=== PATIENT | male | born 1950 | race Caucasian/White ===

== ENCOUNTER → 2016-12-01 | Outpatient (CLI) | payer MEDICARE, OTHER ==
[2016-12-01 11:06] LABS: ALT 46 U/L (21-72); AST 41 U/L (17-59); Alkaline Phosphatase 46 U/L (38-126); Anion Gap 11 mmol/L; Blood Urea Nitrogen 19 mg/dL (9-20); Calcium 9.6 mg/dL (8.4-10.2); Carbon Dioxide 25 mmol/L (22-30); Chloride 112 mmol/L (98-107); Cholesterol 119 mg/dL (<200); Glucose 100 mg/dL (74-99); HDL Cholesterol 30 mg/dL (40-60); Non-African American GFR(MDRD) >60 (>60 ml/min/1.73 sqM); Sodium 148 mmol/L (137-145); Total Bilirubin 0.4 mg/dL (0.2-1.3); Total Protein 6.1 g/dL (6.3-8.2); Triglycerides 127 mg/dL (<150)
[2016-12-01 11:35] LABS: Prostate Specific Antigen 1.55 ng/mL (0.00-4.00)
== END | disposition home or self-care (01) ==
LOC: LABWHC1 10:24
PROVIDERS: ATTEND Family Medicine
DX: R35.1 Nocturia (principal); E88.81 Metabolic syndrome and other insulin resistance
CPT/HCPCS: 36415; 80053; 80061; 84153

== ENCOUNTER → 2017-05-08 | Outpatient (CLI) | payer MEDICARE, OTHER ==
[2017-05-08 11:18] LABS: CHCM 33.7; HCT 42.8 % (39.0-53.0); HDW 2.87; HGB 14.5 gm/dL (13.0-17.5); MCH 30.3 pg (25.0-35.0); MCV 89.3 fL (80.0-100.0); Mean Platelet Volume 9.3; WBC 6.5 k/uL (3.8-10.6)
[2017-05-08 11:54] LABS: ALT 54 U/L (21-72); AST 31 U/L (17-59); Alkaline Phosphatase 51 U/L (38-126); Anion Gap 9 mmol/L; Blood Urea Nitrogen 16 mg/dL (9-20); Calcium 9.3 mg/dL (8.4-10.2); Carbon Dioxide 25 mmol/L (22-30); Chloride 109 mmol/L (98-107); Cholesterol 119 mg/dL (<200); Glucose 118 mg/dL (74-99); HDL Cholesterol 32 mg/dL (40-60); Non-African American GFR(MDRD) >60 (>60 ml/min/1.73 sqM); Potassium 3.6 mmol/L (3.5-5.1); Sodium 143 mmol/L (137-145); Total Bilirubin 0.3 mg/dL (0.2-1.3); Total Protein 5.8 g/dL (6.3-8.2)
[2017-05-08 12:23] LABS: Prostate Specific Antigen 1.34 ng/mL (0.00-4.00)
== END | disposition home or self-care (01) ==
LOC: LABWHC1 10:43
PROVIDERS: ATTEND Family Medicine
DX: Z00.01 Encounter for general adult medical examination with abnormal findings (principal); N40.1 Benign prostatic hyperplasia with lower urinary tract symptoms; R53.83 Other fatigue; E66.3 Overweight
CPT/HCPCS: 36415; 80053; 80061; 84153; 85027

== ENCOUNTER → 2017-08-02 | Outpatient (CLI) | payer MEDICARE, OTHER ==
--- NOTE | 2017-08-02 14:30 | CT ---
EXAMINATION TYPE: CT sinus wo con DATE OF EXAM: 08/02/2017 COMPARISON: NONE HISTORY: Chronic sinusitis CT DLP: 618.10 mGycm. Automated Exposure Control for Dose Reduction was Utilized. TECHNIQUE: CT scan of the sinuses is performed without contrast, axial images are obtained, coronal r eformatted images are also reviewed. FINDINGS: Sphenoid sinus has a normal appearance. Frontal sinus demonstrates mild mucosal thickening. No air-fluid levels. There is retention cyst or polyps within both maxillary sinuses greater on the right with mild mucosa l thickening compatible with chronic sinusitis. Ethmoid air cells demonstrate minimal mucosal thickening.. The ostiomeatal complex is patent bilaterally on the coronal images. Visualized portion of mastoid air cells show no abnormal opacification. The globes are intact bilate rally. Slight nasal septal deviation noted. IMPRESSION: 1. Findings compatible with chronic mild sinusitis with no diagnostic evidence of sinusitis. Sinonasa l polyp or mucous retention cyst within the inferior margin bilaterally maxillary antrum.
== END | disposition home or self-care (01) ==
LOC: RADCTMAIN 13:21
PROVIDERS: ATTEND Otolaryngology
DX: J32.9 Chronic sinusitis, unspecified (principal)
CPT/HCPCS: 70486

== ENCOUNTER 2017-10-11 15:14 | Inpatient (IN) | payer MEDICARE, OTHER ==
[2017-10-11] MEDS ORDERED: SODIUM CHLORIDE 0.9% 1,000 ML IV STA ×2 (15:44)
--- NOTE | 2017-10-11 15:47 | ED ---
Weakness HPI - General Chief complaint: Weakness Stated complaint: hypotension Time Seen by Provider: 10/11/17 15:38 Source: patient, family, RN notes reviewed Mode of arrival: wheelchair Limitations: no limitations - History of Present Illness Initial comments: This is a 67-year-old male who was sent over here from his doctor's office after he presented with complaints of diarrhea nausea no vomiting low blood pressure. He apparently was diagnosed with a left sided pneumonia. He an x- ray done Sunday which was 3 days ago he had results today. He's had decreased oral intake he has had a cough for several weeks he states he's had chills and sweats. He is noted upon arousal have a 91/53 with pressure. No chest pain no focal weakness. MD Complaint: generalized weakness - Related Data Home Medications Medication Instructions Recorded Confirmed Aspirin 81 mg PO QAM 07/19/15 10/11/17 Celecoxib [CeleBREX] 200 mg PO BID 07/19/15 10/11/17 Folic Acid 0.4 mg PO QAM 07/19/15 10/11/17 Gabapentin [Neurontin] 600 mg PO BID 07/19/15 10/11/17 Losartan/Hydrochlorothiazide 1 tab PO QAM 07/19/15 10/11/17 [Losartan-Hctz 100-25 mg Tab] Multivitamin [Men's Multi-Vitamin] 1 tab PO QAM 07/19/15 10/11/17 Omeprazole [PriLOSEC] 20 mg PO AC-BRKFST 07/19/15 10/11/17 Pramipexole Di-HCl [Mirapex] 0.5 mg PO HS 07/19/15 10/11/17 Vitamin B Complex 1 cap PO QAM 07/19/15 10/11/17 amLODIPine [Norvasc] 5 mg PO QAM 07/19/15 10/11/17 Fenofibrate Nanocrystallized 160 mg PO QAM 05/17/16 10/11/17 [Triglide] Levothyroxine Sodium [Synthroid] 75 mcg PO QAM 10/11/17 10/11/17 Tamsulosin HCl [Flomax] 0.4 mg PO QAM 10/11/17 10/11/17 Allergies Allergy/AdvReac Type Severity Reaction Status Date / Time No Known Allergies Allergy Verified 10/11/17 16:07 Review of Systems ROS Statement: Those systems with pertinent positive or pertinent negative responses have been documented in the HPI. ROS Other: All systems not noted in ROS Statement are negative. Past Medical History Past Medical History: Diabetes Mellitus, GERD/Reflux, Hypertension, Osteoarthritis (OA) Additional Past Medical History / Comment(s): 07/19/15 Pt presented to [facility] ER via EMS with chest pain at rest, L sided and sharp as well as constant. Pain improved with NGT. He is being admitted with clinical impression of chest pain. Other HX: generalized arthritis, DJD, neuropathy bilateral legs, diverticulosis, pt states he is diabetic- he states he believes he is on a oral diabetic med but one is not listed with his home medication. History of Any Multi-Drug Resistant Organisms: None Reported Past Surgical History: Adenoidectomy, Breast Surgery, Cholecystectomy, Joint Replacement, Orthopedic Surgery, Tonsillectomy Additional Past Surgical History / Comment(s): L breast benign lumpectomy, bilateral legs cysts removed, R shoulder surgery -supraspinatus, bilateral unicompartmental replacements, colonoscopy, vasectomy with reversal. Past Anesthesia/Blood Transfusion Reactions: No Reported Reaction Past Psychological History: No Psychological Hx Reported Smoking Status: Never smoker Past Alcohol Use History: None Reported Past Drug Use History: None Reported - Past Family History Father Family Medical History: Unable to Obtain Additional Family Medical History / Comment(s): Pt adopted and does not know family history. General Exam - General Exam Comments Initial Comments: This is a well-developed well-nourished awake alert oriented times 3 male Limitations: no limitations General appearance: alert, lethargic Head exam: Present: atraumatic, normocephalic, normal inspection Eye exam: Present: normal appearance, PERRL, EOMI. Absent: scleral icterus, conjunctival injection, periorbital swelling ENT exam: Present: mucous membranes dry Neck exam: Present: normal inspection. Absent: tenderness, meningismus, lymphadenopathy Respiratory exam: Present: decreased breath sounds. Absent: respiratory distress, wheezes, rales, rhonchi, stridor Cardiovascular Exam: Present: regular rate, normal rhythm, normal heart sounds. Absent: systolic murmur, diastolic murmur, rubs, gallop, clicks GI/Abdominal exam: Present: soft, normal bowel sounds. Absent: distended, tenderness, guarding, rebound, rigid Extremities exam: Present: normal inspection, full ROM, normal capillary refill. Absent: tenderness, pedal edema, joint swelling, calf tenderness Back exam: Present: normal inspection Neurological exam: Present: alert, oriented X3, CN II-XII intact Psychiatric exam: Present: normal affect, normal mood Skin exam: Present: warm, dry, intact, normal color. Absent: rash Course Vital Signs 10/11/17 10/11/17 15:19 15:52 Temperature 97.8 F Pulse Rate 79 72 Respiratory 20 16 Rate Blood Pressure 76/38 93/51 O2 Sat by Pulse 97 98 Oximetry Medical Decision Making - Medical Decision Making I did discuss the findings with the patient and his . Patient will be admitted he does demonstrate evidence of acute renal failure dehydration as well as episodic hypotension. It will be admitted he also does demonstrate some evidence of acidosis. - Lab Data Result diagrams: 10/11/17 15:35 10/11/17 15:35 Lab Results 10/11/17 10/11/17 10/11/17 Range/Units 15:35 15:35 15:35 WBC 9.1 (3.8-10.6) k/uL RBC 5.14 (4.30-5.90) m/uL Hgb 14.8 (13.0-17.5) gm/dL Hct 45.5 (39.0-53.0) % MCV 88.5 (80.0-100.0) fL MCH 28.8 (25.0-35.0) pg MCHC 32.6 (31.0-37.0) g/dL RDW 14.6 (11.5-15.5) % Plt Count 190 (150-450) k/uL Neutrophils % 76 % Lymphocytes % 12 % Monocytes % 8 % Eosinophils % 1 % Basophils % 0 % Neutrophils # 7.0 (1.3-7.7) k/uL Lymphocytes # 1.1 (1.0-4.8) k/uL Monocytes # 0.7 (0-1.0) k/uL Eosinophils # 0.1 (0-0.7) k/uL Basophils # 0.0 (0-0.2) k/uL Sodium 139 (137-145) mmol/L Potassium 4.3 (3.5-5.1) mmol/L Chloride 110 H (98-107) mmol/L Carbon Dioxide 11 L (22-30) mmol/L Anion Gap 18 mmol/L BUN 45 H (9-20) mg/dL Creatinine 3.22 H (0.66-1.25) mg/dL Est GFR (CKD-EPI)AfAm 22 (>60 ml/min/1.73 sqM) Est GFR (CKD-EPI)NonAf 19 (>60 ml/min/1.73 sqM) Glucose 147 H (74-99) mg/dL Calcium 9.5 (8.4-10.2) mg/dL Magnesium 2.2 (1.6-2.3) mg/dL Total Bilirubin 0.5 (0.2-1.3) mg/dL AST 38 (17-59) U/L ALT 28 (21-72) U/L Alkaline Phosphatase 43 (38-126) U/L Total Creatine Kinase 93 (55-170) U/L CK-MB (CK-2) 1.2 (0.0-2.4) ng/mL CK-MB (CK-2) Rel Index 1.3 Troponin I <0.012 (0.000-0.034) ng/mL Total Protein 6.3 (6.3-8.2) g/dL Albumin 3.7 (3.5-5.0) g/dL - EKG Data -: EKG Interpreted by Md EKG shows normal: sinus rhythm (Sinus rhythm rate 74. Interval 196 QRS duration 114 QT since QTC 412/457 red bundle-branch block with anterior fascicular block evidence of old inferior changes.) - Radiology Data Radiology results: report reviewed (Imaging was reviewed no acute findings noted evidence of infiltrate at this time.), image reviewed Critical Care Time Critical Care Time: Yes (This did include initial presentation with history physical labs x-rays sev) Total Critical Care Time: 31 Disposition Clinical Impression: Acute renal failure (ARF), Dehydration, Metabolic acidosis, Hypotensive episode Disposition: ADMITTED IP TO THIS [facility] Condition: Stable Referrals: Nicolás Mir MD [Primary Care Provider] - 1-2 days
[2017-10-11 15:55] LABS: Basophils % (A) 0 %; Eosinophils # (A) 0.1 k/uL (0-0.7); Eosinophils % (A) 1 %; HCT 45.5 % (39.0-53.0); HGB 14.8 gm/dL (13.0-17.5); Lymphocytes # (A) 1.1 k/uL (1.0-4.8); Lymphocytes % (A) 12 %; MCH 28.8 pg (25.0-35.0); MCHC 32.6 g/dL (31.0-37.0); MCV 88.5 fL (80.0-100.0); Mean Platelet Volume 10.4; Monocytes # (A) 0.7 k/uL (0-1.0); Monocytes % (A) 8 %; Neutrophils % (A) 76 %; Platelet Count 190 k/uL (150-450); RBC 5.14 m/uL (4.30-5.90); RDW 14.6 % (11.5-15.5); WBC 9.1 k/uL (3.8-10.6)
--- NOTE | 2017-10-11 16:07 | XR ---
EXAMINATION TYPE: XR chest 2V DATE OF EXAM: 10/11/2017 COMPARISON: 05/18/2016 HISTORY: Recent pneumonia. Hypotension. Prior lung nodule seen on outside chest radiograph. TECHNIQUE: Frontal and lateral views of the chest are obtained. FINDINGS: There is eventration of the right hemidiaphragm. There is no focal air space opacity, pleur al effusion, or pneumothorax seen. The cardiac silhouette size is within normal limits. The osseou s structures are intact. IMPRESSION: No acute cardiopulmonary process. No focal nodule seen on today's examination although i s seen on the prior examination recommendation would remain for CT.
[2017-10-11 16:08] LABS: Albumin 3.7 g/dL (3.5-5.0); Calcium 9.5 mg/dL (8.4-10.2); Magnesium 2.2 mg/dL (1.6-2.3); Potassium 4.3 mmol/L (3.5-5.1); Total Bilirubin 0.5 mg/dL (0.2-1.3); Total Protein 6.3 g/dL (6.3-8.2)
[2017-10-11 16:15] LABS: Creatine Kinase 93 U/L (55-170)
[2017-10-11 16:28] LABS: Creatine Kinase MB 1.2 ng/mL (0.0-2.4); Troponin I <0.012 ng/mL (0.000-0.034)
[2017-10-11] MEDS ORDERED: SODIUM CHLORIDE 0.9% 1,000 ML IV SCH (17:15)
[2017-10-11] MEDS ORDERED: SODIUM BICARB 8.4% 50 ML VIAL (1 MEQ/ML) IV ONE (17:17)
[2017-10-11] MEDS ORDERED: DEXTROSE 5% IN WATER 1,000 ML with SODIUM BICARB (1 MEQ/ML) 50 ML IV ONE (17:30)
[2017-10-11] MEDS ORDERED: CALCIUM CARBONATE 500 MG CHEWABLE PO PRN (19:13)
[2017-10-11] MEDS ORDERED: ONDANSETRON 4 MG/2 ML VIAL IVP PRN (19:13)
[2017-10-11] MEDS ORDERED: NALOXONE 0.4 MG/ML 1 ML VIAL IV PRN (19:13)
[2017-10-11] MEDS ORDERED: MELATONIN 3 MG TABLET PO PRN (19:13)
[2017-10-11] MEDS ORDERED: LORazepam 0.5 MG TAB PO PRN (19:13)
[2017-10-11] MEDS: LACTATED RINGERS 1,000 ML IV SCH (19:43)
[2017-10-11] MEDS: GABAPENTIN 100 MG CAP PO SCH (21:41)
[2017-10-11] MEDS: PRAMIPEXOLE 0.5 MG TAB PO SCH (21:41)
--- NOTE | 2017-10-11 22:13 | HP ---
HISTORY AND PHYSICAL DATE OF ADMISSION: 10/11/2017 DATE OF SERVICE: 10/11/2017 PRESENTING COMPLAINT: Weak, tired, rundown. HISTORY OF PRESENTING COMPLAINT: This patient presented here from Dr. Mir's office. Patient's chronic stable medical conditions include GERD, hypertension, hyperlipidemia, osteoarthritis, peripheral neuropathy. The patient for 4 days has been having increasing diarrhea, anywhere from 4 to 5 times a day; watery; no blood; some abdominal discomfort. No fever. He has been becoming tired and confused; in fact, during the history-giving he keeps repeating he is getting confused. Appetite has been poor. Decreased urine output in the last 2 days. Feeling tired, dry, rundown. He was found to be hypotensive in the ER. He also stated that for about 12 or 13 weeks he has been having recurring upper respiratory tract symptoms, including runny nose, cough, slight phlegm. REVIEW OF SYSTEMS: CONSTITUTIONAL: Weak, tired. HEENT: None. RESPIRATORY: As above. CARDIOVASCULAR: None. GASTROINTESTINAL: As above. GENITOURINARY: Decreased urine output. DERMATOLOGICAL: None. HEMATOLOGICAL: None. LYMPHATICS: None. PSYCHIATRY: He was a bit confused. NEUROLOGICAL: Peripheral neuropathy. PAST MEDICAL HISTORY: 1. GERD. 2. Hyperlipidemia. 3. Hypertension. 4. Osteoarthritis. 5. Arthritis. 6. Chronic low back pain. 7. Peripheral neuropathy. 8. Diverticulosis. PAST SURGICAL HISTORY: 1. Adenoidectomy. 2. Breast surgery. 3. Cholecystectomy. 4. Cardiac catheterization. 5. Left breast benign lumpectomy. 6. Bilateral leg cysts removed. 7. Bilateral knee unicompartment replacements. 8. Colonoscopy. 9. Vasectomy with reversal. 10.Left thumb partial amputation. SOCIAL HISTORY: Lives with his . 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 No smoking. Used to drink socially but stopped in 1997. Denies recreational drugs. FAMILY HISTORY: Patient is adopted. HOME MEDICATIONS: 1. Flomax 0.4 mg p.o. daily. 2. Mirapex 0.5 mg p.o. at bedtime. 3. Prilosec 20 mg with breakfast. 4. Losartan/hydrochlorothiazide 100/25 one tablet p.o. daily. 5. Synthroid 75 mcg p.o. daily. 6. Neurontin 600 mg p.o. b.i.d. 7. Triglide 160 mg p.o. daily. 8. Norvasc 5 mg p.o. daily. 9. Vitamin B complex 1 capsule p.o. daily. 10.Men's Multivitamin 1 tablet p.o. daily. 11.Folic acid 0.4 mg p.o. daily. 12.Celebrex 200 mg p.o. b.i.d. 13.Aspirin 81 mg p.o. daily. ALLERGIES: NONE. PHYSICAL EXAMINATION: VITAL SIGNS ON PRESENTATION: Temperature 97.8, pulse 79, respiration 20, blood pressure 76/38, pulse ox 97% on room air. GENERAL APPEARANCE: Well built, BMI 36.9. Lying in bed, tired-appearing. Somewhat lethargic but able answer questions. EYES: Pupils equal. Conjunctivae normal. HEENT: External appearance of nose and ears normal. Oral cavity dry mucous membrane. NECK: JVD not raised. Mass not palpable. RESPIRATORY: Effort normal. LUNGS: Fair air entry. CARDIOVASCULAR: First and second sounds normal. No edema. ABDOMEN: Soft, non nontender. Liver and spleen not palpable. LYMPHATIC: No lymph node palpable in neck or axillae. PSYCHIATRY: The patient is awake. Answering questions but somewhat slow, lethargic. NEUROLOGICAL: Pupils equal. Cranial nerves grossly intact. Power and sensation grossly intact. INVESTIGATIONS: White count 9.1, hemoglobin 14.8, potassium 4.3, bicarb 11, BUN 45, creatinine 3.22. Patient's labs from April of 2017 show BUN and creatinine to be normal. ASSESSMENT: 1. Acute severe gastroenteritis of 4 days' duration with watery stools, no blood. Need to check for ova and parasites and rule out community-acquired C difficile, though patient denies any obvious recent history of antibiotics. 2. Acute severe renal failure, likely prerenal; cannot rule out possibly an acute tubular necrosis component. Patient is volume-depleted from severe diarrhea and also has been taking losartan/hydrochlorothiazide and also has been on Celebrex. 3. Gastroesophageal reflux disease. 4. Hyperlipidemia. 5. Hypotension from volume loss. 6. Primary osteoarthritis in multiple joints. 7. Peripheral neuropathy. 8. Acute delirium from electrolyte abnormalities. PLAN: Patient will be started on lactated Ringers. Will hold off patient's losartan/hydrochlorothiazide and Celebrex; and given the renal failure, will also cut back the dose of Neurontin. Patient will be put on a full liquid diet. Stool will be sent for ova and parasites and C difficile. Given the absence of fever and leukocytosis, we will hold off any empirical antibiotics at this time. Expect patient to respond with fluid resuscitation. Will give Lovenox for DVT prophylaxis. MMODL / IJN: [id number] /
[2017-10-12] MEDS: ACETAMINOPHEN TAB 325 MG TAB PO PRN ×3 (03:40→17:39)
[2017-10-12] MEDS: LEVOTHYROXINE 75 MCG TAB PO SCH (05:45)
[2017-10-12] MEDS: LACTATED RINGERS 1,000 ML IV SCH ×3 (05:51→20:16)
[2017-10-12] MEDS: ASPIRIN 81 MG PO SCH (08:30)
[2017-10-12] MEDS: PANTOPRAZOLE 40 MG TABLET PO SCH (08:30)
[2017-10-12] MEDS: amLODIPine 5 MG TAB PO SCH (08:30)
[2017-10-12] MEDS: GABAPENTIN 100 MG CAP PO SCH ×3 (08:31→20:15)
[2017-10-12] MEDS: TAMSULOSIN 0.4 MG CAP.ER.24H PO SCH (08:31)
[2017-10-12] MEDS: FENOFIBRATE 160 MG TAB PO SCH (08:31)
[2017-10-12] MEDS: FOLIC ACID 1 MG TAB PO SCH (08:31)
[2017-10-12 09:45] LABS: Potassium 3.5 mmol/L (3.5-5.1)
[2017-10-12 11:02] VITALS: BMI 36.8
[2017-10-12] MEDS ORDERED: MELATONIN 5 MG TABLET PO PRN (13:23)
[2017-10-12 13:25] LABS: Appearance,Urine Clear (Clear); Bilirubin,Urine Negative (Negative); Blood,Urine Negative (Negative); Color,Urine Yellow; Glucose,Urine (UA) Negative (Negative); Ketones,Urine Negative (Negative); Leukocyte Esterase,Urine Negative (Negative); Nitrite,Urine Negative (Negative); Protein,Urine Negative (Negative); Specific Gravity,Urine 1.016 (1.001-1.035); Urobilinogen,Urine <2.0 mg/dL (<2.0)
[2017-10-12] MEDS: DICLOFENAC SODIUM GEL 100 GM TUBE TOPICAL SCH ×3 (14:07→20:15)
--- NOTE | 2017-10-12 15:11 | PN ---
PROGRESS NOTE DATE OF SERVICE: 10/12/2017 PRESENTING COMPLAINT: Weak and tired. INTERVAL HISTORY: Patient presented with acute gastroenteritis, acute liver failure and some delirium from electrolyte abnormalities. Patient's diarrhea is greatly improved. Urine output is picking up, looking more comfortable. Diet has been advanced. REVIEW OF SYSTEMS: Done for constitutional, cardiovascular, GI, pulmonary; relevant findings as above. CURRENT MEDICATIONS: Resumed, includes IV fluids. PHYSICAL EXAMINATION: Temperature 97, pulse 89, respiration 18, blood pressure 140/67, pulse ox 97% on room air. GENERAL APPEARANCE: Lying in bed, far more awake. EYES: Pupils equal, conjunctivae normal. HEENT: External appearance of nose and ears normal, oral cavity normal. NECK: JVD not raised. Mass not palpable. Respiratory effort normal. Lungs are clear. CARDIOVASCULAR: First and second sounds are normal. No edema. ABDOMEN: Soft, nontender. Liver and spleen not palpable. PSYCHIATRY: Alert and oriented x3. Mood and affect normal. INVESTIGATIONS: Potassium 3.5, chloride 115, bicarb 11, BUN 44, creatinine 1.81. ASSESSMENT: 1. Acute severe gastroenteritis , self-limiting. 2. Acute severe renal failure likely prerenal from volume depletion and patient being on losartan hydrochlorothiazide and also on Celebrex. 3. Gastroesophageal reflux disease. 4. Hyperlipidemia. 5. Hypotension from volume loss, improving. 6. Primary osteoarthritis in multiple joints. 7. Peripheral neuropathy. 8. Acute delirium from electrolyte abnormality is improving. PLAN: Continue with IV fluids. Diet has been advanced. Repeat electrolytes in the morning. For his arthritis, will use a diclofenac gel, topical. Care was discussed with the patient. MMODL / IJN: [id number] /
[2017-10-12] MEDS ORDERED: VANCOMYCIN 1,000 MG in SODIUM CHLORIDE 0.9% 250 ML IVPB STA (18:30)
[2017-10-12] MEDS ORDERED: VANCOMYCIN IV PER PHARMACY 1 EACH MISC MISCELLANE PRN (18:30)
[2017-10-12] MEDS ORDERED: VANCOMYCIN 2,000 MG in SODIUM CHLORIDE 0.9% 500 ML IVPB ONE (19:00)
[2017-10-12] MEDS: DIPHENOX-ATROP 2.5-0.025 MG 1 EACH TAB PO SCH (20:15)
[2017-10-12] MEDS: PRAMIPEXOLE 0.5 MG TAB PO SCH (20:15)
[2017-10-13] MEDS: LACTATED RINGERS 1,000 ML IV SCH ×2 (03:18→11:21)
[2017-10-13] MEDS: LEVOTHYROXINE 75 MCG TAB PO SCH (05:44)
[2017-10-13 06:36] VITALS: BP 124/74; PULSE 81; RESP 20; TEMP 98.8
[2017-10-13 09:11] LABS: Calcium 9.2 mg/dL (8.4-10.2); Potassium 3.4 mmol/L (3.5-5.1)
[2017-10-13] MEDS: FENOFIBRATE 160 MG TAB PO SCH (09:33)
[2017-10-13] MEDS: DIPHENOX-ATROP 2.5-0.025 MG 1 EACH TAB PO SCH (09:33)
[2017-10-13] MEDS: DICLOFENAC SODIUM GEL 100 GM TUBE TOPICAL SCH (09:33)
[2017-10-13] MEDS: ASPIRIN 81 MG PO SCH (09:33)
[2017-10-13] MEDS: amLODIPine 5 MG TAB PO SCH (09:33)
[2017-10-13] MEDS: TAMSULOSIN 0.4 MG CAP.ER.24H PO SCH (09:33)
[2017-10-13] MEDS: PANTOPRAZOLE 40 MG TABLET PO SCH (09:33)
[2017-10-13] MEDS: GABAPENTIN 100 MG CAP PO SCH (09:33)
[2017-10-13] MEDS: FOLIC ACID 1 MG TAB PO SCH (09:39)
[2017-10-13] MEDS ORDERED: VANCOMYCIN 1,750 MG in SODIUM CHLORIDE 0.9% 250 ML IVPB SCH ×2 (10:00→19:00)
[2017-10-13] MEDS ORDERED: Potassium Replacement Protocol 1 EACH MISC MISCELLANE PRN ×2 (10:48→11:04)
--- NOTE | 2017-10-13 11:50 | P.DS ---
Providers Date of admission: 10/11/17 17:15 Expected date of discharge: 09/26/17 Attending physician: Yg Bailey Primary care physician: [facility] Course: Final diagnoses 1. Acute severe gastroenteritis. C. difficile ruled out 2. Acute severe renal failure, suspect prerenal secondary to volume depletion as well as patient was on losartan/HCTZ and Celebrex, improving. 3. Gastroesophageal reflux disease 4. Hyperlipidemia 5.Hypotension from volume loss, resolved 6. Primary osteoarthritis, multiple joints 7. Acute delirium, acute metabolic encephalopathy, from electrolyte imbalance, resolved Hospital course: This is a 67-year-old gentleman admitted with acute gastroenteritis, acute renal failure, and multiple other medical issues. Tested negative for C. difficile colitis. Maintained on IV fluid hydration, Lomotil, electrolyte supplementation. Tolerating soft bland diet. Significant clinical improvement. Patient is being discharged home in a stable condition with guarded prognosis. Microbiology 10/11/17 15:35 Blood Blood Culture Gram Stain - Preliminary 10/11/17 15:35 Blood Blood Culture - Preliminary Coagulase Negative Staph 10/11/17 15:35 Blood Blood Culture - Final Physical Exam:VSS,ALert & oriented X3, No acute distress. CV: Regular S1 and S2 , no edema. LUNGS: Clear to auscultation. ABD: Soft, nontender, nondistended, no organomegaly. Positive bowel sounds.NEURO: No focal deficits. The impression and plan of care has been dictated as directed. : I performed a history and examination of this patient, discussed the same with the dictator. I agree with the dictator's note ,documented as a scribe. Any additional findings or plans will be noted. Time taken: 35 minutes Patient Condition at Discharge: Stable Plan - Discharge Summary Discharge Rx Participant: No New Discharge Prescriptions: New Diclofenac Sodium Gel [Voltaren Gel] 2 gm TOPICAL QID tube Diphenox-Atrop 2.5-0.025 mg [Lomotil] 1 each PO TID PRN #10 tab PRN Reason: Diarrhea Gabapentin [Neurontin] 100 mg PO TID #90 cap Continue Omeprazole [PriLOSEC] 20 mg PO AC-BRKFST Aspirin 81 mg PO QAM amLODIPine [Norvasc] 5 mg PO QAM Folic Acid 0.4 mg PO QAM Multivitamin [Men's Multi-Vitamin] 1 tab PO QAM Pramipexole Di-HCl [Mirapex] 0.5 mg PO HS Vitamin B Complex 1 cap PO QAM Fenofibrate Nanocrystallized [Triglide] 160 mg PO QAM Levothyroxine Sodium [Synthroid] 75 mcg PO QAM Tamsulosin HCl [Flomax] 0.4 mg PO QAM Discontinued Gabapentin [Neurontin] 600 mg PO BID Celecoxib [CeleBREX] 200 mg PO BID Losartan/Hydrochlorothiazide [Losartan-Hctz 100-25 mg Tab] 1 tab PO QAM Discharge Medication List Aspirin 81 mg PO QAM 07/19/15 [History] Folic Acid 0.4 mg PO QAM 07/19/15 [History] Multivitamin [Men's Multi-Vitamin] 1 tab PO QAM 07/19/15 [History] Omeprazole [PriLOSEC] 20 mg PO AC-BRKFST 07/19/15 [History] Pramipexole Di-HCl [Mirapex] 0.5 mg PO HS 07/19/15 [History] Vitamin B Complex 1 cap PO QAM 07/19/15 [History] amLODIPine [Norvasc] 5 mg PO QAM 07/19/15 [History] Fenofibrate Nanocrystallized [Triglide] 160 mg PO QAM 05/17/16 [History] Levothyroxine Sodium [Synthroid] 75 mcg PO QAM 10/11/17 [History] Tamsulosin HCl [Flomax] 0.4 mg PO QAM 10/11/17 [History] Diclofenac Sodium Gel [Voltaren Gel] 2 gm TOPICAL QID tube 10/13/17 [Rx] Diphenox-Atrop 2.5-0.025 mg [Lomotil] 1 each PO TID PRN #10 tab 10/13/17 [Rx] Gabapentin [Neurontin] 100 mg PO TID #90 cap 10/13/17 [Rx] Follow up Appointment(s)/Referral(s): Nicolás Mir MD [Primary Care Provider] - 3 Days Ambulatory/Diagnostic Orders: Complete Blood Count w/diff [LAB.AMB] Time Frame: 3 Days, Location: Determined By Patient Activity/Diet/Wound Care/Special Instructions: Soft bland diet
[2017-10-13] MEDS ORDERED: POTASSIUM CHLORIDE ER 20 MEQ TAB.ER PO SCH (12:00)
== END 2017-10-13 13:58 | disposition home or self-care (01) | DRG 682 ==
LOC: EC 15:14 → 4MS4W 17:15
PROVIDERS: ADMIT Hospitalist; ATTEND Hospitalist
DX: N17.9 Acute kidney failure, unspecified (principal); G93.41 Metabolic encephalopathy; E87.2 Acidosis; K52.9 Noninfective gastroenteritis and colitis, unspecified; E86.0 Dehydration; K21.9 Gastro-esophageal reflux disease without esophagitis; I10 Essential (primary) hypertension; E78.5 Hyperlipidemia, unspecified; M54.5 Low back pain; G89.29 Other chronic pain; I95.9 Hypotension, unspecified; E11.42 Type 2 diabetes mellitus with diabetic polyneuropathy; E86.9 Volume depletion, unspecified; M15.0 Primary generalized (osteo)arthritis; T46.5X5A Adverse effect of other antihypertensive drugs, initial encounter; T39.395A Adverse effect of other nonsteroidal anti-inflammatory drugs [NSAID], initial encounter; Z96.653 Presence of artificial knee joint, bilateral; Z90.49 Acquired absence of other specified parts of digestive tract; Z98.890 Other specified postprocedural states; Z79.82 Long term (current) use of aspirin; Z79.899 Other long term (current) drug therapy; Z79.890 Hormone replacement therapy; Z89.012 Acquired absence of left thumb
CPT/HCPCS: 36415; 71046; 80048; 80053; 81003; 82550; 82553; 83735; 84484; 85025; 87040; 87077; 87186; 87324; 87328; 87329; 93005; 96360; 96361; 99291

== ENCOUNTER 2017-10-15 10:53 | Emergency (ER) | payer MEDICARE, OTHER ==
[2017-10-15] MEDS ORDERED: SODIUM CHLORIDE 0.9% 1,000 ML IV STA (11:48)
[2017-10-15] MEDS ORDERED: diphenhydrAMINE 50 MG/ML 1 ML VIAL IVP STA (11:48)
[2017-10-15] MEDS ORDERED: ONDANSETRON 4 MG/2 ML VIAL IVP STA (11:48)
--- NOTE | 2017-10-15 11:50 | ED ---
General Adult HPI - General Chief complaint: Dizziness Stated complaint: DIZZINESS Time Seen by Provider: 10/15/17 11:33 Source: patient, RN notes reviewed, old records reviewed Mode of arrival: wheelchair Limitations: no limitations - History of Present Illness Initial comments: This is a 67-year-old male to the ER for evaluation patient presents today for evaluation regards to dizziness. Room spinning around ataxia. Patient has significant medical history recent diagnosis of flu, pneumonia hospital admission. Patient states he felt better that he went home but is isn't physically worsened. No current active nausea vomiting but he states he cannot walk is very ataxic and is unable to move his head without severe spinning room spinning lightheadedness and nausea. Patient denies headache - Related Data Home Medications Medication Instructions Recorded Confirmed Aspirin 81 mg PO QAM 07/19/15 10/15/17 Folic Acid 0.4 mg PO QAM 07/19/15 10/15/17 Multivitamin [Men's Multi-Vitamin] 1 tab PO QAM 07/19/15 10/15/17 Omeprazole [PriLOSEC] 20 mg PO AC-BRKFST 07/19/15 10/15/17 Pramipexole Di-HCl [Mirapex] 0.5 mg PO HS 07/19/15 10/15/17 Vitamin B Complex 1 cap PO QAM 07/19/15 10/15/17 amLODIPine [Norvasc] 5 mg PO QAM 07/19/15 10/15/17 Fenofibrate Nanocrystallized 160 mg PO QAM 05/17/16 10/15/17 [Triglide] Levothyroxine Sodium [Synthroid] 75 mcg PO QAM 10/11/17 10/15/17 Tamsulosin HCl [Flomax] 0.4 mg PO QAM 10/11/17 10/15/17 Diphenox-Atrop 2.5-0.025 mg 1 tab PO TID PRN 10/15/17 10/15/17 [Lomotil] Previous Rx's Medication Instructions Recorded Diclofenac Sodium Gel [Voltaren 2 gm TOPICAL QID tube 10/13/17 Gel] Gabapentin [Neurontin] 100 mg PO TID #90 cap 10/13/17 Meclizine [Antivert] 25 mg PO TID #30 tab 10/15/17 Ondansetron Odt [Zofran ODT] 4 mg PO Q8HR PRN #30 tab 10/15/17 Allergies Allergy/AdvReac Type Severity Reaction Status Date / Time No Known Allergies Allergy Verified 10/15/17 11:35 Review of Systems ROS Statement: Those systems with pertinent positive or pertinent negative responses have been documented in the HPI. ROS Other: All systems not noted in ROS Statement are negative. Past Medical History Past Medical History: Chest Pain / Angina, GERD/Reflux, Hyperlipidemia, Hypertension, Osteoarthritis (OA), Pneumonia Additional Past Medical History / Comment(s): . generalized arthritis,chronic lower backpain, DJD, neuropathy bilateral legs, diverticulosis, History of Any Multi-Drug Resistant Organisms: None Reported Past Surgical History: Adenoidectomy, Breast Surgery, Cholecystectomy, Heart Catheterization, Joint Replacement, Orthopedic Surgery, Tonsillectomy Additional Past Surgical History / Comment(s): L breast benign lumpectomy, bilateral legs cysts removed, R shoulder surgery -supraspinatus, bilateral knees unicompartmental replacements, colonoscopy, vasectomy with reversal.lt thumb partial amputaion Past Anesthesia/Blood Transfusion Reactions: No Reported Reaction Past Psychological History: No Psychological Hx Reported Smoking Status: Never smoker Past Alcohol Use History: None Reported Past Drug Use History: None Reported - Past Family History Father Family Medical History: Unable to Obtain Additional Family Medical History / Comment(s): Pt adopted and does not know family history. General Exam Limitations: no limitations General appearance: alert, in no apparent distress Head exam: Present: atraumatic, normocephalic, normal inspection Eye exam: Present: normal appearance, PERRL, EOMI, nystagmus. Absent: scleral icterus, conjunctival injection, periorbital swelling ENT exam: Present: normal exam, mucous membranes moist Neck exam: Present: normal inspection. Absent: tenderness, meningismus, lymphadenopathy Respiratory exam: Present: normal lung sounds bilaterally. Absent: respiratory distress, wheezes, rales, rhonchi, stridor Cardiovascular Exam: Present: regular rate, normal rhythm, normal heart sounds. Absent: systolic murmur, diastolic murmur, rubs, gallop, clicks GI/Abdominal exam: Present: soft, normal bowel sounds. Absent: distended, tenderness, guarding, rebound, rigid Extremities exam: Present: normal inspection, full ROM, normal capillary refill. Absent: tenderness, pedal edema, joint swelling, calf tenderness Back exam: Present: normal inspection Neurological exam: Present: alert, oriented X3, CN II-XII intact Psychiatric exam: Present: normal affect, normal mood Skin exam: Present: warm, dry, intact, normal color. Absent: rash Course Vital Signs 10/15/17 10/15/17 10/15/17 11:15 12:15 13:25 Temperature 97.8 F 98.0 F 97.5 F L Pulse Rate 80 76 73 Respiratory 18 18 18 Rate Blood Pressure 128/61 123/70 134/69 O2 Sat by Pulse 96 95 96 Oximetry 10/15/17 14:15 Temperature 97.4 F L Pulse Rate 77 Respiratory 20 Rate Blood Pressure 128/62 O2 Sat by Pulse 95 Oximetry - Reevaluation(s) Reevaluation #1: 10/15/17 15:14 patient feeling better able to ambulate EKG Findings - EKG Comments: EKG Findings:: EKG shows normal sinus rhythm rate of 75, [place] 180, QRS 114, QTc 462 Medical Decision Making - Medical Decision Making 67 male to the ED w vertigo, diziness, room spinning vertigo is now resolved, ok for discharge to return with worseing symptoms - Lab Data Result diagrams: 10/15/17 12:48 10/15/17 12:48 Lab Results 10/15/17 10/15/17 10/15/17 Range/Units 12:48 12:48 12:48 WBC 8.0 (3.8-10.6) k/uL RBC 5.05 (4.30-5.90) m/uL Hgb 14.6 (13.0-17.5) gm/dL Hct 43.5 (39.0-53.0) % MCV 86.1 (80.0-100.0) fL MCH 28.9 (25.0-35.0) pg MCHC 33.6 (31.0-37.0) g/dL RDW 14.4 (11.5-15.5) % Plt Count 210 (150-450) k/uL Neutrophils % 68 % Lymphocytes % 17 % Monocytes % 9 % Eosinophils % 3 % Basophils % 0 % Neutrophils # 5.5 (1.3-7.7) k/uL Lymphocytes # 1.4 (1.0-4.8) k/uL Monocytes # 0.7 (0-1.0) k/uL Eosinophils # 0.3 (0-0.7) k/uL Basophils # 0.0 (0-0.2) k/uL Sodium 145 (137-145) mmol/L Potassium 3.6 (3.5-5.1) mmol/L Chloride 110 H (98-107) mmol/L Carbon Dioxide 21 L (22-30) mmol/L Anion Gap 14 mmol/L BUN 24 H (9-20) mg/dL Creatinine 0.90 (0.66-1.25) mg/dL Est GFR (CKD-EPI)AfAm >90 (>60 ml/min/1.73 sqM) Est GFR (CKD-EPI)NonAf 88 (>60 ml/min/1.73 sqM) Glucose 115 H (74-99) mg/dL Calcium 9.7 (8.4-10.2) mg/dL Phosphorus 2.9 (2.5-4.5) mg/dL Magnesium 2.0 (1.6-2.3) mg/dL Total Bilirubin 0.3 (0.2-1.3) mg/dL AST 38 (17-59) U/L ALT 49 (21-72) U/L Alkaline Phosphatase 58 (38-126) U/L Total Creatine Kinase 72 (55-170) U/L CK-MB (CK-2) 1.4 (0.0-2.4) ng/mL CK-MB (CK-2) Rel Index 1.9 Troponin I <0.012 (0.000-0.034) ng/mL Total Protein 5.7 L (6.3-8.2) g/dL Albumin 3.4 L (3.5-5.0) g/dL - Radiology Data Radiology results: report reviewed (CT brain CT a head and neck negative for acute disease), image reviewed Disposition Clinical Impression: Dizziness, Vertigo Disposition: HOME SELF-CARE Condition: Good Instructions: Vertigo (ED), Dizziness (ED) Is patient prescribed a controlled substance at d/c from ED?: No Referrals: Nicolás Mir MD [Primary Care Provider] - 1-2 days
[2017-10-15 13:02] LABS: Basophils % (A) 0 %; Eosinophils # (A) 0.3 k/uL (0-0.7); Eosinophils % (A) 3 %; HCT 43.5 % (39.0-53.0); HGB 14.6 gm/dL (13.0-17.5); Lymphocytes # (A) 1.4 k/uL (1.0-4.8); Lymphocytes % (A) 17 %; MCH 28.9 pg (25.0-35.0); MCHC 33.6 g/dL (31.0-37.0); MCV 86.1 fL (80.0-100.0); Mean Platelet Volume 9.8; Monocytes # (A) 0.7 k/uL (0-1.0); Monocytes % (A) 9 %; Neutrophils # (A) 5.5 k/uL (1.3-7.7); Neutrophils % (A) 68 %; Platelet Count 210 k/uL (150-450); RBC 5.05 m/uL (4.30-5.90); RDW 14.4 % (11.5-15.5)
[2017-10-15 13:13] LABS: ALT 49 U/L (21-72); AST 38 U/L (17-59); Albumin 3.4 g/dL (3.5-5.0); Alkaline Phosphatase 58 U/L (38-126); Anion Gap 14 mmol/L; Blood Urea Nitrogen 24 mg/dL (9-20); Calcium 9.7 mg/dL (8.4-10.2); Carbon Dioxide 21 mmol/L (22-30); Chloride 110 mmol/L (98-107); Glucose 115 mg/dL (74-99); Phosphorus 2.9 mg/dL (2.5-4.5); Potassium 3.6 mmol/L (3.5-5.1); Sodium 145 mmol/L (137-145); Total Bilirubin 0.3 mg/dL (0.2-1.3); Total Protein 5.7 g/dL (6.3-8.2)
[2017-10-15 13:28] LABS: Creatine Kinase 72 U/L (55-170)
--- NOTE | 2017-10-15 13:28 | XR ---
EXAMINATION TYPE: XR chest 2V DATE OF EXAM: 10/15/2017 COMPARISON: 10/11/2017 HISTORY: Weakness and dizziness TECHNIQUE: Frontal and lateral views of the chest are obtained. FINDINGS: There is no focal air space opacity, pleural effusion, or pneumothorax seen. There is pul monary per inflation and flattening of the diaphragms on the lateral image suggestive of underlying C OPD. The cardiac silhouette size is within normal limits. The osseous structures are intact. IMPRESSION: No acute cardiopulmonary process. Findings suggestive of underlying COPD.
--- NOTE | 2017-10-15 13:32 | CT ---
EXAMINATION TYPE: CT brain wo con DATE OF EXAM: 10/15/2017 COMPARISON: NONE HISTORY: Dizziness and weakness. CT DLP: 1121 mGycm Automated exposure control for dose reduction was used. FINDINGS: There is moderate generalized degenerative change with a greater frontal lobe component. No midline s hift or mass effect. Nodular prominence in distribution of the left MCA measuring 4 mm. Changes of chronic sinusitis noted. Calvarium intact. IMPRESSION: NO ACUTE HEMORRHAGE OR MASS EFFECT. DEGENERATIVE CHANGES ARE SEEN WITH A GREATER FRONTAL LOBE COMPONE NT. IF THERE IS CONCERN FOR ACUTE ISCHEMIA CORRELATE WITH MRI CLINICALLY WARRANTED. THERE IS A 4 MM NODULAR PROMINENCE OF THE LEFT MCA SUSPICIOUS FOR ANEURYSM. RECOMMEND FOLLOW-UP MRA C IRCLE OF RAY. NO ACUTE INTRACRANIAL HEMORRHAGE.
[2017-10-15 13:41] LABS: Creatine Kinase MB 1.4 ng/mL (0.0-2.4); Troponin I <0.012 ng/mL (0.000-0.034)
[2017-10-15] MEDS ORDERED: RX INFO: IV CONTRAST WAS GIVEN 1 EACH MISC MISCELLANE PRN (13:46)
[2017-10-15 14:22] VITALS: TEMP 97.4
--- NOTE | 2017-10-15 14:37 | CT ---
EXAMINATION TYPE: CT angio head neck DATE OF EXAM: 10/15/2017 HISTORY: Dizziness and weakness. COMPARISON: Carotid ultrasound June 15, 2014 CT DLP: 370 mGycm. Automated Exposure Control for Dose Reduction was Utilized. TECHNIQUE: CTA scan of the neck is performed with IV Contrast, patient injected with 65 mL of Isovue 370, axial images are obtained, coronal and sagittal reformatted images are reviewed. Three-D recons tructed images are created on an independent workstation and reviewed. FINDINGS: Carotid/Vascular Structures: There is normal three-vessel origin from the aortic arch. No significant plaque or stenosis is seen. Bilateral subclavian arteries show no significant stenosis. Right common carotid artery shows normal origin from right brachiocephalic artery. There is slightly tortuous cou rse without significant plaque or stenosis. There is patent external carotid artery without significa nt plaque or stenosis. No significant plaque at carotid bulb level is identified. Right internal sahu tid artery shows no significant plaque or stenosis. There is no significant plaque or stenosis in the left common or internal carotid arteries including at level of carotid bulb. Slightly tortuous course is present. There is patent left external carotid artery without significant plaque or stenosis. There is dominant right vertebral artery. Vertebral arteries are patent to basilar junction. There is patent right posterior communicating artery. There is hypoplastic left posterior communicating arter y. There is no significant stenosis or aneurysm in the posterior circulation. Images of the anterior circulation show patent anterior communicating artery. There is no significant stenosis or aneurysmal change seen. Other: Mild to moderate spurring and disc space narrowing C5-C6 level is present. IMPRESSION: 1. No significant focal stenosis in common or internal carotid arteries bilaterally. 2. No significant stenosis or aneurysmal change at level of [place].
[2017-10-15 15:15] VITALS: BP 128/70; PULSE 73; RESP 18
== END 2017-10-15 15:40 | disposition home or self-care (01) ==
LOC: EC 10:53
DX: R42 Dizziness and giddiness (principal); R27.0 Ataxia, unspecified; K21.9 Gastro-esophageal reflux disease without esophagitis; E78.5 Hyperlipidemia, unspecified; I10 Essential (primary) hypertension; Z98.890 Other specified postprocedural states; Z79.82 Long term (current) use of aspirin; Z79.899 Other long term (current) drug therapy
CPT/HCPCS: 96361 ×2; 96374 ×2; 96375 ×2; 99285 ×2; 36415; 93005; 80053; 82550; 82553; 83735; 84100; 84484; 85025; 71046; 70496; 70450; 70498; J1200; J2405; Q9967

== ENCOUNTER → 2017-11-06 | Outpatient (CLI) | payer MEDICARE, OTHER ==
--- NOTE | 2017-11-06 09:38 | MR ---
EXAMINATION TYPE: MR angio head wo con DATE OF EXAM: 11/06/2017 COMPARISON: CT brain and CT [employer]otech head and neck dated 10/15/2017 HISTORY: Vertigo TECHNIQUE: Time of flight images focusing on the [place] were performed without contrast. 2-D and 3-D postprocessing imaging is performed. FINDINGS: There is no evidence of hemodynamically significant stenosis or dissection. The left verteb ral artery is dominant. There is an elongated common trunk of the superior cerebellar artery and the left with the P1 segment of the posterior cerebral artery. There is additionally ectasia and a sharp acute angle of the basilar artery as it courses leftward to create an elongated common trunk. The sup erior cerebellar artery on the right originates strictly from the acute turn of the basilar artery as does the right posterior cerebral artery. Incidental note is made of mild mucosal thickening of the bilateral maxillary sinuses. IMPRESSION: 1. No evidence of focal vascular occlusion, hemodynamically significant stenosis, intracranial aneury sm or dissection. 2. Normal variant anatomy of the posterior circulation as described above. 3. Mild mucosal thickening in the maxillary sinuses.
== END | disposition home or self-care (01) ==
LOC: RADMRIMAIN 08:10
PROVIDERS: ATTEND Family Medicine
DX: R42 Dizziness and giddiness (principal)
CPT/HCPCS: 70544

== ENCOUNTER 2018-07-28 16:27 | Observation (INO) | payer MEDICARE, OTHER ==
[2018-07-28 17:21] LABS: Basophils # (A) 0.1 k/uL (0-0.2); Basophils % (A) 1 %; Eosinophils # (A) 0.2 k/uL (0-0.7); Eosinophils % (A) 3 %; HCT 43.5 % (39.0-53.0); HGB 14.3 gm/dL (13.0-17.5); Lymphocytes # (A) 1.2 k/uL (1.0-4.8); Lymphocytes % (A) 13 %; MCH 29.7 pg (25.0-35.0); MCV 90.2 fL (80.0-100.0); Mean Platelet Volume 9.6; Monocytes # (A) 0.6 k/uL (0-1.0); Monocytes % (A) 7 %; Neutrophils # (A) 6.6 k/uL (1.3-7.7); Neutrophils % (A) 74 %; Platelet Count 160 k/uL (150-450); RBC 4.82 m/uL (4.30-5.90); RDW 14.6 % (11.5-15.5); WBC 8.9 k/uL (3.8-10.6)
[2018-07-28 17:38] LABS: ALT 31 U/L (21-72); AST 23 U/L (17-59); Albumin 3.6 g/dL (3.5-5.0); Alkaline Phosphatase 34 U/L (38-126); Anion Gap 7 mmol/L; Blood Urea Nitrogen 16 mg/dL (9-20); Calcium 10.4 mg/dL (8.4-10.2); Carbon Dioxide 26 mmol/L (22-30); Chloride 111 mmol/L (98-107); Creatine Kinase 54 U/L (55-170); Glucose 140 mg/dL (74-99); Sodium 144 mmol/L (137-145); Total Bilirubin 0.4 mg/dL (0.2-1.3)
[2018-07-28 17:50] LABS: Creatine Kinase MB 0.8 ng/mL (0.0-2.4); Troponin I <0.012 ng/mL (0.000-0.034)
[2018-07-28 17:55] LABS: Partial Thromboplastin Time 22.3 sec (22.0-30.0); Prothrombin Time 10.3 sec (9.0-12.0)
--- NOTE | 2018-07-28 18:13 | ED ---
General Adult HPI - General Chief complaint: Shortness of Breath Stated complaint: CHEST PAIN/EMMA Time Seen by Provider: 07/28/18 16:45 Source: patient, RN notes reviewed Mode of arrival: wheelchair Limitations: no limitations - History of Present Illness Initial comments: Patient is a pleasant 68-year-old female presenting to the emergency Department with complaints of shortness of breath. Onset of symptoms was this morning. Symptoms persist however now have resolved since oxygen has been using emergency department. Patient has had several episodes of chest pressure throughout the day, each lasting under a minute. Patient has not had this in a couple of hours and no chest discomfort at this time. Discomfort was moderate. No associated nausea or vomiting or diaphoresis. No history of similar symptoms previously. Patient is a nonsmoker. - Related Data Home Medications Medication Instructions Recorded Confirmed Aspirin 81 mg PO QAM 07/19/15 07/28/18 Folic Acid 0.4 mg PO QAM 07/19/15 07/28/18 Multivitamin [Men's Multi-Vitamin] 1 tab PO QAM 07/19/15 07/28/18 Pramipexole Di-HCl [Mirapex] 0.5 mg PO HS 07/19/15 07/28/18 Vitamin B Complex 1 cap PO QAM 07/19/15 07/28/18 amLODIPine [Norvasc] 5 mg PO QAM 07/19/15 07/28/18 Fenofibrate Nanocrystallized 160 mg PO QAM 05/17/16 07/28/18 [Triglide] Levothyroxine Sodium [Synthroid] 75 mcg PO QAM 10/11/17 07/28/18 Tamsulosin HCl [Flomax] 0.4 mg PO QAM 10/11/17 07/28/18 Celecoxib [CeleBREX] 200 mg PO BID 07/28/18 07/28/18 Furosemide [Lasix] 20 mg PO DAILY PRN 07/28/18 07/28/18 Gabapentin 600 mg PO BID 07/28/18 07/28/18 Losartan/Hydrochlorothiazide 1 tab PO DAILY 07/28/18 07/28/18 [Hyzaar 100-25 Tablet] Allergies Allergy/AdvReac Type Severity Reaction Status Date / Time No Known Allergies Allergy Verified 07/28/18 18:37 Review of Systems ROS Statement: Those systems with pertinent positive or pertinent negative responses have been documented in the HPI. ROS Other: All systems not noted in ROS Statement are negative. Constitutional: Denies: fever Eyes: Denies: eye pain ENT: Denies: ear pain Respiratory: Reports: dyspnea. Denies: cough Cardiovascular: Reports: chest pain. Denies: palpitations Endocrine: Denies: fatigue Gastrointestinal: Denies: abdominal pain Genitourinary: Denies: dysuria Musculoskeletal: Denies: back pain Skin: Denies: rash Neurological: Denies: weakness Past Medical History Past Medical History: Chest Pain / Angina, GERD/Reflux, Hyperlipidemia, Hypertension, Osteoarthritis (OA), Pneumonia Additional Past Medical History / Comment(s): . generalized arthritis,chronic lower backpain, DJD, neuropathy bilateral legs, diverticulosis, History of Any Multi-Drug Resistant Organisms: None Reported Past Surgical History: Adenoidectomy, Breast Surgery, Cholecystectomy, Heart Catheterization, Joint Replacement, Orthopedic Surgery, Tonsillectomy Additional Past Surgical History / Comment(s): L breast benign lumpectomy, bilateral legs cysts removed, R shoulder surgery -supraspinatus, bilateral knees unicompartmental replacements, colonoscopy, vasectomy with reversal.lt thumb partial amputaion Past Anesthesia/Blood Transfusion Reactions: No Reported Reaction Past Psychological History: No Psychological Hx Reported Smoking Status: Never smoker Past Alcohol Use History: None Reported Past Drug Use History: None Reported - Past Family History Father Family Medical History: Unable to Obtain Additional Family Medical History / Comment(s): Pt adopted and does not know family history. General Exam Limitations: no limitations General appearance: alert, in no apparent distress Head exam: Present: atraumatic Eye exam: Present: normal appearance, PERRL ENT exam: Present: normal oropharynx Neck exam: Present: normal inspection Respiratory exam: Present: normal lung sounds bilaterally. Absent: chest wall tenderness Cardiovascular Exam: Present: regular rate, normal rhythm Expanded Peripheral pulses: 2+: Radial (R), Radial (L), Posterior Tibialis (R), Posterior Tibialis (L) GI/Abdominal exam: Present: soft. Absent: distended, tenderness Extremities exam: Present: pedal edema (Trace bilateral which patient states is chronic). Absent: calf tenderness Back exam: Present: normal inspection Neurological exam: Present: alert Psychiatric exam: Present: normal affect, normal mood Skin exam: Present: normal color. Absent: rash Course Vital Signs 07/28/18 07/28/18 07/28/18 16:29 16:56 18:37 Temperature 98.5 F Pulse Rate 102 H 79 82 Respiratory 22 18 18 Rate Blood Pressure 166/90 150/95 156/99 O2 Sat by Pulse 94 L 97 97 Oximetry 07/28/18 20:13 Temperature 99.1 F Pulse Rate 79 Respiratory 16 Rate Blood Pressure 145/90 O2 Sat by Pulse 97 Oximetry EKG Findings - EKG Comments: EKG Findings:: Sinus rhythm at 81. First-degree AV block with a AK of 220. QRS 140. QTc 412. QTC 478. Left axis. Right bundle branch block. Inferior Q waves. No acute ST change. Medical Decision Making - Medical Decision Making Patient reevaluated. Patient and family updated on results and plan. Case was crusted detail with Dr. Arana, who will admit covering for Dr. Mir. - Lab Data Result diagrams: 07/28/18 16:56 07/28/18 16:56 Lab Results 07/28/18 07/28/18 07/28/18 Range/Units 16:56 16:56 16:56 WBC 8.9 (3.8-10.6) k/uL RBC 4.82 (4.30-5.90) m/uL Hgb 14.3 (13.0-17.5) gm/dL Hct 43.5 (39.0-53.0) % MCV 90.2 (80.0-100.0) fL MCH 29.7 (25.0-35.0) pg MCHC 33.0 (31.0-37.0) g/dL RDW 14.6 (11.5-15.5) % Plt Count 160 (150-450) k/uL Neutrophils % 74 % Lymphocytes % 13 % Monocytes % 7 % Eosinophils % 3 % Basophils % 1 % Neutrophils # 6.6 (1.3-7.7) k/uL Lymphocytes # 1.2 (1.0-4.8) k/uL Monocytes # 0.6 (0-1.0) k/uL Eosinophils # 0.2 (0-0.7) k/uL Basophils # 0.1 (0-0.2) k/uL PT (9.0-12.0) sec INR (<1.2) APTT (22.0-30.0) sec D-Dimer (<0.60) mg/L FEU Sodium 144 (137-145) mmol/L Potassium 4.0 (3.5-5.1) mmol/L Chloride 111 H (98-107) mmol/L Carbon Dioxide 26 (22-30) mmol/L Anion Gap 7 mmol/L BUN 16 (9-20) mg/dL Creatinine 0.78 (0.66-1.25) mg/dL Est GFR (CKD-EPI)AfAm >90 (>60 ml/min/1.73 sqM) Est GFR (CKD-EPI)NonAf >90 (>60 ml/min/1.73 sqM) Glucose 140 H (74-99) mg/dL Calcium 10.4 H (8.4-10.2) mg/dL Total Bilirubin 0.4 (0.2-1.3) mg/dL AST 23 (17-59) U/L ALT 31 (21-72) U/L Alkaline Phosphatase 34 L (38-126) U/L Total Creatine Kinase 54 L (55-170) U/L CK-MB (CK-2) 0.8 (0.0-2.4) ng/mL CK-MB (CK-2) Rel Index 1.5 Troponin I <0.012 (0.000-0.034) ng/mL NT-Pro-B Natriuret Pep pg/mL Total Protein 6.0 L (6.3-8.2) g/dL Albumin 3.6 (3.5-5.0) g/dL 07/28/18 07/28/18 07/28/18 Range/Units 16:56 16:56 16:56 WBC (3.8-10.6) k/uL RBC (4.30-5.90) m/uL Hgb (13.0-17.5) gm/dL Hct (39.0-53.0) % MCV (80.0-100.0) fL MCH (25.0-35.0) pg MCHC (31.0-37.0) g/dL RDW (11.5-15.5) % Plt Count (150-450) k/uL Neutrophils % % Lymphocytes % % Monocytes % % Eosinophils % % Basophils % % Neutrophils # (1.3-7.7) k/uL Lymphocytes # (1.0-4.8) k/uL Monocytes # (0-1.0) k/uL Eosinophils # (0-0.7) k/uL Basophils # (0-0.2) k/uL PT 10.3 (9.0-12.0) sec INR 1.0 (<1.2) APTT 22.3 (22.0-30.0) sec D-Dimer 1.56 H (<0.60) mg/L FEU Sodium (137-145) mmol/L Potassium (3.5-5.1) mmol/L Chloride (98-107) mmol/L Carbon Dioxide (22-30) mmol/L Anion Gap mmol/L BUN (9-20) mg/dL Creatinine (0.66-1.25) mg/dL Est GFR (CKD-EPI)AfAm (>60 ml/min/1.73 sqM) Est GFR (CKD-EPI)NonAf (>60 ml/min/1.73 sqM) Glucose (74-99) mg/dL Calcium (8.4-10.2) mg/dL Total Bilirubin (0.2-1.3) mg/dL AST (17-59) U/L ALT (21-72) U/L Alkaline Phosphatase (38-126) U/L Total Creatine Kinase (55-170) U/L CK-MB (CK-2) (0.0-2.4) ng/mL CK-MB (CK-2) Rel Index Troponin I (0.000-0.034) ng/mL NT-Pro-B Natriuret Pep 60 pg/mL Total Protein (6.3-8.2) g/dL Albumin (3.5-5.0) g/dL - Radiology Data Radiology results: report reviewed (Computed tomography scan of the chest is positive for pulmonary embolism bilateral upper and lower.), image reviewed ( Chest x-ray shows no acute process) Critical Care Time Critical Care Time: Yes Total Critical Care Time: 33 Disposition Clinical Impression: Pulmonary embolism Disposition: ADMITTED IP TO THIS [facility] Is patient prescribed a controlled substance at d/c from ED?: No Referrals: Nicolás Mir MD [Primary Care Provider] - 1-2 days Decision Time: 20:32
--- NOTE | 2018-07-28 19:50 | XR ---
EXAMINATION TYPE: XR chest 2V DATE OF EXAM: 07/28/2018 COMPARISON: 10/15/2017 INDICATION: Weakness TECHNIQUE: Frontal and lateral views of the chest are obtained. FINDINGS: The heart size is normal. The pulmonary vasculature is normal. The lungs are clear. IMPRESSION: 1. No acute pulmonary process.
--- NOTE | 2018-07-28 20:07 | CT ---
CT CHEST FOR PULMONARY EMBOLISM. EXAMINATION TYPE: CT angio chest DATE OF EXAM: 07/28/2018 INDICATION: SOB CT DLP: 678 mGycm, Automated exposure control for dose reduction was used. CONTRAST: Patient injected with 100 mL of Isovue 300. COMPARISON: None TECHNIQUE: CT of the chest is performed on a spiral scan at 2 mm thick sections. Study is performed with intravenous contrast timed for evaluation for pulmonary embolism. This will limit additional po rtions of the evaluation. 3-D MIP images reconstructed by the technologist are reviewed on the compu ter in the coronal and sagittal planes. FINDINGS: Upper and lower lobe pulmonary arteries contain thrombus compatible with acute pulmonary emboli. No mediastinal or hilar adenopathy enlarged by CT criteria is evident. The ascending aorta diameter at the level of the main pulmonary artery is 3.8 cm. The main pulmonary artery diameter at the bifur cation is 3.8 cm. No septal wall deviation is evident. No reflux into the inferior vena cava is evide nt. No significant right heart strain. Pulmonary report was called to the emergency room physician Dr. Hercules by Dr. Christian 2002 hours 2018 Lung windows are clear. Limited CT section through the upper abdomen are unremarkable. IMPRESSIONS: 1. Bilateral acute pulmonary emboli extending into upper and lower lobes.
[2018-07-28] MEDS ORDERED: HEPARIN SODIUM,PORCINE 5,000 UNIT/ML 1 ML VIAL IV PRN (20:23)
[2018-07-28] MEDS ORDERED: HEPARIN SODIUM,PORCINE 10,000 UNIT/ML 1 ML VIAL IV ONE (20:23)
[2018-07-28] MEDS ORDERED: NALOXONE 0.4 MG/ML 1 ML VIAL IV PRN (20:32)
[2018-07-28] MEDS: SODIUM CHLORIDE 0.9% 1,000 ML IV SCH (21:06)
[2018-07-28] MEDS: HEPARIN SOD,PORK IN 0.45% NACL 25,000 UNIT in 0.45% NACL 1 250ML.BAG IV SCH (21:07)
[2018-07-28 22:12] VITALS: BMI 37.9
[2018-07-28] MEDS ORDERED: FUROSEMIDE 20 MG TAB PO PRN (22:16)
[2018-07-28] MEDS ORDERED: ACETAMINOPHEN TAB 500 MG TAB PO PRN (22:18)
[2018-07-28] MEDS ORDERED: MELATONIN 3 MG TABLET PO PRN (22:29)
[2018-07-28] MEDS: GABAPENTIN 300 MG CAP PO SCH (22:35)
--- NOTE | 2018-07-28 23:03 | HP ---
HISTORY AND PHYSICAL DATE OF ADMISSION: 07/28/2018. DATE OF SERVICE: 07/28/2018. PRESENTING COMPLAINT: Difficulty breathing. HISTORY OF PRESENTING COMPLAINT: A very pleasant 62-year-old patient of Dr. Mir. Chronic stable medical conditions include GERD, hypertension, hyperlipidemia, osteoarthritis, peripheral neuropathy, diverticulosis, and chronic low back pain from L3 to L5 vertebral fracture. Because of his vertebral fracture, patient often times is sitting down and less active. He has chronic lower extremity swelling today in the afternoon. Today in the morning at around 4 o'clock he was finding it difficult to take a deep breath and this prompted him coming down. There was no obvious chest discomfort. No fever. No chills. No cough. The patient had a CT scan that showed bilateral pulmonary embolism. Patient is started on IV heparin. No no prior DVT. The patient's is at the bedside. REVIEW OF SYSTEMS: CONSTITUTIONAL: None. HEENT: None. RESPIRATORY: None. CARDIOVASCULAR: None. GENITOURINARY: None. MUSCULOSKELETAL: Chronic low back pain. DERMATOLOGICAL: None. HEMATOLOGIC: None. LYMPHATIC: None. PSYCHIATRY: None. NEUROLOGICAL: Numbness and tingling in the feet. PAST MEDICAL HISTORY: GERD, hyperlipidemia, hypertension, osteoarthritis, chronic low back pain with injured vertebra, peripheral neuropathy, diverticulosis. PAST SURGICAL HISTORY: Adenoidectomy, breast surgery, cholecystectomy, bilateral leg cyst removed, right shoulder surgery, bilateral knee unicompartment replacement, colonoscopy, vasectomy with reversal, left thumb partial amputation. SOCIAL HISTORY: . Uses a cane. 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 Used to drink socially but stopped in 1997. No smoking. . FAMILY HISTORY: Patient is adopted. HOME MEDICATIONS: 1. Norvasc 5 mg a day. 2. Vitamin B complex 1 capsule p.o. daily. 3. Flomax 0.4 mg p.o. daily. 4. Mirapex 0.5 mg at bedtime. 5. Men's multivitamin 1 tab p.o. daily. 6. Hyzaar 100/25 one tablet p.o. daily. 7. Synthroid 25 mcg a day. 8. Gabapentin 600 mg b.i.d. 9. Lasix 20 mg daily p.r.n. 10.Folic acid 0.4 mg p.o. daily. 11.Fenofibrate 160 mg p.o. daily. 12.Celebrex 200 mg b.i.d. 13.Aspirin 81 mg a day. ALLERGIES: None. PHYSICAL EXAMINATION: Temperature 99.1, pulse 79, respirations 16, blood pressure 145/90, pulse ox 97 percent 2. GENERAL APPEARANCE: Well built, BMI 37.3. Lying in bed. A bit tired-appearing. EYES: Pupils equal. Conjunctivae normal. HEENT: External appearance of nose is normal. Oral cavity normal. NECK: JVD not raised. Mass not palpable. Respiratory effort increased. LUNGS: Slightly decreased breath sounds. CARDIOVASCULAR: 1st and 2nd sounds. Some edema present. ABDOMEN: Distended, soft. Liver and spleen not palpable. LYMPHATIC: No lymph node palpable in the neck or axillae. PSYCHIATRY: Alert, oriented x3. Mood and affect normal. NEUROLOGICAL: Pupils grossly intact. Decreased sensation distally. INVESTIGATIONS: White count 8.9, hemoglobin 14.3, potassium 4.0, BUN 16, creatinine 0.78. D-dimer 1.56. EKG tracing personally reviewed by me, shows right bundle branch block. Chest CT shows upper and lower lobe pulmonary arteries containing thrombus bilaterally. Chest x-ray film personally reviewed by me shows slight cardiomegaly, prominent pulmonary artery. ASSESSMENT: 1. Acute bilateral pulmonary embolism in a patient with decreased activity. 2. Obesity; BMI 37.3. 3. Gastroesophageal reflux disease. 4. Hyperlipidemia. 5. Essential hypertension. 6. Primary osteoarthritis with crushed vertebrae in the lumbar spine. 7. Peripheral neuropathy idiopathic. 8. Colonic diverticulosis. 9. IV heparin monitoring. 10.Hypothyroidism. 11.Restless leg syndrome. 12.Hypertriglyceridemia. PLAN: Patient is started on IV heparin. Home medications will be resumed. Will hold off patient's Celebrex. Get a 2-D echocardiogram in the morning. The patient is resting more comfortably. We will do a Doppler ultrasound of lower extremities. Care was discussed with the patient. Questions were answered. For chronic back pain, Celebrex has been discontinued. We will use Tylenol Extra Strength and also use K-pad. Care was discussed with the patient and at the bedside. Questions were answered. MMODL / IJN: [id number] /
[2018-07-28] MEDS: PRAMIPEXOLE 0.5 MG TAB PO SCH (23:23)
[2018-07-29 02:46] LABS: Basophils % (A) 1 %; Eosinophils # (A) 0.2 k/uL (0-0.7); Eosinophils % (A) 3 %; HCT 41.4 % (39.0-53.0); HGB 13.7 gm/dL (13.0-17.5); Lymphocytes # (A) 1.6 k/uL (1.0-4.8); Lymphocytes % (A) 22 %; MCH 30.2 pg (25.0-35.0); MCHC 33.2 g/dL (31.0-37.0); MCV 90.9 fL (80.0-100.0); Mean Platelet Volume 9.4; Monocytes # (A) 0.5 k/uL (0-1.0); Monocytes % (A) 6 %; Neutrophils # (A) 4.8 k/uL (1.3-7.7); Neutrophils % (A) 65 %; Platelet Count 149 k/uL (150-450); RBC 4.56 m/uL (4.30-5.90); RDW 14.6 % (11.5-15.5); WBC 7.3 k/uL (3.8-10.6)
[2018-07-29 02:56] LABS: Partial Thromboplastin Time 55.7 sec (22.0-30.0)
[2018-07-29 03:37] LABS: Anion Gap 6 mmol/L; Blood Urea Nitrogen 15 mg/dL (9-20); Calcium 9.5 mg/dL (8.4-10.2); Carbon Dioxide 25 mmol/L (22-30); Chloride 113 mmol/L (98-107); Glucose 128 mg/dL (74-99); Potassium 3.3 mmol/L (3.5-5.1); Sodium 144 mmol/L (137-145)
[2018-07-29] MEDS: LEVOTHYROXINE 75 MCG TAB PO SCH (05:58)
--- NOTE | 2018-07-29 08:16 | US ---
EXAMINATION TYPE: US venous doppler duplex LE DATE OF EXAM: 07/29/2018 7:49 AM COMPARISON: CT angio CLINICAL HISTORY: r/o dvt. Pulmonary embolism SIDE PERFORMED: Bilateral TECHNIQUE: The lower extremity deep venous system is examined utilizing real time linear array sonog sanjiv with graded compression, doppler sonography and color-flow sonography. VESSELS IMAGED: Common Femoral Vein Deep Femoral Vein Greater Saphenous Vein * Femoral Vein Popliteal Vein Small Saphenous Vein * Proximal Calf Veins (* superficial vessels) Right Leg: intimal wall thickening is noted Right upper Femoral Vein and in Popliteal Vein, but colo r flow patency is observed within all assessed Deep Veins. There appears to be compressibility of the structures. Left Leg: Intimal wall thickening is noted in Left lower CFV, upper and lower Popliteal Vein, and mo re echogenic wall changes in one of two upper Calf Veins. Color flow patency is present within all as sessed Deep Veins. Proximal calf veins are not completely compressible. IMPRESSION: 1. Findings suggestive for chronic thrombosis within the bilateral lower extremities discussed above. There is incomplete obstruction at these levels.
[2018-07-29] MEDS: FOLIC ACID 1 MG TAB PO SCH (08:56)
[2018-07-29] MEDS: TAMSULOSIN 0.4 MG CAP.ER.24H PO SCH (08:56)
[2018-07-29] MEDS: GABAPENTIN 300 MG CAP PO SCH ×2 (08:56→20:45)
[2018-07-29] MEDS: LOSARTAN-HCTZ 50-12.5 MG 1 EACH TAB PO SCH (08:57)
[2018-07-29] MEDS: HEPARIN SOD,PORK IN 0.45% NACL 25,000 UNIT in 0.45% NACL 1 250ML.BAG IV SCH ×2 (08:57→19:53)
[2018-07-29] MEDS: amLODIPine 5 MG TAB PO SCH (08:57)
[2018-07-29] MEDS: FENOFIBRATE 160 MG TAB PO SCH (08:57)
--- NOTE | 2018-07-29 10:28 | ECHOF ---
Referral Reason:acute PE MEASUREMENTS -------- HEIGHT: 182.9 cm WEIGHT: 119.7 kg BP: RVIDd: 3.4 cm (< 3.3) IVSd: 1.5 cm (0.6 - 1.1) LVIDd: 4.5 cm (3.9 - 5.3) LVPWd: 1.6 cm (0.6 - 1.1) IVSs: 1.8 cm LVIDs: 2.6 cm LVPWs: 2.2 cm LAESV Index (A-L): 20.26 ml/m Ao Diam: 3.0 cm (2.0 - 3.7) LA Diam: 4.5 cm (2.7 - 3.8) MV EXCURSION: 16.898 mm (> 18.000) MV EF SLOPE: 61 mm/s (70 - 150) EPSS: 0.7 cm MV E Jacky: 0.88 m/s MV DecT: 193 ms MV A Jacky: 1.04 m/s MV E/A Ratio: 0.84 RAP: 5.00 mmHg RVSP: 23.73 mmHg FINDINGS -------- Sinus rhythm. This was a technically good study. The left ventricular size is normal. There is moderate concentric left ventricular hypertrophy. O verall left ventricular systolic function is normal with, an EF between 55 - 60 %. The right ventricle is mildly enlarged. Normal LA size by volume 22+/-6 ml/m2. The right atrium is normal in size. The aortic valve was not well visualized. Mild mitral annular calcification present. There is trace mitral regurgitation. Mild tricuspid regurgitation present. The right ventricular systolic pressure, as measured by Doppl er, is 23.73mmHg. The pulmonic valve was not well visualized. The aortic root size is normal. Normal inferior vena cava with normal inspiratory collapse consistent with estimated right atrial pre ssure of 5 mmHg. The pericardium is normal. CONCLUSIONS -------- 1. Sinus rhythm. 2. This was a technically good study. 3. The left ventricular size is normal. 4. There is moderate concentric left ventricular hypertrophy. 5. Overall left ventricular systolic function is normal with, an EF between 55 - 60 %. 6. The right ventricle is mildly enlarged. 7. Normal LA size by volume 22+/-6 ml/m2. 8. The right atrium is normal in size. 9. The aortic valve was not well visualized. 10. Mild mitral annular calcification present. 11. There is trace mitral regurgitation. 12. Mild tricuspid regurgitation present. 13. The right ventricular systolic pressure, as measured by Doppler, is 23.73mmHg. 14. The pulmonic valve was not well visualized. 15. The aortic root size is normal. 16. Normal inferior vena cava with normal inspiratory collapse consistent with estimated right atrial pressure of 5 mmHg. 17. The pericardium is normal. G[employer] SERVICER: Jessica Kaufman RDCS
--- NOTE | 2018-07-29 16:45 | PN ---
PROGRESS NOTE DATE OF SERVICE: July 29, 2018. PRESENTING COMPLAINT: Short of breath. INTERVAL HISTORY: This patient admitted with bilateral pulmonary embolism, who is pretty much who has decreased activity from his chronic low back pain. On IV heparin. Short of breath a shade better. Sitting up. Did tolerate some diet. Is on IV heparin. REVIEW OF SYSTEMS: Done for constitutional, cardiovascular, GI, pulmonary and relevant findings as above. CURRENT MEDICATIONS: Reviewed that include IV heparin. PHYSICAL EXAMINATION: VITAL SIGNS: Temperature 98.7, pulse 79, respiratory 20, blood pressure 115/78, pulse ox 96% on 3 L. GENERAL APPEARANCE: Sitting up, tired. EYES: Pupils equal. Conjunctivae normal. NECK: JVD not raised. Mass not palpable. RESPIRATORY: Effort increased. LUNGS: Slightly decreased breath sounds. CARDIOVASCULAR: 1st and 2nd sounds normal. Some edema. ABDOMEN: Soft, nontender. Liver and spleen not palpable. PSYCHIATRY: Alert and oriented x3. Mood and affect normal. INVESTIGATIONS: White count 7.3, hemoglobin 13.7, potassium 3.3. BUN and creatinine is normal. Venous Doppler both lower extremities showing chronic DVT in both legs. 2D echocardiogram shows some enlargement of the right ventricle. ASSESSMENT: 1. Acute bilateral pulmonary embolism with some right ventricle strain, slow to respond. Patient is still short of breath. 2. Obesity; BMI 37.3. 3. IV heparin monitoring. 4. Gastroesophageal reflux disease. 5. Hyperlipidemia. 6. Essential hypertension. 7. Primary osteoarthritis with the lumbar spine. 8. Peripheral neuropathy idiopathic. 9. Colonic diverticulosis. 10.Hypothyroidism. 11.Restless legs syndrome. 12.Hypertriglyceridemia. 13.IV heparin monitoring. PLAN: Continue patient on IV heparin for another 24 hours. Patient should be able to be switched over to Eliquis tomorrow if respiration is better. For his chronic low back pain, using a heating pad and Tylenol. Care was discussed with the patient and at the bedside. Questions were answered. Also follow with Pulmonary. MMODL / IJN: [id number] /
--- NOTE | 2018-07-29 17:32 | P.CNPUL ---
History of Present Illness Consult date: 07/29/18 Requesting physician: Yg Arana Reason for consult: dyspnea, chest pain Chief complaint: Bilateral pulmonary embolisms History of present illness: This is a 68-year-old white male patient of Dr. Mir, with past medical history of hypertension, hyperlipidemia, osteoarthritis, GERD/reflux, chronic lower back pain, neuropathy in bilateral legs, diverticulosis, who presented to the emergency department on 07/28/2018 with complaints of acute onset of shortness of breath and left-sided chest pain. He states his symptoms started at 4:00 in the morning on 07/28/2018, patient described the chest discomfort as pressure, intermittent, lasting 15-20 seconds, with no radiation, no pleurisy. Patient had the sensation that she couldn't breathe out, felt short of breath. No lightheadedness no dizziness, no loss of consciousness, no fever no chills. No hemoptysis. Chest x-ray showed no acute pulmonary process. D-dimer was elevated at 1.56, CT angios chest bilateral acute pulmonary emboli extending into the upper and lower lobes. There was no septal wall deviation evident, no reflux into the inferior vena cava, notes significant right heart strain. Doppler ultrasounds of the lower extremities showed chronic thrombosis within the bilateral lower extremities. Echocardiogram showed reserved left ventricular systolic function with an EF of 55-60%, there was trace mitral regurg, trace tricuspid regurg, no pulmonary hypertension, with right ventricular systolic pressure of 23 mmHg. Normal inferior vena cava with normal inspiratory collapse consistent with estimated right atrial pressure of 5 mmHg. patient denies any history of DVTs or PEs in the past, he is not on any blood thinners, he does have a quite sedentary lifestyle related to history of chronic back pain. Lab work was negative for any leukocytosis, hemoglobin was 14.3, electrolytes were unremarkable on admission, on today's labs potassium is 3.3, no profile within normal limits, troponin was negative 1, proBNP was normal limits at 60. He was started on heparin infusion. Currently on 3 L per nasal cannula his pulse ox is 96%, afebrile, lung sounds are clear, EKG shows sinus rhythm with first-degree AV block and right bundle branch block. Review of Systems All systems: negative Constitutional: Denies chills, Denies fever Eyes: denies blurred vision, denies pain Ears, nose, mouth and throat: Denies headache, Denies sore throat Cardiovascular: Denies chest pain, Denies shortness of breath Respiratory: Reports dyspnea, Denies cough Gastrointestinal: Denies abdominal pain, Denies diarrhea, Denies nausea, Denies vomiting Musculoskeletal: Denies myalgias Integumentary: Denies pruritus, Denies rash Neurological: Denies numbness, Denies weakness Psychiatric: Denies anxiety, Denies depression Endocrine: Denies fatigue, Denies weight change Past Medical History Past Medical History: Chest Pain / Angina, GERD/Reflux, Hyperlipidemia, Hypertension, Osteoarthritis (OA), Pneumonia, Pulmonary Embolus (PE), Thyroid Disorder Additional Past Medical History / Comment(s): . generalized arthritis,chronic lower backpain, DJD, neuropathy bilateral legs, diverticulosis,. PE (diagnosed 07/28/2018), restless leg syndrome History of Any Multi-Drug Resistant Organisms: None Reported Past Surgical History: Adenoidectomy, Breast Surgery, Cholecystectomy, Heart Catheterization, Joint Replacement, Orthopedic Surgery, Tonsillectomy Additional Past Surgical History / Comment(s): L breast benign lumpectomy, bilateral legs cysts removed, R shoulder surgery -supraspinatus, bilateral knees unicompartmental replacements, colonoscopy, vasectomy with reversal.lt thumb partial amputaion. orchiectomy (04/2016) Past Anesthesia/Blood Transfusion Reactions: No Reported Reaction Past Psychological History: No Psychological Hx Reported Additional Psychological History / Comment(s): Pt resides with his spouse. He uses straight cane. 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 Smoking Status: Never smoker Past Alcohol Use History: None Reported Additional Past Alcohol Use History / Comment(s): Pt used to drink socially but has not drank alcohol since April 1998. Past Drug Use History: None Reported - Past Family History Father Family Medical History: Unable to Obtain Additional Family Medical History / Comment(s): Pt adopted and does not know family history. Medications and Allergies Home Medications Medication Instructions Recorded Confirmed Type Aspirin 81 mg PO QAM 07/19/15 07/28/18 History Folic Acid 0.4 mg PO QAM 07/19/15 07/28/18 History Multivitamin [Men's Multi-Vitamin] 1 tab PO QAM 07/19/15 07/28/18 History Pramipexole Di-HCl [Mirapex] 0.5 mg PO HS 07/19/15 07/28/18 History Vitamin B Complex 1 cap PO QAM 07/19/15 07/28/18 History amLODIPine [Norvasc] 5 mg PO QAM 07/19/15 07/28/18 History Fenofibrate Nanocrystallized 160 mg PO QAM 05/17/16 07/28/18 History [Triglide] Levothyroxine Sodium [Synthroid] 75 mcg PO QAM 10/11/17 07/28/18 History Tamsulosin HCl [Flomax] 0.4 mg PO QAM 10/11/17 07/28/18 History Celecoxib [CeleBREX] 200 mg PO BID 07/28/18 07/28/18 History Furosemide [Lasix] 20 mg PO DAILY PRN 07/28/18 07/28/18 History Gabapentin 600 mg PO BID 07/28/18 07/28/18 History Losartan/Hydrochlorothiazide 1 tab PO DAILY 07/28/18 07/28/18 History [Hyzaar 100-25 Tablet] Allergies Allergy/AdvReac Type Severity Reaction Status Date / Time No Known Allergies Allergy Verified 07/28/18 18:37 Physical Exam Vitals: Vital Signs Temp Pulse Pulse Resp BP BP Pulse Ox 07/29/18 13:11 98.7 F 79 20 151/78 96 07/29/18 11:07 16 07/29/18 08:00 81 16 153/89 96 07/29/18 03:46 75 18 07/29/18 03:44 97.8 F 75 18 151/80 94 L 07/28/18 23:55 81 18 07/28/18 23:53 98.2 F 81 18 147/75 93 L 07/28/18 22:06 98.2 F 80 17 154/83 98 07/28/18 21:00 80 18 151/89 96 07/28/18 20:13 99.1 F 79 16 145/90 97 07/28/18 18:37 82 18 156/99 97 Intake and Output 07/29/18 07/29/18 07/29/18 06:59 14:59 22:59 Intake Total 604.491 725.509 Output Total 400 Balance 204.491 725.509 Intake: Intake, IV Titration 204.491 125.509 Amount Heparin Sod,Pork in 0.45% 124.491 125.509 NaCl 25,000 unit In 0.45 % NaCl 1 250ml.bag @ 18 UNITS/KG/HR 21.22 mls/hr IV .[id number] [facility]IGUE Rx#: [id number] Sodium Chloride 0.9% 1, 80 000 ml @ 10 mls/hr IV . Q24H [facility]IGUE Rx#:[id number] Oral 400 600 Output: Urine 400 Other: Voiding Method Urinal Urinal Urinal # Voids 1 1 # Bowel Movements 1 Weight 120.1 kg GENERAL EXAM: Alert, pleasant, 68-year-old white male comfortable in no apparent distress. HEAD: Normocephalic/atraumatic. EYES: Normal reaction of pupils, equal size. Conjunctiva pink, sclera white. NOSE: Clear with pink turbinates. THROAT: No erythema or exudates. NECK: No masses, no JVD, no thyroid enlargement, no adenopathy. CHEST: No chest wall deformity. Symmetrical expansion. LUNGS: Equal air entry with no crackles, wheeze, rhonchi or dullness. CVS: Regular rate and rhythm, normal S1 and S2, no gallops, no murmurs, no rubs ABDOMEN: Soft, nontender. No hepatosplenomegaly, normal bowel sounds, no guarding or rigidity. EXTREMITIES: No clubbing, no edema, no cyanosis, 2+ pulses and upper and lower extremities. MUSCULOSKELETAL: Muscle strength and tone normal. SPINE: No scoliosis or deformity SKIN: No rashes CENTRAL NERVOUS SYSTEM: Alert and oriented -3. No focal deficits, tone is normal in all 4 extremities. PSYCHIATRIC: Alert and oriented -3. Appropriate affect. Intact judgment and insight. Results - Laboratory Findings CBC and BMP: 07/29/18 02:18 07/29/18 02:18 PT/INR, D-dimer PT 11.0 sec (9.0-12.0) 07/29/18 02:18 INR 1.0 (<1.2) 07/29/18 02:18 D-Dimer 1.56 mg/L FEU (<0.60) H 07/28/18 16:56 Abnormal lab findings: Abnormal Labs 07/28/18 07/28/18 07/28/18 16:56 16:56 16:56 Plt Count APTT D-Dimer 1.56 H Potassium Chloride 111 H Glucose 140 H Calcium 10.4 H Alkaline Phosphatase 34 L Total Creatine Kinase 54 L Total Protein 6.0 L 07/29/18 07/29/18 07/29/18 02:18 02:18 02:18 Plt Count 149 L APTT 55.7 H D-Dimer Potassium 3.3 L Chloride 113 H Glucose 128 H Calcium Alkaline Phosphatase Total Creatine Kinase Total Protein - Diagnostic Findings Chest x-ray: report reviewed, image reviewed CT scan - chest: report reviewed, image reviewed Additional studies: EKG reviewed Assessment and Plan Plan: Assessment: #1. Acute bilateral pulmonary embolisms extending into upper and lower lobes, without evidence of right heart strain #2. Chest pain, shortness of breath related to the above #3. Chronic lower extremity DVTs, as noted on the Doppler ultrasounds of the lower extremities #4. 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 Sedentary lifestyle #6. Hypertension, hyperlipidemia, GERD, osteoarthritis, diverticulosis #7. Lifelong nonsmoker Plan: Continue IV heparin infusion. CT angios of the chest, chest x-ray was reviewed. Patient is maintaining good oxygenation, no evidence of right-sided heart strain although this CT angios showed an extensive pulmonary embolisms, more so on the right side. Patient will need lifelong anticoagulation you of his chronic sedentary lifestyle, and chronic lower extremity DVTs. He is being evaluated for coverage for the Xarelto or Eliquis, if patient is not covered then she will have to go on Coumadin. We'll continue to follow I performed a history & physical examination of the patient and discussed their management with my nurse practitioner, Stacie Brewer. I reviewed the nurse practitioner's note and agree with the documented findings and plan of care. Lung sounds are positive for clear breath sounds. The findings and the impression was discussed with the patient. I attest to the documentation by the nurse practitioner. Time with Patient: Greater than 30
[2018-07-29] MEDS: SODIUM CHLORIDE 0.9% 1,000 ML IV SCH (20:13)
[2018-07-29] MEDS ORDERED: MELATONIN 5 MG TABLET PO PRN (20:13)
[2018-07-29] MEDS: PRAMIPEXOLE 0.5 MG TAB PO SCH (20:46)
[2018-07-30 04:03] VITALS: TEMP 98.3
[2018-07-30] MEDS: LEVOTHYROXINE 75 MCG TAB PO SCH (05:52)
[2018-07-30 06:01] LABS: Basophils % (A) 1 %; Eosinophils # (A) 0.2 k/uL (0-0.7); Eosinophils % (A) 3 %; HCT 42.6 % (39.0-53.0); Lymphocytes # (A) 1.7 k/uL (1.0-4.8); Lymphocytes % (A) 21 %; MCH 30.1 pg (25.0-35.0); MCHC 32.9 g/dL (31.0-37.0); MCV 91.5 fL (80.0-100.0); Mean Platelet Volume 8.6; Monocytes # (A) 0.4 k/uL (0-1.0); Monocytes % (A) 5 %; Neutrophils # (A) 5.3 k/uL (1.3-7.7); Neutrophils % (A) 67 %; Platelet Count 166 k/uL (150-450); RBC 4.66 m/uL (4.30-5.90); RDW 14.6 % (11.5-15.5); WBC 7.8 k/uL (3.8-10.6)
[2018-07-30 06:44] LABS: Anion Gap 7 mmol/L; Blood Urea Nitrogen 15 mg/dL (9-20); Calcium 9.6 mg/dL (8.4-10.2); Carbon Dioxide 26 mmol/L (22-30); Chloride 111 mmol/L (98-107); Glucose 119 mg/dL (74-99); Potassium 3.2 mmol/L (3.5-5.1); Sodium 144 mmol/L (137-145)
[2018-07-30 07:36] LABS: Prothrombin Time 10.6 sec (9.0-12.0)
[2018-07-30] MEDS: GABAPENTIN 300 MG CAP PO SCH (08:37)
[2018-07-30] MEDS: LOSARTAN-HCTZ 50-12.5 MG 1 EACH TAB PO SCH (08:37)
[2018-07-30] MEDS: FOLIC ACID 1 MG TAB PO SCH (08:37)
[2018-07-30] MEDS: FENOFIBRATE 160 MG TAB PO SCH (08:38)
[2018-07-30] MEDS: amLODIPine 5 MG TAB PO SCH (08:38)
[2018-07-30] MEDS: TAMSULOSIN 0.4 MG CAP.ER.24H PO SCH (08:38)
[2018-07-30 08:42] VITALS: BP 153/73; PULSE 95; RESP 16
[2018-07-30] MEDS ORDERED: RIVAROXABAN 15 MG TAB PO SCH (10:45)
[2018-07-30] MEDS ORDERED: POTASSIUM CHLORIDE ER 20 MEQ TAB.ER PO STA (12:01)
--- NOTE | 2018-07-30 12:08 | P.DS ---
Providers Date of admission: 07/28/18 20:33 Attending physician: Yg Arana Consults: 07/28/18 20:33 Consult Physician Urgent Consulting Provider: Troy Virgen Consult Reason/Comments: Pulmonary embolus Do you want consulting provider notified?: Yes Primary care physician: [facility] Course: 68-year-old admitted the for bilateral pulmonary embolism patient appears to have extensive PE. If patient is saturating well upon ablation patient will be discharged on Xeralto 10 mg twice a day for 21 days followed by 20 mg with supper. Patient is otherwise clinically doing well and the patient is on Lasix as well as hydrocodone thiazide hydrochlorothiazide will be discontinued amlodipine dose will be increased because of his blood pressure is low and the potassium supplementation pills were prescribed as well as his potassium is low. Dr. Arana evaluated the patient yesterday and pulmonary valid the patient patient apparently doesn't have any right ventricular strain echocardiogram is within normal limits pulmonary is recommending lifelong anticoagulations because of his chronic lower extremity DVTs in the past and chronic sedentary lifestyle. PHYSICAL EXAMINATION: GENERAL: The patient is alert and oriented x3, not in any acute distress. Well developed, well nourished. HEENT: Pupils are round and equally reacting to light. EOMI. No scleral icterus. No conjunctival pallor. Normocephalic, atraumatic. No pharyngeal erythema. No thyromegaly. CARDIOVASCULAR: S1 and S2 present. No murmurs, rubs, or gallops. PULMONARY: Chest is clear to auscultation, no wheezing or crackles. ABDOMEN: Soft, nontender, nondistended, normoactive bowel sounds. No palpable organomegaly. MUSCULOSKELETAL: No joint swelling or deformity. EXTREMITIES: No cyanosis, clubbing, or pedal edema. NEUROLOGICAL: Gross neurological examination did not reveal any focal deficits. SKIN: No rashes. Her other chronic medical problems as physician course please refer to progress note from from yesterday Plan - Discharge Summary New Discharge Prescriptions: No Action Aspirin 81 mg PO QAM amLODIPine [Norvasc] 5 mg PO QAM Folic Acid 0.4 mg PO QAM Multivitamin [Men's Multi-Vitamin] 1 tab PO QAM Pramipexole Di-HCl [Mirapex] 0.5 mg PO HS Vitamin B Complex 1 cap PO QAM Fenofibrate Nanocrystallized [Triglide] 160 mg PO QAM Levothyroxine Sodium [Synthroid] 75 mcg PO QAM Tamsulosin HCl [Flomax] 0.4 mg PO QAM Celecoxib [CeleBREX] 200 mg PO BID Gabapentin 600 mg PO BID Furosemide [Lasix] 20 mg PO DAILY PRN PRN Reason: Edema Losartan/Hydrochlorothiazide [Hyzaar 100-25 Tablet] 1 tab PO DAILY Discharge Medication List Aspirin 81 mg PO QAM 07/19/15 [History] Folic Acid 0.4 mg PO QAM 07/19/15 [History] Multivitamin [Men's Multi-Vitamin] 1 tab PO QAM 07/19/15 [History] Pramipexole Di-HCl [Mirapex] 0.5 mg PO HS 07/19/15 [History] Vitamin B Complex 1 cap PO QAM 07/19/15 [History] amLODIPine [Norvasc] 5 mg PO QAM 07/19/15 [History] Fenofibrate Nanocrystallized [Triglide] 160 mg PO QAM 05/17/16 [History] Levothyroxine Sodium [Synthroid] 75 mcg PO QAM 10/11/17 [History] Tamsulosin HCl [Flomax] 0.4 mg PO QAM 10/11/17 [History] Celecoxib [CeleBREX] 200 mg PO BID 07/28/18 [History] Furosemide [Lasix] 20 mg PO DAILY PRN 07/28/18 [History] Gabapentin 600 mg PO BID 07/28/18 [History] Losartan/Hydrochlorothiazide [Hyzaar 100-25 Tablet] 1 tab PO DAILY 07/28/18 [ History] Follow up Appointment(s)/Referral(s): Nicolás Mir MD [Primary Care Provider] - 08/08/18 11:40 am () Activity/Diet/Wound Care/Special Instructions: Pts 30 day copay for Eliquis or Xarelto is $28
--- NOTE | 2018-07-30 15:40 | P.PN ---
Subjective Progress Note Date: 07/30/18 Principal diagnosis: Acute bilateral pulmonary embolism 6 extending into the upper and lower lobes without evidence of right heart strain This is a 68-year-old white male patient of Dr. Mir, with past medical history of hypertension, hyperlipidemia, osteoarthritis, GERD/reflux, chronic lower back pain, neuropathy in bilateral legs, diverticulosis, who presented to the emergency department on 07/28/2018 with complaints of acute onset of shortness of breath and left-sided chest pain. He states his symptoms started at 4:00 in the morning on 07/28/2018, patient described the chest discomfort as pressure, intermittent, lasting 15-20 seconds, with no radiation, no pleurisy. Patient had the sensation that she couldn't breathe out, felt short of breath. No lightheadedness no dizziness, no loss of consciousness, no fever no chills. No hemoptysis. Chest x-ray showed no acute pulmonary process. D-dimer was elevated at 1.56, CT angios chest bilateral acute pulmonary emboli extending into the upper and lower lobes. There was no septal wall deviation evident, no reflux into the inferior vena cava, notes significant right heart strain. Doppler ultrasounds of the lower extremities showed chronic thrombosis within the bilateral lower extremities. Echocardiogram showed reserved left ventricular systolic function with an EF of 55-60%, there was trace mitral regurg, trace tricuspid regurg, no pulmonary hypertension, with right ventricular systolic pressure of 23 mmHg. Normal inferior vena cava with normal inspiratory collapse consistent with estimated right atrial pressure of 5 mmHg. patient denies any history of DVTs or PEs in the past, he is not on any blood thinners, he does have a quite sedentary lifestyle related to history of chronic back pain. Lab work was negative for any leukocytosis, hemoglobin was 14.3, electrolytes were unremarkable on admission, on today's labs potassium is 3.3, no profile within normal limits, troponin was negative 1, proBNP was normal limits at 60. He was started on heparin infusion. Currently on 3 L per nasal cannula his pulse ox is 96%, afebrile, lung sounds are clear, EKG shows sinus rhythm with first-degree AV block and right bundle branch block. On 07/30/2018 patient seen in follow-up on selective care unit, he sitting up in the chair, in no acute distress, denies any chest pain, vital signs are stable, he is on room air his pulse ox is 97%, afebrile, patient has been up ambulating, tolerating activity well. We checked the patient's coverage and she is approved for Xarelto or Eliquis, initial month 3, and $28 per month thereafter. Patient was started on oral Xarelto, will discontinue heparin drip today. No acute events overnight. Objective - Vital Signs Vital signs: Vital Signs Temp 98.3 F 07/30/18 03:57 Pulse 95 07/30/18 08:00 Resp 16 07/30/18 08:00 BP 153/73 07/30/18 08:00 Pulse Ox 97 07/30/18 08:00 Intake & Output 07/29/18 07/30/18 07/30/18 18:59 06:59 18:59 Intake Total 1205.509 732.005 480 Output Total 200 400 Balance 1005.509 732.005 80 Weight 120.6 kg Intake: IV 500 Heparin Sod,Pork in 0.45% 340 NaCl 25,000 unit In 0.45 % NaCl 1 250ml.bag @ 18 UNITS/KG/HR 21.22 mls/hr IV .[id number] [facility]IGUE Rx#: [id number] Sodium Chloride 0.9% 1, 160 000 ml @ 10 mls/hr IV . Q24H MIGUE Rx#:[id number] Intake, IV Titration 125.509 232.005 Amount Heparin Sod,Pork in 0.45% 125.509 232.005 NaCl 25,000 unit In 0.45 % NaCl 1 250ml.bag @ 18 UNITS/KG/HR 21.22 mls/hr IV .[id number] MIGUE Rx#: [id number] Oral 1080 480 Output: Urine 200 400 Other: Voiding Method Urinal Urinal Urinal # Voids 1 1 # Bowel Movements 1 - Exam GENERAL EXAM: Alert, pleasant, 68-year-old white male comfortable in no apparent distress. HEAD: Normocephalic/atraumatic. EYES: Normal reaction of pupils, equal size. Conjunctiva pink, sclera white. NOSE: Clear with pink turbinates. THROAT: No erythema or exudates. NECK: No masses, no JVD, no thyroid enlargement, no adenopathy. CHEST: No chest wall deformity. Symmetrical expansion. LUNGS: Equal air entry with no crackles, wheeze, rhonchi or dullness. CVS: Regular rate and rhythm, normal S1 and S2, no gallops, no murmurs, no rubs ABDOMEN: Soft, nontender. No hepatosplenomegaly, normal bowel sounds, no guarding or rigidity. EXTREMITIES: No clubbing, no edema, no cyanosis, 2+ pulses and upper and lower extremities. MUSCULOSKELETAL: Muscle strength and tone normal. SPINE: No scoliosis or deformity SKIN: No rashes CENTRAL NERVOUS SYSTEM: Alert and oriented -3. No focal deficits, tone is normal in all 4 extremities. PSYCHIATRIC: Alert and oriented -3. Appropriate affect. Intact judgment and insight. - Labs CBC & Chem 7: 07/30/18 05:11 07/30/18 05:11 Labs: Abnormal Lab Results - Last 24 Hours (Table) 07/30/18 07/30/18 Range/Units 05:11 07:17 APTT 53.3 H (22.0-30.0) sec Potassium 3.2 L (3.5-5.1) mmol/L Chloride 111 H (98-107) mmol/L Glucose 119 H (74-99) mg/dL Assessment and Plan Plan: Assessment: #1. Acute bilateral pulmonary embolisms extending into upper and lower lobes, without evidence of right heart strain #2. Chest pain, shortness of breath related to the above #3. Chronic lower extremity DVTs, as noted on the Doppler ultrasounds of the lower extremities #4. 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 Sedentary lifestyle #6. Hypertension, hyperlipidemia, GERD, osteoarthritis, diverticulosis #7. Lifelong nonsmoker Plan: Patient has been approved for Xarelto, start first dose today, discontinue heparin an hour later. Vital signs are stable, patient is maintaining stable oxygenation on room air, no complaints of chest pain, no lightheadedness no dizziness, no hemoptysis. Patient has been tolerating ambulation. From perspective stable for discharge home today. Patient has a upcoming trip via airtravel, he is okay to travel, as long as he is on anticoagulation, but he is counseled against any strenuous activity. Follow up with Dr. Leo gorman office in one week I performed a history & physical examination of the patient and discussed their management with my nurse practitioner, Stacie Brewer. I reviewed the nurse practitioner's note and agree with the documented findings and plan of care. Lung sounds are positive for clear breath sounds. The findings and the impression was discussed with the patient. I attest to the documentation by the nurse practitioner. Time with Patient: Less than 30
== END 2018-07-30 16:48 | disposition home or self-care (01) ==
LOC: EC 16:27 → 3SCARD 20:33
PROVIDERS: ADMIT Hospitalist; ATTEND Hospitalist
DX: I26.99 Other pulmonary embolism without acute cor pulmonale (principal); I82.503 Chronic embolism and thrombosis of unspecified deep veins of lower extremity, bilateral; G89.29 Other chronic pain; M54.5 Low back pain; K21.9 Gastro-esophageal reflux disease without esophagitis; E78.5 Hyperlipidemia, unspecified; I10 Essential (primary) hypertension; G62.9 Polyneuropathy, unspecified; M47.9 Spondylosis, unspecified; E03.9 Hypothyroidism, unspecified; G25.81 Restless legs syndrome; E78.1 Pure hyperglyceridemia; K57.30 Diverticulosis of large intestine without perforation or abscess without bleeding; G57.90 Unspecified mononeuropathy of unspecified lower limb; R03.1 Nonspecific low blood-pressure reading; E87.6 Hypokalemia; Z79.82 Long term (current) use of aspirin; Z79.890 Hormone replacement therapy; Z79.899 Other long term (current) drug therapy; Z87.01 Personal history of pneumonia (recurrent); Z86.711 Personal history of pulmonary embolism; Z90.49 Acquired absence of other specified parts of digestive tract; Z89.012 Acquired absence of left thumb; Z68.37 Body mass index [BMI] 37.0-37.9, adult; E66.9 Obesity, unspecified
CPT/HCPCS: 96376 ×2; 96366 ×2; 96365; 99291; 36415; 93005; 93306; 85379; 83880; 80053; 80048 ×2; 82550; 82553; 84484; 85025 ×3; 85610 ×3; 85730 ×3; 71046; 93970; 71275; G0378 ×3; J1644 ×3; Q9967

== ENCOUNTER → 2018-12-23 | Day surgery (SDC) | payer MEDICARE, OTHER ==
[2018-12-17 14:10] VITALS: BMI 38.4
[~2018-12-23] MED LIST: LACTATED RINGERS 1,000 ML IV ONE; LACTATED RINGERS 1,000 ML IV SCH; LIDOCAINE 1% 20 ML VIAL (10MG/ML) FOR IV START INTRADERMA ONE; LIDOCAINE 1% 20 ML VIAL (10MG/ML) FOR IV START INTRADERMA PRN; PROPOFOL 10 MG/ML 20 ML VIAL IV ONE
[2018-12-23 13:00] VITALS: TEMP 97.8
[2018-12-23 13:59] VITALS: RESP 16
--- NOTE | 2018-12-23 14:04 | P.GSHP ---
History of Present Illness H&P Date: 12/23/18 CHIEF COMPLAINT: Colon screen HISTORY OF PRESENT ILLNESS: The patient is a 68-year-old male who presents for colon screen. Lower endoscopy was offered for further evaluation and management. PAST MEDICAL HISTORY: Please see list. PAST SURGICAL HISTORY: Please see list. MEDICATIONS: Please see list. ALLERGIES: Please see list. SOCIAL HISTORY: No illicit drug use FAMILY HISTORY: No reports of Crohn disease or ulcerative colitis. REVIEW OF ORGAN SYSTEMS: CONSTITUTIONAL: No reports of fevers or chills. PHYSICAL EXAM: VITAL SIGNS: Stable GENERAL: Well-developed pleasant in no acute distress. HEENT: No scleral icterus. Extraocular movements grossly intact. Moist buccal mucosa. NECK: Supple without lymphadenopathy. CHEST: Unlabored respirations. Equal bilateral excursions. CARDIOVASCULAR: Regular rate and rhythm. Distal 2+ pulses. ABDOMEN: Soft, nontender, nondistended. MUSCULOSKELETAL: No clubbing, cyanosis, or edema. ASSESSMENT: 1. Colon screen. PLAN: 1. Recommend proceeding with a lower endoscopy Past Medical History Past Medical History: Chest Pain / Angina, GERD/Reflux, Hyperlipidemia, Hypertension, Osteoarthritis (OA), Pneumonia, Pulmonary Embolus (PE), Sleep Apnea/CPAP/BIPAP, Thyroid Disorder Additional Past Medical History / Comment(s): chronic lower backpain, DJD, neuropathy bilateral legs, diverticulosis,. PE (diagnosed 07/28/2018), restless leg syndrome, no cpap used, History of Any Multi-Drug Resistant Organisms: None Reported Past Surgical History: Adenoidectomy, Breast Surgery, Cholecystectomy, Heart Catheterization, Joint Replacement, Orthopedic Surgery, Tonsillectomy Additional Past Surgical History / Comment(s): L breast benign lumpectomy, 2 lumpectomy left leg, R shoulder surgery -supraspinatus, bilateral knees unicompartmental replacements, colonoscopy, vasectomy with reversal.left thumb partial amputaion, orchiectomy (04/2016) Past Anesthesia/Blood Transfusion Reactions: No Reported Reaction, Unable to Obtain Additional Past Anesthesia/Blood Transfusion Reaction / Comment(s): adopted-no family hx Smoking Status: Never smoker - Past Family History Father Family Medical History: Unable to Obtain Additional Family Medical History / Comment(s): Pt adopted and does not know family history. Medications and Allergies Home Medications Medication Instructions Recorded Confirmed Type Folic Acid 0.4 mg PO QAM 07/19/15 12/17/18 History Multivitamin [Men's Multi-Vitamin] 1 tab PO QAM 07/19/15 12/17/18 History Pramipexole Di-HCl [Mirapex] 0.5 mg PO HS 07/19/15 12/17/18 History Fenofibrate Nanocrystallized 160 mg PO QAM 05/17/16 12/17/18 History [Triglide] Levothyroxine Sodium [Synthroid] 75 mcg PO QAM 10/11/17 12/17/18 History Tamsulosin HCl [Flomax] 0.4 mg PO QAM 10/11/17 12/17/18 History Celecoxib [CeleBREX] 200 mg PO BID 07/28/18 12/17/18 History Furosemide [Lasix] 20 mg PO DAILY 07/28/18 12/17/18 History Gabapentin 600 mg PO BID 07/28/18 12/17/18 History Losartan [Cozaar] 100 mg PO DAILY #30 tab 07/30/18 12/17/18 Rx Potassium Chloride ER [K-Dur 20] 20 meq PO DAILY #30 tab 07/30/18 12/17/18 Rx amLODIPine [Norvasc] 10 mg PO QAM #30 07/30/18 12/17/18 Rx Omeprazole 20 mg PO DAILY 12/17/18 12/17/18 History Rivaroxaban [Xarelto] 20 mg PO DAILY 12/17/18 12/17/18 History Allergies Allergy/AdvReac Type Severity Reaction Status Date / Time No Known Allergies Allergy Verified 12/17/18 13:54 Surgical - Exam Vital Signs Temp Pulse Resp BP Pulse Ox 97.8 F 63 18 188/92 95 12/23/18 12:59 12/23/18 12:59 12/23/18 12:59 12/23/18 12:59 12/23/18 12:59
--- NOTE | 2018-12-23 14:09 | P.OP ---
Date of Procedure: 12/23/18 Description of Procedure: PREOPERATIVE DIAGNOSIS: Personal history of high-risk colon polyps POSTOPERATIVE DIAGNOSIS: Personal history of high-risk colon polyps Ascending colon tubular adenomas Pandiverticulosis OPERATION: Colonoscopy to the ileocecal valve and appendiceal orifice. Colonoscopy with multiple hot snare polypectomies SURGEON: Eva Morrison MD. ANESTHESIA: MAC. INDICATIONS: The patient is a 68-year-old male who presents for with history of high-risk colon polyps. Last colonoscopy in 3 years. Benefits and risks were described and informed consent was obtained. DESCRIPTION OF PROCEDURE: The patient had undergone GoLytely prep. He had been brought into the operating room and laid in the left lateral decubitus position. After adequate intravenous sedation, the rectum was examined with 2% lidocaine jelly. No external hemorrhoids were encountered. The rectal tone was within normal limits. No lesions were palpated in the rectal vault. An Olympus colonoscope was advanced until the ileocecal valve and appendiceal orifice were clearly viewed. The prep was fair with visualization of the mucosal folds. Scattered diverticulosis was encountered. Ascending colonic polyps were found and snare polypectomy. No evidence of focal colitis was found. Retroflexion of the scope demonstrated grade 1 internal hemorrhoids without active bleeding or inflammation. The colon was desufflated. The patient had tolerated the procedure well. Withdrawal time was over 6 minutes. FINDINGS: Aronchick preparation quality scale 2 (1-5) No internal hemorrhoids No external hemorrhoids No arteriovenous malformations. Pandiverticulosis Removal of 2 polyps: - Snare polypectomy proximal ascending colon, 15 mm tubulovillous adenoma polyp. - Snare polypectomy distal ascending colon, 8 mm flat villous adenoma polyp. No focal colitis. RECOMMENDATIONS: Given severity of tubular adenomas, recommend repeat colonoscopy 1 year. Plan - Discharge Summary Discharge Rx Participant: No New Discharge Prescriptions: No Action Folic Acid 0.4 mg PO QAM Multivitamin [Men's Multi-Vitamin] 1 tab PO QAM Pramipexole Di-HCl [Mirapex] 0.5 mg PO HS Fenofibrate Nanocrystallized [Triglide] 160 mg PO QAM Levothyroxine Sodium [Synthroid] 75 mcg PO QAM Tamsulosin HCl [Flomax] 0.4 mg PO QAM Celecoxib [CeleBREX] 200 mg PO BID Gabapentin 600 mg PO BID Furosemide [Lasix] 20 mg PO DAILY Losartan [Cozaar] 100 mg PO DAILY #30 tab Potassium Chloride ER [K-Dur 20] 20 meq PO DAILY #30 tab amLODIPine [Norvasc] 10 mg PO QAM #30 Rivaroxaban [Xarelto] 20 mg PO DAILY Omeprazole 20 mg PO DAILY Discharge Medication List Folic Acid 0.4 mg PO QAM 07/19/15 [History] Multivitamin [Men's Multi-Vitamin] 1 tab PO QAM 07/19/15 [History] Pramipexole Di-HCl [Mirapex] 0.5 mg PO HS 07/19/15 [History] Fenofibrate Nanocrystallized [Triglide] 160 mg PO QAM 05/17/16 [History] Levothyroxine Sodium [Synthroid] 75 mcg PO QAM 10/11/17 [History] Tamsulosin HCl [Flomax] 0.4 mg PO QAM 10/11/17 [History] Celecoxib [CeleBREX] 200 mg PO BID 07/28/18 [History] Furosemide [Lasix] 20 mg PO DAILY 07/28/18 [History] Gabapentin 600 mg PO BID 07/28/18 [History] Losartan [Cozaar] 100 mg PO DAILY #30 tab 07/30/18 [Rx] Potassium Chloride ER [K-Dur 20] 20 meq PO DAILY #30 tab 07/30/18 [Rx] amLODIPine [Norvasc] 10 mg PO QAM #30 07/30/18 [Rx] Omeprazole 20 mg PO DAILY 12/17/18 [History] Rivaroxaban [Xarelto] 20 mg PO DAILY 12/17/18 [History] Follow up Appointment(s)/Referral(s): Eva Morrison MD [STAFF PHYSICIAN] - As Needed Patient Instructions/Handouts: *Surgery [facility] - (Anesthesia) Endoscopy Discharge Instructions, Diverticulosis (DC), Colorectal Polyps (DC), Colonoscopy (DC) Activity/Diet/Wound Care/Special Instructions: Repeat colonoscopy in 2 years, 2020 Discharge Disposition: HOME SELF-CARE
[2018-12-23 14:14] VITALS: BP 185/85; PULSE 60
== END | disposition home or self-care (01) ==
LOC: ORWHC2ENDO 12:43
PROVIDERS: ATTEND Internal Medicine
DX: Z12.11 Encounter for screening for malignant neoplasm of colon (principal); K57.30 Diverticulosis of large intestine without perforation or abscess without bleeding; D12.2 Benign neoplasm of ascending colon; E07.9 Disorder of thyroid, unspecified; E78.5 Hyperlipidemia, unspecified; G25.81 Restless legs syndrome; K21.9 Gastro-esophageal reflux disease without esophagitis; I10 Essential (primary) hypertension; G47.33 Obstructive sleep apnea (adult) (pediatric); M19.90 Unspecified osteoarthritis, unspecified site; Z79.01 Long term (current) use of anticoagulants; Z79.899 Other long term (current) drug therapy; Z86.711 Personal history of pulmonary embolism; Z99.89 Dependence on other enabling machines and devices; Z87.01 Personal history of pneumonia (recurrent); Z79.890 Hormone replacement therapy; Z86.010 Personal history of colon polyps; Z79.1 Long term (current) use of non-steroidal anti-inflammatories (NSAID)
CPT/HCPCS: 88305; 45385; J2704

== ENCOUNTER 2019-08-28 12:43 | Emergency (ER) | payer MEDICARE, OTHER ==
[2019-08-28 13:06] VITALS: RESP 18; TEMP 98
--- NOTE | 2019-08-28 14:06 | ED ---
Upper Extremity HPI - General Chief Complaint: Extremity Injury, Upper Stated Complaint: Rib pain Time Seen by Provider: 08/28/19 13:38 Source: patient, RN notes reviewed Mode of arrival: ambulatory Limitations: no limitations - History of Present Illness Initial Comments: This a 69-year-old male presents emergency Department chief complaint of left-sided rib pain. Patient states that he went to get up and felt a pop in his left lower ribs. Patient states with any movement it worse especially standing up. He does not feel short of breath is no anterior chest pain. Denies any fevers or chills no abdominal pain. Patient states that he has been favoring his left side because he had recent shoulder surgery. Patient was on pain medications states that he is out at this point. Patient denies any complaints. - Related Data Home Medications Medication Instructions Recorded Confirmed Folic Acid 0.4 mg PO QAM 07/19/15 12/17/18 Multivitamin [Men's Multi-Vitamin] 1 tab PO QAM 07/19/15 12/17/18 Pramipexole Di-HCl [Mirapex] 0.5 mg PO HS 07/19/15 12/17/18 Fenofibrate Nanocrystallized 160 mg PO QAM 05/17/16 12/17/18 [Triglide] Levothyroxine Sodium [Synthroid] 75 mcg PO QAM 10/11/17 12/17/18 Tamsulosin HCl [Flomax] 0.4 mg PO QAM 10/11/17 12/17/18 Celecoxib [CeleBREX] 200 mg PO BID 07/28/18 12/17/18 Furosemide [Lasix] 20 mg PO DAILY 07/28/18 12/17/18 Gabapentin 600 mg PO BID 07/28/18 12/17/18 Omeprazole 20 mg PO DAILY 12/17/18 12/17/18 Rivaroxaban [Xarelto] 20 mg PO DAILY 12/17/18 12/17/18 Previous Rx's Medication Instructions Recorded Losartan [Cozaar] 100 mg PO DAILY #30 tab 07/30/18 Potassium Chloride ER [K-Dur 20] 20 meq PO DAILY #30 tab 07/30/18 amLODIPine [Norvasc] 10 mg PO QAM #30 07/30/18 HYDROcodone/APAP 7.5-325MG [[place] 1 tab PO Q6HR PRN 3 Days #12 tab 08/28/19 7.5325] Allergies Allergy/AdvReac Type Severity Reaction Status Date / Time No Known Allergies Allergy Verified 08/28/19 13:09 Review of Systems ROS Statement: Those systems with pertinent positive or pertinent negative responses have been documented in the HPI. ROS Other: All systems not noted in ROS Statement are negative. Past Medical History Past Medical History: Chest Pain / Angina, GERD/Reflux, Hyperlipidemia, Hypertension, Osteoarthritis (OA), Pneumonia, Pulmonary Embolus (PE), Sleep Apnea/CPAP/BIPAP, Thyroid Disorder Additional Past Medical History / Comment(s): chronic lower backpain, DJD, neuropathy bilateral legs, diverticulosis,. PE (diagnosed 07/28/2018), restless leg syndrome, no cpap used, History of Any Multi-Drug Resistant Organisms: None Reported Past Surgical History: Adenoidectomy, Breast Surgery, Cholecystectomy, Heart Catheterization, Joint Replacement, Orthopedic Surgery, Tonsillectomy Additional Past Surgical History / Comment(s): L breast benign lumpectomy, 2 lumpectomy left leg, R shoulder surgery -supraspinatus, bilateral knees unicompartmental replacements, colonoscopy, vasectomy with reversal.left thumb partial amputaion, orchiectomy (04/2016) Past Anesthesia/Blood Transfusion Reactions: No Reported Reaction, Unable to Obtain Additional Past Anesthesia/Blood Transfusion Reaction / Comment(s): adopted-no family hx Past Psychological History: No Psychological Hx Reported Smoking Status: Never smoker - Past Family History Father Family Medical History: Unable to Obtain Additional Family Medical History / Comment(s): Pt adopted and does not know family history. General Exam Limitations: no limitations General appearance: alert, in no apparent distress Head exam: Present: atraumatic, normocephalic, normal inspection Eye exam: Present: normal appearance, PERRL, EOMI. Absent: scleral icterus, conjunctival injection, periorbital swelling Neck exam: Present: normal inspection. Absent: tenderness, meningismus, lymphadenopathy Respiratory exam: Present: normal lung sounds bilaterally, chest wall tenderness (Left lower). Absent: respiratory distress, wheezes, rales, rhonchi, stridor Cardiovascular Exam: Present: regular rate, normal rhythm, normal heart sounds. Absent: systolic murmur, diastolic murmur, rubs, gallop, clicks GI/Abdominal exam: Present: soft, normal bowel sounds. Absent: distended, tenderness, guarding, rebound, rigid Neurological exam: Present: alert, oriented X3, CN II-XII intact, reflexes normal. Absent: motor sensory deficit Skin exam: Present: warm, dry, intact, normal color. Absent: rash Course Vital Signs 08/28/19 13:03 Temperature 98.0 F Pulse Rate 70 Respiratory 18 Rate Blood Pressure 149/84 O2 Sat by Pulse 97 Oximetry Medical Decision Making - Medical Decision Making Rib series x-rays were reviewed shows evidence of old rib fracture no pneumotho rax. There may be an underlying nondisplaced fracture not identified. Patient provided pain medication discuss incentive spirometry and return parameters discussed. Disposition Clinical Impression: Rib pain on left side Disposition: HOME SELF-CARE Condition: Stable Instructions (If sedation given, give patient instructions): Rib Contusion (ED), Rib Fracture (ED) Additional Instructions: Please return to the Emergency Department if symptoms worsen or any other concerns. Prescriptions: HYDROcodone/APAP 7.5-325MG [[place] 7.5-325] 1 tab PO Q6HR PRN 3 Days #12 tab PRN Reason: pain Is patient prescribed a controlled substance at d/c from ED?: Yes When asked, does pt state using other controlled substances?: No If prescribed controlled substance>3 days was MAPS reviewed?: Prescribed <3 Days If opioid is for acute pain is fill amount 7 days or less?: Yes If Rx opioid, was Start Talking consent form obtained?: Yes Referrals: Nicolás Mir MD [Primary Care Provider] - 1-2 days Time of Disposition: 14:39
--- NOTE | 2019-08-28 14:15 | XR ---
EXAMINATION TYPE: XR ribs LT w pa chest xray DATE OF EXAM: 08/28/2019 CLINICAL HISTORY: Left rib pain and chest pain TECHNIQUE: Single frontal view of the chest is obtained. 2 views of the left ribs were also obtained. COMPARISON: None FINDINGS: There is no focal air space opacity, pleural effusion, or pneumothorax seen. The cardiac silhouette size is within normal limits. No acute displaced left rib fracture is seen. There is an ol d healed fracture deformity of the posterior margin of rib 8 on the left. There is diffuse osseous de mineralization. IMPRESSION: No acute cardiopulmonary process. No acute displaced left rib fracture. Old healed fract ure deformity of the posterior left eighth rib.
[2019-08-28 14:43] VITALS: BP 135/74; PULSE 80
== END 2019-08-28 14:41 | disposition home or self-care (01) ==
LOC: EC 12:43
DX: R07.81 Pleurodynia (principal); K21.9 Gastro-esophageal reflux disease without esophagitis; E78.5 Hyperlipidemia, unspecified; I10 Essential (primary) hypertension; M19.90 Unspecified osteoarthritis, unspecified site; Z86.711 Personal history of pulmonary embolism; E07.9 Disorder of thyroid, unspecified; G62.9 Polyneuropathy, unspecified; G25.81 Restless legs syndrome; Z87.81 Personal history of (healed) traumatic fracture; Z79.01 Long term (current) use of anticoagulants; Z79.1 Long term (current) use of non-steroidal anti-inflammatories (NSAID); Z79.890 Hormone replacement therapy; Z79.899 Other long term (current) drug therapy; Z96.653 Presence of artificial knee joint, bilateral; Z98.890 Other specified postprocedural states; X50.9XXA Other and unspecified overexertion or strenuous movements or postures, initial encounter; Y93.89 Activity, other specified
CPT/HCPCS: 99283

== ENCOUNTER 2020-10-08 13:11 | Day surgery (SDC) | payer MEDICARE, OTHER ==
[~2020-10-08 13:11] MED LIST changes: -LACTATED RINGERS 1,000 ML IV ONE; -LIDOCAINE 1% 20 ML VIAL (10MG/ML) FOR IV START INTRADERMA ONE; -LIDOCAINE 1% 20 ML VIAL (10MG/ML) FOR IV START INTRADERMA PRN; -PROPOFOL 10 MG/ML 20 ML VIAL IV ONE
[2020-10-08 13:53] VITALS: RESP 16; TEMP 97.5
[2020-10-08] MEDS ORDERED: LIDOCAINE 1% (10MG/ML) FOR IV START INTRADERMA ONE (13:57)
[2020-10-08] MEDS ORDERED: LIDOCAINE 1% INJ 10MG/ML (20 ML MDV) ONE (14:39)
[2020-10-08] MEDS ORDERED: PROPOFOL 10 MG/ML 20 ML VIAL IV ONE (14:39)
--- NOTE | 2020-10-08 14:55 | P.PCN ---
Date of Procedure: 10/08/20 Procedure(s) Performed: BRIEF HISTORY: Patient is a 70-year-old pleasant white male scheduled for an elective colonoscopy as a part of evaluation of the colon polyps. PROCEDURE PERFORMED: Colonoscopy. PREOPERATIVE DIAGNOSIS: 3 of colon polyps. IV sedation per Anesthesia. PROCEDURE: After informed consent was obtained, the patient, was brought into the endoscopy unit. IV sedation was administered by Anesthesia under continuous monitoring. Digital rectal examination was normal. Initially the Olympus CF-160 flexible video colonoscope was then inserted in the rectum, gradually advanced into the cecum without any difficulty. Careful examination was performed as the scope was gradually being withdrawn. Ileocecal valve and the appendiceal orifice were visualized and appeared normal. Prep was excellent. Mucosa of the cecum, ascending colon, transverse colon, descending colon, sigmoid colon, and rectum appeared normal. Retroflexion was performed in the rectum and no lesions were seen. The patient tolerated the procedure well. IMPRESSION: Normal-appearing colon from rectum to cecum with no evidence of colorectal neoplasia. RECOMMENDATIONS: Findings of this examination were discussed with the patient as well as his family. He was advised to have a repeat coloscopy in 5 years from now because of prior history of colon polyps.
[2020-10-08 15:24] VITALS: BP 160/88; PULSE 63
== END 2020-10-08 15:35 | disposition home or self-care (01) ==
LOC: ORWHC2ENDO 13:11
PROVIDERS: ATTEND Internal Medicine Gastroenterology
DX: Z86.010 Personal history of colon polyps (principal); E07.9 Disorder of thyroid, unspecified; E78.5 Hyperlipidemia, unspecified; K21.9 Gastro-esophageal reflux disease without esophagitis; G47.33 Obstructive sleep apnea (adult) (pediatric); M19.90 Unspecified osteoarthritis, unspecified site; Z79.82 Long term (current) use of aspirin; Z79.890 Hormone replacement therapy; Z79.899 Other long term (current) drug therapy; Z86.711 Personal history of pulmonary embolism
CPT/HCPCS: 45378; J2001; J2704

== ENCOUNTER 2021-01-06 02:24 | Inpatient (IN) | payer MEDICARE, OTHER ==
[2021-01-06] MEDS ORDERED: SODIUM CHLORIDE 0.9% 1,000 ML IV STA (02:30)
[2021-01-06] MEDS ORDERED: IPRATROPIUM-ALBUTEROL 3 ML NEB INHALATION STA (02:30)
--- NOTE | 2021-01-06 02:32 | ED ---
SOB HPI - General Stated Complaint: dyspnea Time Seen by Provider: 01/06/21 02:28 Source: RN notes reviewed, old records reviewed, Caregiver Limitations: no limitations - History of Present Illness Initial Comments: This is a 70-year-old male to the ER for evaluation of chest pain shortness of breath. Patient does have bilateral pulmonary embolism. Patient has history of bilateral pulmonary embolism not currently on anticoagulation. Patient accepted in transfer for further evaluation management. Patient is currently resting comfortably although mildly short of breath with chest pain MD Complaint: shortness of breath, cough, chest pain -: hour(s) Severity: moderate Severity scale (1-10): 5 Quality: dull, aching Consistency: constant Improves With: nothing Worsens With: nothing Known History Of: other (Bilateral pulmonary embolism) Associated Symptoms: chest pain, pain with inspiration Treatments Prior to Arrival: oxygen - Related Data Home Medications Medication Instructions Recorded Confirmed Folic Acid 0.4 mg PO QAM 07/19/15 10/08/20 Pramipexole Di-HCl [Mirapex] 0.5 mg PO HS 07/19/15 10/08/20 Fenofibrate Nanocrystallized 160 mg PO QAM 05/17/16 10/08/20 [Triglide] Levothyroxine Sodium [Synthroid] 75 mcg PO QAM 10/11/17 10/08/20 Celecoxib [CeleBREX] 200 mg PO BID 07/28/18 10/08/20 Gabapentin 600 mg PO BID 07/28/18 10/08/20 Omeprazole 20 mg PO DAILY 12/17/18 10/08/20 Aspirin 81 cap PO RT-DAILY 10/08/20 10/08/20 Previous Rx's Medication Instructions Recorded Losartan [Cozaar] 100 mg PO DAILY #30 tab 07/30/18 amLODIPine [Norvasc] 10 mg PO QAM #30 07/30/18 Allergies Allergy/AdvReac Type Severity Reaction Status Date / Time No Known Allergies Allergy Verified 08/28/19 13:09 Review of Systems ROS Statement: Those systems with pertinent positive or pertinent negative responses have been documented in the HPI. ROS Other: All systems not noted in ROS Statement are negative. Past Medical History Past Medical History: Chest Pain / Angina, GERD/Reflux, Hyperlipidemia, Hypertension, Osteoarthritis (OA), Pneumonia, Pulmonary Embolus (PE), Sleep Apnea/CPAP/BIPAP, Thyroid Disorder Additional Past Medical History / Comment(s): chronic lower backpain, DJD, neuropathy bilateral legs, diverticulosis,. PE (diagnosed 07/28/2018), restless leg syndrome, no cpap used, History of Any Multi-Drug Resistant Organisms: None Reported Past Surgical History: Adenoidectomy, Breast Surgery, Cholecystectomy, Heart Catheterization, Joint Replacement, Orthopedic Surgery, Tonsillectomy Additional Past Surgical History / Comment(s): L breast benign lumpectomy, 2 lumpectomy left leg, R shoulder surgery -supraspinatus, bilateral knees unicompartmental replacements, colonoscopy, vasectomy with reversal.left thumb partial amputaion, orchiectomy (04/2016) Past Anesthesia/Blood Transfusion Reactions: No Reported Reaction, Unable to Obtain Additional Past Anesthesia/Blood Transfusion Reaction / Comment(s): adopted-no family hx Past Psychological History: No Psychological Hx Reported Additional Psychological History / Comment(s): , Smoking Status: Never smoker Past Alcohol Use History: None Reported Additional Past Alcohol Use History / Comment(s): Pt used to drink socially but has not drank alcohol since April 1998. Past Drug Use History: None Reported - Past Family History Father Family Medical History: Unable to Obtain Additional Family Medical History / Comment(s): Pt adopted and does not know family history. General Exam General appearance: anxious Head exam: Present: atraumatic, normocephalic, normal inspection Eye exam: Present: normal appearance, PERRL, EOMI. Absent: scleral icterus, conjunctival injection, periorbital swelling ENT exam: Present: normal exam, mucous membranes moist Neck exam: Present: normal inspection. Absent: tenderness, meningismus, lymphadenopathy Respiratory exam: Present: normal lung sounds bilaterally. Absent: respiratory distress, wheezes, rales, rhonchi, stridor Cardiovascular Exam: Present: regular rate, normal rhythm, normal heart sounds. Absent: systolic murmur, diastolic murmur, rubs, gallop, clicks GI/Abdominal exam: Present: soft, normal bowel sounds. Absent: distended, tenderness, guarding, rebound, rigid Extremities exam: Present: normal inspection, full ROM, normal capillary refill. Absent: tenderness, pedal edema, joint swelling, calf tenderness Back exam: Present: normal inspection Neurological exam: Present: alert, oriented X3, CN II-XII intact Psychiatric exam: Present: normal affect, normal mood Skin exam: Present: warm, dry, intact, normal color. Absent: rash Course Vital Signs 01/06/21 01/06/21 01/06/21 02:25 03:13 04:22 Temperature 97.9 F Pulse Rate 79 79 Respiratory 18 18 18 Rate Blood Pressure 148/99 146/78 O2 Sat by Pulse 98 99 Oximetry - Reevaluation(s) Reevaluation #1: 01/06/21 04:24 Medical records reviewed 01/06/21 04:24 Transferring paperwork is reviewed Reevaluation #2: 01/06/21 04:24 Patient is in no distress on arrival or throughout ER stay Medical Decision Making - Medical Decision Making 70-year-old male to the ER for evaluation patient presents today for recurrent bilateral pulmonary embolism Disposition Clinical Impression: Bilateral pulmonary embolism Disposition: ADMITTED IP TO THIS HOSP Condition: Serious Is patient prescribed a controlled substance at d/c from ED?: No
[2021-01-06] MEDS ORDERED: MORPHINE SULFATE 4 MG/ML SYRINGE IV PRN (02:40)
[2021-01-06] MEDS ORDERED: NALOXONE 0.4 MG/ML 1 ML VIAL IV PRN (02:40)
[2021-01-06] MEDS ORDERED: HEPARIN SODIUM 1,000 UN/ML (10ML VL) IV PRN (03:05)
[2021-01-06] MEDS: HEPARIN SOD,PORK IN 0.45% NACL 25,000 UNIT in 0.45% NACL 1 250ML.BAG IV SCH ×2 (03:38→15:06)
--- NOTE | 2021-01-06 05:23 | P.HPIM ---
History of Present Illness H&P Date: 01/06/21 Chief Complaint: PE 70 year old male with BPH, hypertension , history of PE Patient was transferred from another facility for bilateral PE. Patient today started complaining of shortness of breath which has been progressive over the past couple days. He denies any chest pain denies any leg swelling denies any leg pain denies any nausea vomiting denies any recent travel denies any history of cancer denies any recent hospitalization denies any injuries to the legs. Patient denies any history of thrombophilia. In the ER blood work was done showed elevated d-dimer and CT angios showed bilateral PE for which she was transferred to our facility for further care Patient currently feels short of breath with slightest activity and talking, he's on 4 L oxygen again he denies any chest pain. Blood work reviewed overall unremarkable except for elevated d-dimer Patient has the history of PE about 3-4 years ago then he was treated with Xarelto for 6 months Review of Systems Pertinent positives as noted in HPI. All other systems were reviewed and are negative Past Medical History Past Medical History: Chest Pain / Angina, GERD/Reflux, Hyperlipidemia, Hypertension, Osteoarthritis (OA), Pneumonia, Pulmonary Embolus (PE), Sleep Apnea/CPAP/BIPAP, Thyroid Disorder Additional Past Medical History / Comment(s): chronic lower backpain, DJD, neuropathy bilateral legs, diverticulosis,. PE (diagnosed 07/28/2018), restless leg syndrome, no cpap used, History of Any Multi-Drug Resistant Organisms: None Reported Past Surgical History: Adenoidectomy, Breast Surgery, Cholecystectomy, Heart Catheterization, Joint Replacement, Orthopedic Surgery, Tonsillectomy Additional Past Surgical History / Comment(s): L breast benign lumpectomy, 2 lumpectomy left leg, R shoulder surgery -supraspinatus, bilateral knees unicompartmental replacements, colonoscopy, vasectomy with reversal.left thumb partial amputaion, orchiectomy (04/2016) Past Anesthesia/Blood Transfusion Reactions: No Reported Reaction, Unable to Obtain Additional Past Anesthesia/Blood Transfusion Reaction / Comment(s): adopted-no family hx Past Psychological History: No Psychological Hx Reported Additional Psychological History / Comment(s): , Smoking Status: Never smoker Past Alcohol Use History: None Reported Additional Past Alcohol Use History / Comment(s): Pt used to drink socially but has not drank alcohol since April 1998. Past Drug Use History: None Reported - Past Family History Father Family Medical History: No Reported History Additional Family Medical History / Comment(s): Pt adopted and does not know family history. Medications and Allergies Home Medications Medication Instructions Recorded Confirmed Type Folic Acid 0.4 mg PO QAM 07/19/15 10/08/20 History Pramipexole Di-HCl [Mirapex] 0.5 mg PO HS 07/19/15 10/08/20 History Fenofibrate Nanocrystallized 160 mg PO QAM 05/17/16 10/08/20 History [Triglide] Levothyroxine Sodium [Synthroid] 75 mcg PO QAM 10/11/17 10/08/20 History Celecoxib [CeleBREX] 200 mg PO BID 07/28/18 10/08/20 History Gabapentin 600 mg PO BID 07/28/18 10/08/20 History Losartan [Cozaar] 100 mg PO DAILY #30 tab 07/30/18 10/08/20 Rx amLODIPine [Norvasc] 10 mg PO QAM #30 07/30/18 10/08/20 Rx Omeprazole 20 mg PO DAILY 12/17/18 10/08/20 History Aspirin 81 cap PO RT-DAILY 10/08/20 10/08/20 History Allergies Allergy/AdvReac Type Severity Reaction Status Date / Time No Known Allergies Allergy Verified 08/28/19 13:09 Physical Exam Vitals: Vital Signs Temp Pulse Resp BP Pulse Ox 01/06/21 03:13 18 01/06/21 02:25 97.9 F 79 18 148/99 98 Intake and Output 01/05/21 01/05/21 01/06/21 14:59 22:59 06:59 Other: Weight 117.934 kg Constitutional: No acute distress, conversant, pleasant Eyes: Anicteric sclerae, moist conjunctiva, Pupils equal round reactive to light ENMT: NC/AT Oropharynx clear, no erythema, or exudates Neck: Supple, FROM, no masses, or JVD No carotid bruits No thyromegaly Lungs: Clear to auscultation Clear to percussion Normal respiratory effort, no accessory muscle use Cardiovascular: Heart regular in rate and rhythm, No murmurs, gallops, or rubs No peripheral edema Abdominal: Soft Nontender, no guarding, rebound or rigidity Abdomen moving with respiration Normoactive bowel sounds No hepatomegaly, No splenomegaly No palpable mass No abdominal wall hernia noted Skin: Normal temperature, tone, texture, turgor No induration No subcutaneous nodules No rash, lesions No ulcers Extremities: No digital cyanosis No clubbing Pedal pulses intact and symmetrical Radial pulses intact and symmetrical No calf tenderness Psychiatric: Alert and oriented to person, place and time Appropriate affect fair judgement Neuro Muscles Strength 5/5 in all 4 extremities Sensation to light touch grossly present throughout Cranial nerves II-XII grossly intact No focal sensory deficits Lymphatics: no palpable cervical or supraclavicular , or inguinal lymph nodes Assessment and Plan Assessment: Acute hypoxic respiratory failure Acute bilateral PE Plan Anticoagulation Check echocardiogram Check venous looks ultrasound lower extremities 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
[2021-01-06] MEDS: SODIUM CHLORIDE 0.9% 1,000 ML IV SCH (08:43)
[2021-01-06] MEDS: PANTOPRAZOLE 40 MG/10 ML VIAL IV SCH (08:59)
[2021-01-06] MEDS: amLODIPine 10 MG TAB PO SCH (08:59)
[2021-01-06] MEDS: LOSARTAN 50 MG TAB PO SCH (08:59)
--- NOTE | 2021-01-06 10:15 | ECHOF ---
Referral Reason:PE MEASUREMENTS -------- HEIGHT: 175.3 cm WEIGHT: 117.9 kg BP: 130/101 RVIDd: 3.8 cm (< 3.3) IVSd: 1.4 cm (0.6 - 1.1) LVIDd: 4.2 cm (3.9 - 5.3) LVPWd: 1.7 cm (0.6 - 1.1) IVSs: 2.0 cm LVIDs: 2.1 cm LVPWs: 1.8 cm LAESV Index (A-L): 30.94 ml/m Ao Diam: 3.9 cm (2.0 - 3.7) AV Cusp: 1.5 cm (1.5 - 2.6) MV E Jacky: 0.95 m/s MV DecT: 99 ms MV A Jacky: 1.45 m/s MV E/A Ratio: 0.65 RAP: 5.00 mmHg RVSP: 35.59 mmHg FINDINGS -------- Sinus rhythm. This was a technically adequate study. The left ventricular size is normal. There is moderate concentric left ventricular hypertrophy. O verall left ventricular systolic function is normal with, an EF between 55 - 60 %. The right ventricle is mild to moderately enlarged. LA is midly dilated 29-33ml/m2. The right atrial size is normal. Interatrial and interventricular septum intact. The aortic valve was not well visualized. There is no evidence of aortic regurgitation. There is no evidence of aortic stenosis. There is trace mitral regurgitation. Mild tricuspid regurgitation present. There is mild pulmonary hypertension. The right ventricular systolic pressure, as measured by Doppler, is 35.59mmHg. There is no pulmonic regurgitation present. The aortic root size is normal. IVC Not well visulized. There is no pericardial effusion. CONCLUSIONS -------- 1. The left ventricular size is normal. 2. There is moderate concentric left ventricular hypertrophy. 3. Overall left ventricular systolic function is normal with, an EF between 55 - 60 %. 4. The right ventricle is mild to moderately enlarged. 5. LA is midly dilated 29-33ml/m2. 6. There is trace mitral regurgitation. 7. Mild tricuspid regurgitation present. 8. There is mild pulmonary hypertension. 9. The right ventricular systolic pressure, as measured by Doppler, is 35.59mmHg. CHRONIC DISEASE EPIDEMIOLOGIST: Ceci Davis RDCS
[2021-01-06 10:16] LABS: ALT 12 U/L (4-49); AST 20 U/L (17-59); African American GFR (CKD) >90 (>60 ml/min/1.73 sqM); Albumin 3.1 g/dL (3.5-5.0); Alkaline Phosphatase 51 U/L (38-126); Anion Gap 5 mmol/L; Blood Urea Nitrogen 14 mg/dL (9-20); Calcium 8.6 mg/dL (8.4-10.2); Carbon Dioxide 25 mmol/L (22-30); Chloride 114 mmol/L (98-107); Glucose 116 mg/dL (74-99); Non-African American GFR(CKD) >90 (>60 ml/min/1.73 sqM); Potassium 3.4 mmol/L (3.5-5.1); Sodium 144 mmol/L (137-145); Total Bilirubin 0.3 mg/dL (0.2-1.3); Total Protein 5.4 g/dL (6.3-8.2)
[2021-01-06 10:17] LABS: Partial Thromboplastin Time 52.5 sec (22.0-30.0); Prothrombin Time 10.8 sec (9.0-12.0)
--- NOTE | 2021-01-06 10:38 | P.GSCN ---
History of Present Illness Consult date: 01/06/21 Reason for Consult: Bilateral pulmonary embolism Requesting physician: Laurent Cuevas History of present illness: This a 70-year-old white male who presented to the emergency department as a transfer from [facility]. The patient went to [facility] yesterday with complaints of shortness of breath and on able to take deep breaths. He had a CT angiogram of the chest showing acute bilateral pulmonary embolism, large clot burden. No saddle embolism. For this reason vascular surgery has been consulted for further evaluation and treatment. He has a past medical history including previous pulmonary embolism 5 years ago, not on anticoagulation, angina, GERD, hyperlipidemia, hypertension, hypothyroid is on, and sleep apnea. He is a nonsmoker, no history of alcohol abuse. He denies any recent surgeries, traveling, injuries, but does state he lives a sedentary lifestyle and sits most of the day due to chronic back pain. 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 He is unsure of his family history as he is adopted. Echocardiogram performed, awaiting final study. Venous Doppler bilateral lower extremities ordered, awaiting final report. He states he is feeling better today, shortness of breath is improving. He has been afebrile, and no complaints of chest pain. He is on 4 L of nasal cannula, his oxygen saturation is between 95 and 98%. He does state he has chronic lower extremity edema. Patient is currently on IV heparin drip. Labs are currently pending. Labs were reviewed from [facility] showing troponin less than 0.05, WBC 5, hemoglobin 15, hematocrit 46, platelet count 186,000, BUN 14, creatinine 0.7, sodium 142, potassium 3.5, d-dimer 1.84. Patient also states he had a recent colonoscopy in October 2020, which he states was normal. Review of Systems A 14 point review of systems was completed all pertinent positives and negatives as stated in the HPI Past Medical History Past Medical History: Chest Pain / Angina, GERD/Reflux, Hyperlipidemia, Hypertension, Osteoarthritis (OA), Pneumonia, Pulmonary Embolus (PE), Sleep Apnea/CPAP/BIPAP, Thyroid Disorder Additional Past Medical History / Comment(s): chronic lower backpain, DJD, neuropathy bilateral legs, diverticulosis,. PE (diagnosed 07/28/2018), restless leg syndrome, no cpap used, History of Any Multi-Drug Resistant Organisms: None Reported Past Surgical History: Adenoidectomy, Breast Surgery, Cholecystectomy, Heart Catheterization, Joint Replacement, Orthopedic Surgery, Tonsillectomy Additional Past Surgical History / Comment(s): L breast benign lumpectomy, 2 lumpectomy left leg, R shoulder surgery -supraspinatus, bilateral knees unicompartmental replacements, colonoscopy, vasectomy with reversal.left thumb partial amputaion, orchiectomy (04/2016) Past Anesthesia/Blood Transfusion Reactions: No Reported Reaction, Unable to Obtain Additional Past Anesthesia/Blood Transfusion Reaction / Comm: adopted-no family hx Past Psychological History: No Psychological Hx Reported Additional Psychological History / Comment(s): , Smoking Status: Never smoker Past Alcohol Use History: None Reported Additional Past Alcohol Use History / Comment(s): Pt used to drink socially but has not drank alcohol since April 1998. Past Drug Use History: None Reported - Past Family History Father Family Medical History: No Reported History Additional Family Medical History / Comment(s): Pt adopted and does not know family history. Medications and Allergies Home Medications Medication Instructions Recorded Confirmed Type Folic Acid 0.4 mg PO QAM 07/19/15 01/06/21 History Pramipexole Di-HCl [Mirapex] 0.5 mg PO HS 07/19/15 01/06/21 History Fenofibrate Nanocrystallized 160 mg PO QAM 05/17/16 01/06/21 History [Triglide] Levothyroxine Sodium [Synthroid] 75 mcg PO QAM 10/11/17 01/06/21 History Celecoxib [CeleBREX] 200 mg PO BID 07/28/18 01/06/21 History Gabapentin 600 mg PO BID 07/28/18 01/06/21 History Aspirin 81 cap PO DAILY 10/08/20 01/06/21 History Losartan [Cozaar] 50 mg PO DAILY 01/06/21 01/06/21 History Ondansetron [Zofran ODT] 4 mg PO Q8HR PRN 01/06/21 01/06/21 History Tamsulosin HCl [Flomax] 0.4 mg PO DAILY 01/06/21 01/06/21 History amLODIPine [Norvasc] 10 mg PO DAILY 01/06/21 01/06/21 History traMADol HCL [Ultram] 50 mg PO TID PRN 01/06/21 01/06/21 History Allergies Allergy/AdvReac Type Severity Reaction Status Date / Time No Known Allergies Allergy Verified 01/06/21 08:55 Surgical - Exam Vital Signs Temp Pulse Resp BP Pulse Ox 97.9 F 79 18 148/99 98 01/06/21 02:25 01/06/21 02:25 01/06/21 02:25 01/06/21 02:25 01/06/21 02:25 General appearance: The patient is alert, oriented, appears in no acute distress. HET: Head is normocephalic and atraumatic. Neck: Supple without lymphadenopathy. Trachea midline. Heart: S1 S2. Regular rate and rhythm. Lungs: Clear to auscultation bilaterally. Abdomen: Soft, nontender, nondistended. Extremities: Normal skin color and turgor. Bilateral lower extremity edema. Radial and pedal pulses are 2/4 bilaterally. Neurological: No focal deficits. Strength and sensation are grossly intact. Results - Labs 01/06/21 09:09 01/06/21 09:09 - Imaging Comments: CT angiogram chest from outside facility reported acute bilateral pulmonary embolism with large clot burden. No saddle embolism. Assessment and Plan Assessment: 1. Bilateral pulmonary embolism 2. History of bilateral pulmonary embolism, not on anticoagulation 3. Hyperlipidemia 4. Hypertension 5. Hypothyroidism Plan: 1. Continue IV heparin drip, can transition to oral anticoagulation tomorrow 2. Echocardiogram with no evidence of right heart strain per cardiology 3. Venous Doppler reviewed 4. Continue symptomatic and supportive care 5. May have heart healthy diet 6. There is no indication for any vascular surgical intervention at this time Thank you for this consultation and allowing us take part in the plan of care of your patient during his hospital stay The impression and plan of care has been dictated as directed. Dr. Kelly I performed a history and examination of this patient, discussed the same with the dictator. I agree with the dictator's note ,documented as a scribe. Any additional findings or plans will be noted.
--- NOTE | 2021-01-06 11:05 | P.CRDCN ---
History of Present Illness History of present illness: HISTORY OF PRESENTING ILLNESS This is a pleasant 70-year-old male past medical history significant for nonobstructive coronary artery disease, hypertension, obesity, bilateral small pulmonary emboli diagnosed about 4 years ago and was treated with Xarelto for about 9 months. He follows in the office with Dr. Tam. We have been asked to see in consultation for echo. Patient is seen and examined at bedside. Patient states that he's been having worsening shortness of breath over the past 2 weeks progressively getting worse over the past couple days. He presented to [facility]. He was Hypoxic SpO2 88%, D-dimer was elevated. CT chest was performed which showed acute bilateral pulmonary embolism. Large clot burden. No saddle embolism. No aortic aneurysm. No dissection. Patient states he does have a past in his back and states he cannot stand for more than 2030 minutes at a time without severe back pain. He states that he does have some prolonged immobilization at home he does spend most of his time in his bed sitting upright for the majority of the day. She does endorse right-sided rib pain, which increases with deep breath and palpation. He also has some increase lower extremity edema R > L. Also has some mild abdominal pain. He denies chest pain, palpitations, lightheadedness, syncope, or hemoptysis. He denies any recent travel, surgery. Denies history of GA, stroke, or diabetes or malignancy. He is a non-smoker. Denies alcohol use. When he was diagnosed with his PE about 4 years ago, he does not recall what caused it. DIAGNOSTICS EKG reveals sinus rhythm with 1st AV Block, right bundle branch block Last Cardiac Catheterization 07/2015- Mild disease in the LAD and the RCA without any significant focal occlusive disease Echocardiogram 06/2019- Revealed EF 55%, mild mitral regurgitation, mild tricuspid regurgitation Dobutamine stress echocardiogram 06/2019- Negative for reversible ischemia Laboratory reviewed, I [facility] d-dimer 1.84, troponin negative 1, and troponin negative 1 here, WBC 10.2, hemoglobin 15.1, platelets 188, sodium 144, potassium 3.4, BUN 14, serum creatinine 0.6 REVIEW OF SYSTEMS At the time of my exam: CONSTITUTIONAL: Denies fever or chills. CARDIOVASCULAR: Positive shortness of breath Denies chest pain, orthopnea, PND or palpitations. RESPIRATORY: Denies cough. GASTROINTESTINAL: Denies abdominal pain, diarrhea, constipation, nausea or vomiting. MUSCULOSKELETAL: Right sided rib pain NEUROLOGIC: Denies numbness, tingling, headacbe or weakness. ENDOCRINE: Denies fatigue, weight change, polydipsia or polyurina. GENITOURINARY: Denies burning, hematuria or urgency with micturation. HEMATOLOGIC: Denies history of anemia or bleeding. PHYSICAL EXAMINATION Blood pressure 165/93 heart rate 74 afebrile and maintaining oxygen saturation 90% on 4 L nasal cannula CONSTITUTIONAL: No apparent distress. HEENT: Head is normocephalic. Pupils are equal, round. Sclerae anicteric. Mucous membranes of the mouth are moist. No JVD. No carotid bruit. CHEST EXAMINATION: Lungs with diminished bilaterally. No chest wall tenderness is noted on palpation or with deep breathing. HEART EXAMINATION: Regular rate and rhythm. S1, S2 heard. No murmurs, gallops or rub. ABDOMEN: Soft, nontender. Positive bowel sounds. EXTREMITIES: 2+ peripheral pulses, no lower extremity edema and no calf tenderness. SKIN: intact NEUROLOGIC EXAMINATION: Patient is awake, alert and oriented x3. ASSESSMENT Acute bilateral pulmonary embolism Nonobstructive coronary artery disease Hypertension Obesity History of Bilateral small pulmonary emboli diagnosed about 4 years ago and was treated with Xarelto PLAN Obtain 2D echocardiogram and doppler study to assess cardiac structure and function. Continue IV heparin Continue patient's home cardiac medications Further recommendations based on clinical course Nurse Practitioner note has been reviewed, I agree with a documented findings and plan of care. Patient was seen and examined. Past Medical History Past Medical History: Chest Pain / Angina, GERD/Reflux, Hyperlipidemia, Hypertension, Osteoarthritis (OA), Pneumonia, Pulmonary Embolus (PE), Sleep Apnea/CPAP/BIPAP, Thyroid Disorder Additional Past Medical History / Comment(s): chronic lower backpain, DJD, neuropathy bilateral legs, diverticulosis,. PE (diagnosed 07/28/2018), restless leg syndrome, no cpap used, History of Any Multi-Drug Resistant Organisms: None Reported Past Surgical History: Adenoidectomy, Breast Surgery, Cholecystectomy, Heart Catheterization, Joint Replacement, Orthopedic Surgery, Tonsillectomy Additional Past Surgical History / Comment(s): L breast benign lumpectomy, 2 lumpectomy left leg, R shoulder surgery -supraspinatus, bilateral knees unicompartmental replacements, colonoscopy, vasectomy with reversal.left thumb partial amputaion, orchiectomy (04/2016) Past Anesthesia/Blood Transfusion Reactions: No Reported Reaction, Unable to Obtain Additional Past Anesthesia/Blood Transfusion Reaction / Comment(s): adopted-no family hx Past Psychological History: No Psychological Hx Reported Additional Psychological History / Comment(s): , Smoking Status: Never smoker Past Alcohol Use History: None Reported Additional Past Alcohol Use History / Comment(s): Pt used to drink socially but has not drank alcohol since April 1998. Past Drug Use History: None Reported - Past Family History Father Family Medical History: No Reported History Additional Family Medical History / Comment(s): Pt adopted and does not know family history. Medications and Allergies Home Medications Medication Instructions Recorded Confirmed Type Folic Acid 0.4 mg PO QAM 07/19/15 01/06/21 History Pramipexole Di-HCl [Mirapex] 0.5 mg PO HS 07/19/15 01/06/21 History Fenofibrate Nanocrystallized 160 mg PO QAM 05/17/16 01/06/21 History [Triglide] Levothyroxine Sodium [Synthroid] 75 mcg PO QAM 10/11/17 01/06/21 History Celecoxib [CeleBREX] 200 mg PO BID 07/28/18 01/06/21 History Gabapentin 600 mg PO BID 07/28/18 01/06/21 History Aspirin 81 cap PO DAILY 10/08/20 01/06/21 History Losartan [Cozaar] 50 mg PO DAILY 01/06/21 01/06/21 History Ondansetron [Zofran ODT] 4 mg PO Q8HR PRN 01/06/21 01/06/21 History Tamsulosin HCl [Flomax] 0.4 mg PO DAILY 01/06/21 01/06/21 History amLODIPine [Norvasc] 10 mg PO DAILY 01/06/21 01/06/21 History traMADol HCL [Ultram] 50 mg PO TID PRN 01/06/21 01/06/21 History Allergies Allergy/AdvReac Type Severity Reaction Status Date / Time No Known Allergies Allergy Verified 01/06/21 08:55 Physical Exam Vitals: Vital Signs Temp Pulse Pulse Resp BP BP Pulse Ox 01/06/21 06:21 94 26 H 01/06/21 05:52 94 26 H 130/101 95 01/06/21 04:22 79 18 146/78 99 01/06/21 03:13 18 01/06/21 02:25 97.9 F 79 18 148/99 98 Intake and Output 01/05/21 01/06/21 01/06/21 22:59 06:59 14:59 Other: Voiding Method Toilet # Voids 1 Weight 117.934 kg Results 01/06/21 09:09 Current Medications Generic Name Dose Route Start Last Admin Trade Name Freq PRN Reason Stop Dose Admin Heparin Sodium (Porcine) 0 unit 01/06/21 03:05 Heparin Sodium 1,000 Un/Ml (10ml Vl) IV PER PROTOCOL PRN Low PTT Protocol Sodium Chloride 1,000 mls @ 20 mls/hr 01/06/21 02:45 Saline 0.9% IV .Q24H MIGUE Heparin Sodium/Sodium Chloride 250 mls @ 21.228 mls/hr 01/06/21 03:15 01/06/21 03:38 25,000 unit/ Sodium Chloride IV 18 units/kg/hr .[id number] MIGUE 21.228 mls/hr Administration Protocol 18 UNITS/KG/HR Morphine Sulfate 4 mg 01/06/21 02:40 Morphine Sulfate 4 Mg/Ml Syringe IV Q4HR PRN Severe Pain Naloxone HCl 0.2 mg 01/06/21 02:40 Naloxone 0.4 Mg/Ml 1 Ml Vial IV Q2M PRN Opioid Reversal Pantoprazole Sodium 40 mg 01/06/21 09:00 Pantoprazole 40 Mg/10 Ml Vial IV DAILY MIGUE Intake and Output 01/05/21 01/06/21 01/06/21 22:59 06:59 14:59 Other: Voiding Method Toilet # Voids 1 Weight 117.934 kg
[2021-01-06 11:28] LABS: Basophils % (A) 1 %; Eosinophils # (A) 0.1 k/uL (0-0.7); Eosinophils % (A) 2 %; HCT 44.1 % (39.0-53.0); HGB 14.3 gm/dL (13.0-17.5); Lymphocytes % (A) 15 %; MCH 30.7 pg (25.0-35.0); MCHC 32.3 g/dL (31.0-37.0); Mean Platelet Volume 9.8; Monocytes # (A) 0.6 k/uL (0-1.0); Monocytes % (A) 8 %; Neutrophils # (A) 4.9 k/uL (1.3-7.7); Neutrophils % (A) 72 %; Platelet Count 182 k/uL (150-450); RBC 4.64 m/uL (4.30-5.90); RDW 14.3 % (11.5-15.5); WBC 6.8 k/uL (3.8-10.6)
--- NOTE | 2021-01-06 11:37 | P.PN ---
Subjective Progress Note Date: 01/06/21 Hospital course: Patient is a 70-year-old male with a past medical history of CAD, hypertension, hyperlipidemia, BPH, hypothyroidism ,GERD and previous history of pulmonary embolism diagnosed approximately 4-5 years ago requiring anticoagulation with Xarelto which was later discontinued about 6 months later. He presented to our facility as a transfer from [facility] where he presented with a chief complaint of shortness of breath progressively worsening over a two-week period and rapidly worsening over the past 3-4 days. At [facility], the patient underwent a CTA of his chest reportedly revealing acute bilateral pulmonary embolisms with large clot burden though no saddle pulmonary emboli . Patient was transferred to our facility for continued medical management. Upon arrival to our facility and EKG was completed revealing sinus rhythm with a first-degree AV block with MD interval of 234 ms and a right bundle branch block, no noted T wave or ST abnormality showing no signs of acute ischemia. Echocardiogram then completed showing a normal EF of 55-60% with mild to moderately enlarged right ventricle and mild pulmonary hypertension. Bilateral lower extremity Dopplers completed showing a right popliteal vein DVT proximally as well as another right popliteal vein distally, left leg showing chronic nonoccluding wall changes not ed in the upper and mid femoral vein and left popliteal vein. Physical exam: Vital signs reviewed and stable. General: Nontoxic, no distress and appears stated age. Derm: Skin warm and dry, normal coloration for ethnicity. Head: Atraumatic, normocephalic and symmetric. Eyes: EOMs intact, no lid lag, and anicteric sclera Mouth: no lip lesions, mucus membranes moist Cardiovascular: regular rate and rhythm with normal S1S2, no murmur, gallop, or rub. Positive posterior tibial pulses bilaterally, and cap refill < 2 seconds. Lungs: Respirations even, regular, and unlabored on 4 L O2 via nasal cannula.. L ungs CTA bilaterally, no rhonchi, no rales, no wheezing, and no accessory muscle usage. Abdominal: soft, nontender to palpation, no guarding, no appreciable organomegaly Ext: ROM intact. No gross muscle atrophy, 1+ pitting edema to left lower extremity and 2+ pitting edema to right lower extremity. no contractures Neuro: Speech clear, face symmetrical and CN II-XII grossly intact with no noted focal neuro deficits Psych: Alert and oriented to person, place, time, and situation. Appropriate and pleasant affect. Assessment and Plan of Care: Acute bilateral pulmonary emboli -CTA of chest completed at [facility] reportedly revealing acute bilateral pulmonary embolisms with large clot burden though no saddle pulmonary emboli . -Echocardiogram then completed showing a normal EF of 55-60% with mild to moderately enlarged right ventricle and mild pulmonary hypertension. -Bilateral lower extremity Dopplers completed showing a right popliteal vein DVT proximally as well as another right popliteal vein distally, left leg showing chronic nonoccluding wall changes noted in the upper and mid femoral vein and left popliteal vein. -Continue anticoagulation with heparin, pharmacy to dose -Continue to provide oxygenation as needed to maintain SpO2 equal to or greater than 90%. Patient currently requiring 4 L O2 via nasal cannula at rest. -Consult to Gen. surgery, pulmonology, and hematology. Appreciate recommendations. Acute DVTs of right popliteal vein -Continue anticoagulation with heparin, pharmacy to dose. Hypertension -Monitor vital signs and continue daily medication regimen with amlodipine and losartan. Hyperlipidemia -Monitor vital signs and continue daily medication regimen with fenofibrate. Hypothyroidism -Continue daily medication regimen with Synthroid. GERD -GI prophylaxis with with Protonix 40 mg IVP daily. BPH -Continue daily medication regimen with Flomax. CODE STATUS: Full code DVT prophylaxis: Heparin Discussed with: Patient and RN Anticipated discharge date: Clinical course to determine Anticipated discharge place: Home A total of 45 minutes was spent on the care of this complex patient more than 50% of the time was spent in counseling and care coordination. Objective - Vital Signs Vital signs: Vital Signs Temp 97.8 F 01/06/21 08:00 Pulse 74 01/06/21 08:00 Resp 18 01/06/21 08:00 BP 165/93 01/06/21 08:00 Pulse Ox 98 01/06/21 08:00 Intake & Output 01/05/21 01/06/21 01/06/21 18:59 06:59 18:59 Intake Total 0 Balance 0 Weight 117.934 kg Intake: Oral 0 Other: Voiding Method Toilet Toilet # Voids 1 1 # Bowel Movements 1 - Labs CBC & Chem 7: 01/06/21 09:09 01/06/21 09:09 Labs: Abnormal Lab Results - Last 24 Hours (Table) 07/22/21 07/22/21 Range/Units 09:09 09:09 APTT 52.5 H (22.0-30.0) sec Potassium 3.4 L (3.5-5.1) mmol/L Chloride 114 H (98-107) mmol/L Creatinine 0.65 L (0.66-1.25) mg/dL Glucose 116 H (74-99) mg/dL Total Protein 5.4 L (6.3-8.2) g/dL Albumin 3.1 L (3.5-5.0) g/dL
--- NOTE | 2021-01-06 12:15 | US ---
EXAMINATION TYPE: US venous doppler duplex LE DATE OF EXAM: 01/06/2021 9:03 AM COMPARISON: US CLINICAL HISTORY: DVT. PE, prior chronic venous changes SIDE PERFORMED: Bilateral TECHNIQUE: The lower extremity deep venous system is examined utilizing real time linear array sonog sanjiv with graded compression, doppler sonography and color-flow sonography. VESSELS IMAGED: Common Femoral Vein Deep Femoral Vein Greater Saphenous Vein * Femoral Vein Popliteal Vein Small Saphenous Vein * Proximal Calf Veins (* superficial vessels) Right Leg: Right popliteal vein DVT is noted and into one of 2 upper calf veins. DVT at right distal PTV. Left Leg: Chronic non occluding wall changes are noted in upper and mid Femoral Vein, and in Left Po pliteal Vein. Tech findings reported to patient's RNRachel, at exam's end. IMPRESSION: Right Leg: Right popliteal vein DVT is noted and into one of 2 upper calf veins. DVT at right distal PTV. Left Leg: Chronic non occluding wall changes are noted in upper and mid Femoral Vein, and in Left Po pliteal Vein. Tech findings reported to patient's RNRachel, at exam's end.
--- NOTE | 2021-01-06 13:20 | P.CNPUL ---
History of Present Illness Consult date: 01/06/21 Requesting physician: Pretty Burkett Reason for consult: dyspnea, pulmonary embolism Chief complaint: Shortness of breath History of present illness: This is a very pleasant 70-year-old male patient with a history of chronic back pain, diverticulosis, hypertension, hyperlipidemia, hypothyroidism, neuropathy of the lower extremities. He also has a previous history of pulmonary embolism in 2019 treated for 9 months with Xarelto and subsequently stopped. He had presented to [facility] yesterday with complaints of chest discomfort and shortness of breath. CT angiogram revealed bilateral pulmonary embolism with significant clot burden though no saddle pulmonary embolism. He was transferred here for further evaluation and treatment. He is seen today in consultation on the selective care unit. He is been initiated on a heparin drip. He has 0.9 normal saline at 20 miles per hour. He is currently requiring oxygen at 4 L/m per nasal cannula to maintain O2 saturations in the 90s. He is currently resting in bed. Awake and alert in no acute distress. Breathing a bit easier today compared to yesterday. No worsening shortness of breath, cough or congestion. No hemoptysis. He remains hemodynamically stable. White count 6.8. Hemoglobin 14.3. Platelets 182. Sodium 144. Potassium 3.4. Chloride 114. Creatinine 0.65. Troponins negative 2. Mora virus not detected. Echocardiogram reveals normal left ventricular size and function. Mild to moderately enlarged right ventricle. Venous Dopplers are positive for a right popliteal vein DVT and DVT of the right distal PTB. There is chronic occluding wall changes noted in the mid femoral vein on the left. He is being evaluated by vascular surgery for possible EKOS. Review of Systems REVIEW OF SYSTEMS: CONSTITUTIONAL: Denies any recent significant weight loss or weight gain. EYES: Denies change in vision. EARS, NOSE, MOUTH, THROAT: Denies headaches, denies sore throat. CARDIOVASCULAR: Positive for chest pain, no palpitations or syncopal episodes. RESPIRATORY: Positive for shortness of breath, cough, congestion no hemoptysis. GASTROINTESTINAL: Denies change in appetite, denies abdominal pain GENITOURINARY: Denies hematuria, denies infections. MUSKULOSKELETAL: Denies pain, denies swelling. INTEGUMENTARY: Denies rash, denies eczema. NEUROLOGICAL: Denies recent memory loss, no recent seizure activity. PSYCHIATRIC: Denies anxiety, denies depression. HEMATOLOGIC/LYMPHATIC: Denies anemia, denies enlarged lymph nodes. Past Medical History Past Medical History: Chest Pain / Angina, GERD/Reflux, Hyperlipidemia, Hypertension, Osteoarthritis (OA), Pneumonia, Pulmonary Embolus (PE), Sleep Apnea/CPAP/BIPAP, Thyroid Disorder Additional Past Medical History / Comment(s): chronic lower backpain, DJD, neuropathy bilateral legs, diverticulosis,. PE (diagnosed 07/28/2018), restless leg syndrome, no cpap used, History of Any Multi-Drug Resistant Organisms: None Reported Past Surgical History: Adenoidectomy, Breast Surgery, Cholecystectomy, Heart Catheterization, Joint Replacement, Orthopedic Surgery, Tonsillectomy Additional Past Surgical History / Comment(s): L breast benign lumpectomy, 2 lumpectomy left leg, R shoulder surgery -supraspinatus, bilateral knees unicompartmental replacements, colonoscopy, vasectomy with reversal.left thumb partial amputaion, orchiectomy (04/2016) Past Anesthesia/Blood Transfusion Reactions: No Reported Reaction, Unable to Obtain Additional Past Anesthesia/Blood Transfusion Reaction / Comment(s): adopted-no family hx Past Psychological History: No Psychological Hx Reported Additional Psychological History / Comment(s): , Smoking Status: Never smoker Past Alcohol Use History: None Reported Additional Past Alcohol Use History / Comment(s): Pt used to drink socially but has not drank alcohol since April 1998. Past Drug Use History: None Reported - Past Family History Father Family Medical History: No Reported History Additional Family Medical History / Comment(s): Pt adopted and does not know family history. Medications and Allergies Home Medications Medication Instructions Recorded Confirmed Type Folic Acid 0.4 mg PO QAM 07/19/15 01/06/21 History Pramipexole Di-HCl [Mirapex] 0.5 mg PO HS 07/19/15 01/06/21 History Fenofibrate Nanocrystallized 160 mg PO QAM 05/17/16 01/06/21 History [Triglide] Levothyroxine Sodium [Synthroid] 75 mcg PO QAM 10/11/17 01/06/21 History Celecoxib [CeleBREX] 200 mg PO BID 07/28/18 01/06/21 History Gabapentin 600 mg PO BID 07/28/18 01/06/21 History Aspirin 81 cap PO DAILY 10/08/20 01/06/21 History Losartan [Cozaar] 50 mg PO DAILY 01/06/21 01/06/21 History Ondansetron [Zofran ODT] 4 mg PO Q8HR PRN 01/06/21 01/06/21 History Tamsulosin HCl [Flomax] 0.4 mg PO DAILY 01/06/21 01/06/21 History amLODIPine [Norvasc] 10 mg PO DAILY 01/06/21 01/06/21 History traMADol HCL [Ultram] 50 mg PO TID PRN 01/06/21 01/06/21 History Allergies Allergy/AdvReac Type Severity Reaction Status Date / Time No Known Allergies Allergy Verified 01/06/21 08:55 Physical Exam Vitals: Vital Signs Temp Pulse Pulse Resp BP BP Pulse Ox 01/06/21 12:00 98.1 F 71 16 157/93 99 01/06/21 08:00 97.8 F 74 18 165/93 98 01/06/21 06:21 94 26 H 01/06/21 05:52 94 26 H 130/101 95 01/06/21 04:22 79 18 146/78 99 01/06/21 03:13 18 01/06/21 02:25 97.9 F 79 18 148/99 98 Intake and Output 01/05/21 01/06/21 01/06/21 22:59 06:59 14:59 Intake Total 0 Balance 0 Intake: Oral 0 Other: Voiding Method Toilet Toilet # Voids 1 1 # Bowel Movements 1 Weight 117.934 kg GENERAL EXAM: Alert, very pleasant 70-year-old gentleman, on 4 L nasal cannula, fairly comfortable in no apparent distress. HEAD: Normocephalic. EYES: Normal reaction of pupils, equal size. NOSE: Clear with pink turbinates. THROAT: No erythema or exudates. NECK: No masses, no JVD. CHEST: No chest wall deformity. LUNGS: Equal air entry with no crackles, wheeze, rhonchi or dullness. CVS: S1 and S2 normal with no audible murmur, regular rhythm. ABDOMEN: No hepatosplenomegaly, normal bowel sounds, no guarding or rigidity. SPINE: No scoliosis or deformity SKIN: No rashes CENTRAL NERVOUS SYSTEM: No focal deficits, tone is normal in all 4 extremities. EXTREMITIES: There is no peripheral edema. No clubbing, no cyanosis. Peripher al pulses are intact. Results - Laboratory Findings CBC and BMP: 01/06/21 09:09 01/06/21 09:09 PT/INR, D-dimer PT 10.8 sec (9.0-12.0) 01/06/21 09:09 INR 1.0 (<1.2) 01/06/21 09:09 Abnormal lab findings: Abnormal Labs 01/06/21 01/06/21 09:09 09:09 APTT 52.5 H Potassium 3.4 L Chloride 114 H Creatinine 0.65 L Glucose 116 H Total Protein 5.4 L Albumin 3.1 L - Diagnostic Findings Chest x-ray: image reviewed Assessment and Plan Assessment: 1 Acute hypoxemic respiratory failure secondary to acute pulmonary embolism with large clot burden 2 Acute right lower extremity DVT with some chronic occlusion of the left. 3 Prior history of PE, anticoagulated with Xarelto for approximately 9 months 4 History of chronic low back pain 6 Hypothyroidism 7 Obstructive sleep apnea 8 Diverticulosis 9 History of neuropathy in the bilateral lower extremities Plan: The patient was seen and evaluated by Dr. Partida CAT scan, chest x-ray, labs reviewed Dopplers with acute right DVT, chronic left DVT Continue with heparin drip for now If no surgical intervention planned; transition to factor X inhibitor Titrate down the FiO2 as tolerated We will continue to follow and make further recommendations based on his clinical status I, the cosigning physician, performed a history & physical examination of the patient. Lungs sounds are clear. Maintaining good O2 saturations in the 90s on 4 L/m per nasal cannula. I discussed the assessment and plan of care with my nurse practitioner, Tiffani Catherine. I attest to the above consultation as dictated by her. Time with Patient: Greater than 30
[2021-01-06] MEDS ORDERED: traMADol 50 MG TAB PO PRN (16:01)
[2021-01-06] MEDS: MELOXICAM 7.5 MG TAB PO SCH (20:39)
[2021-01-06] MEDS: GABAPENTIN 300 MG CAP PO SCH (20:39)
[2021-01-06] MEDS ORDERED: MELATONIN 5 MG TABLET PO ONE (21:46)
[2021-01-07] MEDS: HEPARIN SOD,PORK IN 0.45% NACL 25,000 UNIT in 0.45% NACL 1 250ML.BAG IV SCH (03:27)
[2021-01-07] MEDS: SODIUM CHLORIDE 0.9% 1,000 ML IV SCH (03:34)
[2021-01-07] MEDS ORDERED: LEVOTHYROXINE 75 MCG TAB PO SCH (06:30)
[2021-01-07 08:30] LABS: Basophils # (A) 0.1 k/uL (0-0.2); Basophils % (A) 1 %; Eosinophils # (A) 0.2 k/uL (0-0.7); Eosinophils % (A) 3 %; HCT 46.5 % (39.0-53.0); Lymphocytes # (A) 1.3 k/uL (1.0-4.8); Lymphocytes % (A) 20 %; MCH 29.9 pg (25.0-35.0); MCHC 32.2 g/dL (31.0-37.0); MCV 92.9 fL (80.0-100.0); Mean Platelet Volume 10.5; Monocytes # (A) 0.3 k/uL (0-1.0); Monocytes % (A) 5 %; Neutrophils # (A) 4.4 k/uL (1.3-7.7); Neutrophils % (A) 68 %; Platelet Count 163 k/uL (150-450); RBC 5.01 m/uL (4.30-5.90); RDW 13.7 % (11.5-15.5); WBC 6.4 k/uL (3.8-10.6)
[2021-01-07] MEDS ORDERED: ASPIRIN 81 MG PO SCH (09:00)
[2021-01-07] MEDS ORDERED: FOLIC ACID 1 MG TAB PO SCH (09:00)
[2021-01-07] MEDS ORDERED: FENOFIBRATE 160 MG TAB PO SCH (09:00)
[2021-01-07] MEDS ORDERED: TAMSULOSIN 0.4 MG CAP.ER.24H PO SCH (09:00)
[2021-01-07] MEDS: PANTOPRAZOLE 40 MG/10 ML VIAL IV SCH (09:02)
[2021-01-07 09:04] LABS: ALT 12 U/L (4-49); African American GFR (CKD) >90 (>60 ml/min/1.73 sqM); Albumin 3.3 g/dL (3.5-5.0); Anion Gap 5 mmol/L; Blood Urea Nitrogen 10 mg/dL (9-20); Carbon Dioxide 25 mmol/L (22-30); Chloride 113 mmol/L (98-107); Glucose 109 mg/dL (74-99); Non-African American GFR(CKD) >90 (>60 ml/min/1.73 sqM); Sodium 143 mmol/L (137-145); Total Bilirubin 0.4 mg/dL (0.2-1.3); Total Protein 5.8 g/dL (6.3-8.2)
[2021-01-07] MEDS: GABAPENTIN 300 MG CAP PO SCH (09:04)
[2021-01-07 09:05] LABS: Magnesium 1.9 mg/dL (1.6-2.3); Phosphorus 2.9 mg/dL (2.5-4.5); Potassium 3.7 mmol/L (3.5-5.1)
[2021-01-07 09:06] LABS: AST 22 U/L (17-59); Alkaline Phosphatase 46 U/L (38-126)
[2021-01-07] MEDS: amLODIPine 10 MG TAB PO SCH (09:27)
[2021-01-07] MEDS: MELOXICAM 7.5 MG TAB PO SCH (09:27)
[2021-01-07] MEDS: LOSARTAN 50 MG TAB PO SCH (09:27)
[2021-01-07 11:31] VITALS: RESP 20; TEMP 98.2
[2021-01-07] MEDS ORDERED: APIXABAN 5 MG TAB PO SCH (12:00)
--- NOTE | 2021-01-07 12:30 | CDI ---
Documentation Clarification Form Date: 01/07/2021 12:14:06 PM From: Amalia Wei CCS, CCDS Admit Date: 01/06/2021 02:41:00 AM Patient Name: Leonid Carmona Visit Number: [id number] Discharge Date: ATTENTION: The Clinical Documentation Specialists (CDI) and [facility] Coding Staff appreciate your assistance in clarifying documentation. Please respond to the clarification below the line at the bottom and electronically sign. The CDI & [facility] Coding staff will review the response and follow-up if needed. Please note: Queries are made part of the Legal Health Record. If you have any questions, please contact the author of this message via ITS. Dr. Manjit Partida: The patient is admitted with acute bilateral Pulmonary Emboli with a history of a PE (07/28/2018) was on Xarelto for 9 months. Complaints were chest pain & Hypoxia. Per the 01/06 ECHO: Tricuspid regurgitation, Pulmonary Hypertension and RBBB. Additional clarification regarding the patient's clinical symptoms and diagnostic findings is requested. History/Risk Factors: PE, Hypertension, BPH, Hyperlipidemia, OA, Hypothyroid, Diverticulosis, Chronic low back pain, RLS. Clinical Indicators: Presented to the ED on 01/06 as a transfer from [facility] with Bilateral Pulmonary Embolisms, diagnosed on CT Angio Chest and elevated D Dimer. Complained of SOB, cough & chest pain with inspiration. 01/06 ED Clinical Impression: Bilateral PE 01/06 VS: T 97.9, P 79, R 18 - 26 (sob), BP 148/99, PO 98 4Lnc 01/06 LAB: APTT 52.5, K 3.4, Chloride 114, Creatinine 0.65, Glucose 116, Total Protein 5.4, Albumin 3.1 01/06 EKG: R 76 sinus rhythm w/1st degree AV block, RBBB, Abnormal EKG 01/06 Radiology: ([facility]): CT Angio Chest: Bilateral PE Treatment: O2 4Lnc, IV Na Cl 1,000 mls @ 999 mls/hr q1Hr, IV Morphine, IV Heparin. 01/07: po Eliquis. Please the following diagnosis: [ ] Acute Cor pulmonale due to pulmonary embolism [ ] Acute on Chronic pulmonale due to (please specify): [ ] Chronic Cor pulmonale due to Pulmonary Hypertension [ ] Chronic Cor pulmonale due to (please specify): [ ] Unable to determine [ ] Other, please specify Template Last Revised: August 2020) Unable to determine MTDD
[2021-01-07 12:42] VITALS: BP 110/72; PULSE 81
--- NOTE | 2021-01-07 13:24 | P.DS ---
Providers Date of admission: 01/06/21 02:41 Expected date of discharge: 01/07/21 Attending physician: Pretty Burkett MD Consults: 01/06/21 02:44 Consult Physician Routine Consulting Provider: Troy Virgen Consult Reason/Comments: PE Do you want consulting provider notified?: Yes Consult Physician Routine Consulting Provider: Khurram Gonsales Consult Reason/Comments: PE Do you want consulting provider notified?: Yes 01/06/21 03:07 Consult Physician Routine Consulting Provider: Portia Beasley Consult Reason/Comments: echo Do you want consulting provider notified?: Yes Primary care physician: [place] [facility] Course: Discharge Diagnosis: Bilateral pulmonary embolism Acute right lower extremity DVT Acute hypoxic respiratory failure Hypothyroidism [place] Chronic back pain Mild to moderate enlargement of the right ventricle Hypertension Dyslipidemia Hospital Course: Patient is a 70-year-old male with a past medical history of CAD, hypertension, hyperlipidemia, BPH, hypothyroidism ,GERD and previous history of pulmonary embolism diagnosed approximately 4-5 years ago requiring anticoagulation with Xarelto which was later discontinued about 6 months later. He presented to our facility as a transfer from [facility] where he presented with a chief complaint of shortness of breath progressively worsening over a two-week period and rapidly worsening over the past 3-4 days. At [facility], the patient underwent a CTA of his chest reportedly revealing acute bilateral pulmonary embolisms with large clot burden though no saddle pulmonary emboli . Patient was transferred to our facility for continued medical management. Upon arrival to our facility and EKG was completed revealing sinus rhythm with a first-degree AV block with CO interval of 234 ms and a right bundle branch block, no noted T wave or ST abnormality showing no signs of acute ischemia. Echocardiogram then completed showing a normal EF of 55-60% with mild to moderately enlarged right ventricle and mild pulmonary hypertension. Bilateral lower extremity Dopplers completed showing a right popliteal vein DVT proximally as well as another right popliteal vein distally, left leg showing chronic nonoccluding wall changes noted in the upper and mid femoral vein and left popliteal vein. He was seen by vascular surgery and no indication for glucose at this time. He was seen by pulmonary who recommended outpatient follow-up. He was no longer requiring oxygen was able to ambulate without difficulty. He was determined stable for discharge home. Follow-up: Dr. Yang in 2-3 days, Dr. Partida in 2-3 days, and Dr. Menjivar in 4 weeks. Take medications as prescribed. Patient seen and examined at bedside. Breathing is much better, dyspnea is almost fully resolve, no chest pain, no nausea or vomiting. Feeling well. We had a long discussion about the need to follow-up with hematology [place] for lifelong anticoagulation. He understands and has been on anticoagulation in the past. All questions are answered. Vital signs reviewed and stable. General: non toxic, no distress, kyphosis, appears older than stated age Derm: warm, dry Head: atraumatic, normocephalic, symmetric Eyes: EOMI, no lid lag, anicteric sclera Mouth: no lip lesion, mucus membranes moist Cardiovascular: S1S2 reg, no murmur, positive posterior tibial pulse bilateral, Lungs: Decreased breath sounds bilateral bases, no rhonchi, no rales , no accessory muscle use Abdominal: soft, nontender to palpation, no guarding, no appreciable organomegaly Ext: no gross muscle atrophy, no edema, no contractures Neuro: CN II-XI grossly intact, no focal neuro deficits Psych: Alert, oriented, appropriate affect A total of 35 minutes of time were spent preparing this complex discharge summary . Patient Condition at Discharge: Stable Plan - Discharge Summary Discharge Rx Participant: Yes New Discharge Prescriptions: New Apixaban [Eliquis Starter Pack (for VTE)] 0 mg PO DIRECTED 30 Days #1 pack Continue Folic Acid 0.4 mg PO QAM Pramipexole Di-HCl [Mirapex] 0.5 mg PO HS Fenofibrate Nanocrystallized [Triglide] 160 mg PO QAM Levothyroxine Sodium [Synthroid] 75 mcg PO QAM Celecoxib [CeleBREX] 200 mg PO BID Gabapentin 600 mg PO BID Losartan [Cozaar] 50 mg PO DAILY Tamsulosin HCl [Flomax] 0.4 mg PO DAILY Ondansetron [Zofran ODT] 4 mg PO Q8HR PRN PRN Reason: Nausea amLODIPine [Norvasc] 10 mg PO DAILY traMADol HCL [Ultram] 50 mg PO TID PRN PRN Reason: Pain Discontinued Aspirin 81 cap PO DAILY Discharge Medication List Folic Acid 0.4 mg PO QAM 07/19/15 [History] Pramipexole Di-HCl [Mirapex] 0.5 mg PO HS 07/19/15 [History] Fenofibrate Nanocrystallized [Triglide] 160 mg PO QAM 05/17/16 [History] Levothyroxine Sodium [Synthroid] 75 mcg PO QAM 10/11/17 [History] Celecoxib [CeleBREX] 200 mg PO BID 07/28/18 [History] Gabapentin 600 mg PO BID 07/28/18 [History] Losartan [Cozaar] 50 mg PO DAILY 01/06/21 [History] Ondansetron [Zofran ODT] 4 mg PO Q8HR PRN 01/06/21 [History] Tamsulosin HCl [Flomax] 0.4 mg PO DAILY 01/06/21 [History] amLODIPine [Norvasc] 10 mg PO DAILY 01/06/21 [History] traMADol HCL [Ultram] 50 mg PO TID PRN 01/06/21 [History] Apixaban [Eliquis Starter Pack (for VTE)] 0 mg PO DIRECTED 30 Days #1 pack 01/07/21 [Rx] Follow up Appointment(s)/Referral(s): Devaughn Menjivar MD [STAFF PHYSICIAN] - 1 Week Nicolás Mir MD [Primary Care Provider] - 1-2 days Manjit Partida DO [Doctor of Osteopathic Medicine] - 1 Week Patient Instructions/Handouts: Pulmonary Embolism (DC) Activity/Diet/Wound Care/Special Instructions: Copay for Eliquis is $33 and a 1st free month coupon will be applied at [facility]. Discharge Disposition: HOME SELF-CARE
--- NOTE | 2021-01-07 13:51 | P.PN ---
Subjective Progress Note Date: 01/07/21 Principal diagnosis: Dyspnea, pulmonary embolism This is a very pleasant 70-year-old male patient with a history of chronic back pain, diverticulosis, hypertension, hyperlipidemia, hypothyroidism, neuropathy of the lower extremities. He also has a previous history of pulmonary embolism in 2019 treated for 9 months with Xarelto and subsequently stopped. He had presented to [facility] yesterday with complaints of chest discomfort and shortness of breath. CT angiogram revealed bilateral pulmonary embolism with significant clot burden though no saddle pulmonary embolism. He was transferred here for further evaluation and treatment. He is seen today in consultation on the selective care unit. He is been initiated on a heparin drip. He has 0.9 normal saline at 20 miles per hour. He is currently requiring oxygen at 4 L/m per nasal cannula to maintain O2 saturations in the 90s. He is currently resting in bed. Awake and alert in no acute distress. Breathing a bit easier today compared to yesterday. No worsening shortness of breath, cough or congestion. No hemoptysis. He remains hemodynamically stable. White count 6.8. Hemoglobin 14.3. Platelets 182. Sodium 144. Potassium 3.4. Chloride 114. Creatinine 0.65. Troponins negative 2. Mora virus not detected. Echocardiogram reveals normal left ventricular size and function. Mild to moderately enlarged right ventricle. Venous Dopplers are positive for a right popliteal vein DVT and DVT of the right distal PTB. There is chronic occluding wall changes noted in the mid femoral vein on the left. He is being evaluated by vascular surgery for possible EKOS. On 01/07/2021 patient seen in follow-up on selective care unit, he is awake and alert, resting comfortably in bed, breathing comfortably, he is currently on 4 L of oxygen, with pulse ox of 97%, currently on room air, blood pressure was elevated this morning, currently is better controlled, and is at 110/72. She remains on 0.9 normal seen at 20 ML per hour, and heparin infusion at weight- based protocol. he was seen in consultation by vascular surgery and there is no plans for EKOS at this time, no complaints of chest pain, no hemoptysis. Lower extremity Dopplers showed a right popliteal DVT and one of her 2 upper calf veins. Left leg showed chronic nonoccluding wall changes in upper and mid femoral vein and in the left popliteal vein. Echocardiogram showed moderate concentric LVH, EF of 55-60%, mild to moderately enlarged right ventricle, right-sided pressure is 35.5 mmHg. Objective - Vital Signs Vital signs: Vital Signs Temp 98.2 F 01/07/21 08:00 Pulse 81 01/07/21 12:00 Resp 20 01/07/21 12:00 BP 110/72 01/07/21 12:00 Pulse Ox 95 01/07/21 12:00 Intake & Output 01/06/21 01/07/21 01/07/21 18:59 06:59 18:59 Intake Total 1363.414 330 476 Output Total 600 Balance 1363.414 -270 476 Weight 118.3 kg Intake: Intake, IV Titration 443.414 330 Amount Heparin Sod,Pork in 0.45% 243.414 250 NaCl 25,000 unit In 0.45 % NaCl 1 250ml.bag @ 18 UNITS/KG/HR 21.228 mls/hr IV .[id number] MIGUE Rx#: [id number] Sodium Chloride 0.9% 1, 200 80 000 ml @ 20 mls/hr IV . Q24H MIGUE Rx#:[id number] Oral 920 476 Output: Urine 600 Other: Voiding Method Toilet Toilet Toilet # Voids 2 1 # Bowel Movements 1 - Exam GENERAL EXAM: Alert, obese, pleasant, awake, 70-year-old white male, on room air, comfortable in no apparent distress. HEAD: Normocephalic/atraumatic. EYES: Normal reaction of pupils, equal size. Conjunctiva pink, sclera white. NOSE: Clear with pink turbinates. THROAT: No erythema or exudates. NECK: No masses, no JVD, no thyroid enlargement, no adenopathy. CHEST: No chest wall deformity. Symmetrical expansion. LUNGS: Equal air entry with no crackles, wheeze, rhonchi or dullness. CVS: Regular rate and rhythm, normal S1 and S2, no gallops, no murmurs, no rubs ABDOMEN: Soft, nontender. No hepatosplenomegaly, normal bowel sounds, no guarding or rigidity. EXTREMITIES: No clubbing, mild bilateral lower extremity edema, no cyanosis, 2+ pulses and upper and lower extremities. MUSCULOSKELETAL: Muscle strength and tone normal. SPINE: No scoliosis or deformity SKIN: No rashes CENTRAL NERVOUS SYSTEM: Alert and oriented -3. No focal deficits, tone is norm al in all 4 extremities. PSYCHIATRIC: Alert and oriented -3. Appropriate affect. Intact judgment and insight. - Labs CBC & Chem 7: 01/07/21 07:36 01/07/21 07:36 Labs: Abnormal Lab Results - Last 24 Hours (Table) 01/07/21 01/07/21 Range/Units 07:36 07:36 APTT 63.1 H (22.0-30.0) sec Chloride 113 H (98-107) mmol/L Creatinine 0.51 L (0.66-1.25) mg/dL Glucose 109 H (74-99) mg/dL Total Protein 5.8 L (6.3-8.2) g/dL Albumin 3.3 L (3.5-5.0) g/dL Assessment and Plan Plan: Assessment: #1. Acute hypoxic respiratory failure secondary to acute pulmonary embolism with large clot burden, not a candidate for EKOS #2. Acute right lower extremity DVT and chronic DVT in the left leg #3. Prior history of pulmonary embolism, anticoagulated with her multiple for approximately 9 months #4. History of chronic low back pain #5. Hypothyroidism #7. Obstructive sleep apnea #8. Diverticulosis #9. History of neuropathy in bilateral lower extremities Plan: We'll start the patient on oral anticoagulation in the form of Eliquis he will require lifelong anticoagulation for recurrent pulmonary embolism Echocardiogram, lower extremity Dopplers reviewed Hemodynamically patient is stable, currently he is on room air breathing comfortably He is being discharged home today We'll see the patient in follow-up in Dr. Partida in 7-10 days I performed a history & physical examination of the patient and discussed their management with my nurse practitioner, Stacie Brewer. I reviewed the nurse practitioner's note and agree with the documented findings and plan of care. Lung sounds are positive for diminished breath sounds. The findings and the impression was discussed with the patient. I attest to the documentation by the nurse practitioner. Time with Patient: Less than 30
--- NOTE | 2021-01-07 14:52 | P.PN ---
Subjective Progress Note Date: 01/07/21 This is a pleasant 70-year-old gentleman with past medical history significant for nonobstructive CAD, hypertension, obesity, bilateral small pulmonary emboli diagnosed about 4 or 5 years ago at which time he was treated with anticoagulation for about 9 months and stopped on his own. He follows in the office with Dr. Tam. Patient was admitted to the hospital this admission with worsening shortness of breath over the past 2 weeks which progressively got worse over a couple days. He initially presented to [facility]. He was found to be hypoxic with an SpO2 of 88%. D-dimer was elevated and a computed tomography scan was done which showed acute bilateral pulmonary embolism, large clot burden, no saddle pulmonary embolism, no aortic aneurysm and no dissection. He was transferred here for further evaluation and treatment. We were asked see the patient in consultation for evaluation of echocardiogram. Echocardiogram with Doppler study showed moderate LVH with normal LV systolic function with an ejection fraction between 55-60%, mild to moderately enlarged RV, mild TR and mild pulmonary hypertension. Venous duplex study of the lower extremities showed right popliteal vein DVT and into one of 2 upper calf veins, DVT at right distal PTV, chronic nonoccluding wall changes n oted in the upper and mid femoral vein of the left leg and in the left popliteal vein. Patient was seen and evaluated by vascular surgery and felt not to be a candidate for any type of surgical intervention for PE. He currently is receiving IV heparin per protocol. Upon examination the patient is resting comfortably in bed. He feels his breathing has improved significantly. He complains of a cough but no chest pain. Complains of some lower extremity edema but has been ongoing for quite some time. He denies any orthopnea or PND. Objective - Vital Signs Vital signs: Vital Signs Temp 98.2 F 01/07/21 08:00 Pulse 70 01/07/21 08:00 Resp 20 01/07/21 08:00 BP 189/89 01/07/21 08:00 Pulse Ox 97 01/07/21 08:00 Intake & Output 01/06/21 01/07/21 01/07/21 18:59 06:59 18:59 Intake Total 1363.414 330 118 Output Total 600 Balance 1363.414 -270 118 Weight 118.3 kg Intake: Intake, IV Titration 443.414 330 Amount Heparin Sod,Pork in 0.45% 243.414 250 NaCl 25,000 unit In 0.45 % NaCl 1 250ml.bag @ 18 UNITS/KG/HR 21.228 mls/hr IV .[id number] MIGUE Rx#: [id number] Sodium Chloride 0.9% 1, 200 80 000 ml @ 20 mls/hr IV . Q24H MIGUE Rx#:[id number] Oral 920 118 Output: Urine 600 Other: Voiding Method Toilet Toilet Toilet # Voids 2 1 # Bowel Movements 1 - Exam PHYSICAL EXAMINATION: HEENT: Head is atraumatic, normocephalic. Pupils equal, round. Neck is supple. There is no elevated jugular venous pressure. HEART EXAMINATION: Heart sounds regular, S1 and S2 normal. No murmur or gallop heard. CHEST EXAMINATION: Lungs saavedra diminished air entry bilaterally. No chest wall tenderness is noted on palpation or with deep breathing. ABDOMEN: Soft, nontender. Bowel sounds are heard. No organomegaly noted. EXTREMITIES: 2+ peripheral pulses with evidence of mild to moderate peripheral edema and calf tenderness noted. NEUROLOGIC patient is awake, alert and oriented x3. . - Labs CBC & Chem 7: 01/07/21 07:36 01/07/21 07:36 Labs: Abnormal Lab Results - Last 24 Hours (Table) 01/07/21 01/07/21 Range/Units 07:36 07:36 APTT 63.1 H (22.0-30.0) sec Chloride 113 H (98-107) mmol/L Creatinine 0.51 L (0.66-1.25) mg/dL Glucose 109 H (74-99) mg/dL Total Protein 5.8 L (6.3-8.2) g/dL Albumin 3.3 L (3.5-5.0) g/dL Assessment and Plan Assessment: #1 acute bilateral pulmonary emboli #2 nonobstructive CAD #3 hypertension #4 obesity #5 history of bilateral small pulmonary emboli diagnosed about 4 or 5 years ago at which time he was anticoagulated but no workup was done by hematology Plan: From cardiology's perspective medications were reviewed and will continue the same. Patient should be transitioned to oral anticoagulants today. We would recommend workup by hematology. At this time we will follow the patient on an as-needed basis. Please do not hesitate to contact us with questions. HUMAN RESOURCE MANAGEMENT INSTRUCTOR note has been reviewed, I agree with a documented findings and plan of care. Patient was seen and examined.
--- NOTE | 2021-01-07 17:13 | P.PN ---
Subjective Progress Note Date: 01/07/21 Patient seen and examined. Overall feeling better as far as his breathing. Tolerating heparin drip this morning Objective - Vital Signs Vital signs: Vital Signs Temp 98.2 F 01/07/21 08:00 Pulse 81 01/07/21 12:00 Resp 20 01/07/21 12:00 BP 110/72 01/07/21 12:00 Pulse Ox 95 01/07/21 12:00 Intake & Output 01/06/21 01/07/21 01/07/21 18:59 06:59 18:59 Intake Total 1363.414 330 476 Output Total 600 Balance 1363.414 -270 476 Weight 118.3 kg Intake: Intake, IV Titration 443.414 330 Amount Heparin Sod,Pork in 0.45% 243.414 250 NaCl 25,000 unit In 0.45 % NaCl 1 250ml.bag @ 18 UNITS/KG/HR 21.228 mls/hr IV .[id number] MIGUE Rx#: [id number] Sodium Chloride 0.9% 1, 200 80 000 ml @ 20 mls/hr IV . Q24H MIGUE Rx#:[id number] Oral 920 476 Output: Urine 600 Other: Voiding Method Toilet Toilet Toilet # Voids 2 1 # Bowel Movements 1 - Exam Gen. a pleasant cooperative male in no acute distress. HEENT is normal cephalic, atraumatic, excellent motion intact. Heart appears regular. Lungs are clear. On oxygen. Abdomen is soft. No evidence of bruising or bleeding. Normal mood and affect. Cranial nerves II through XII grossly intact - Labs CBC & Chem 7: 01/07/21 07:36 01/07/21 07:36 Labs: Abnormal Lab Results - Last 24 Hours (Table) 01/07/21 01/07/21 Range/Units 07:36 07:36 APTT 63.1 H (22.0-30.0) sec Chloride 113 H (98-107) mmol/L Creatinine 0.51 L (0.66-1.25) mg/dL Glucose 109 H (74-99) mg/dL Total Protein 5.8 L (6.3-8.2) g/dL Albumin 3.3 L (3.5-5.0) g/dL Assessment and Plan Assessment: Bilateral PE History of DVT Plan: At this point patient can be transitioned to oral anticoagulation. Would consider outpatient hematology workup for evaluation of coagulopathy.
[2021-01-08] MEDS ORDERED: PANTOPRAZOLE 40 MG TABLET PO SCH (07:30)
== END 2021-01-07 14:47 | disposition home or self-care (01) | DRG 175 ==
LOC: EC 02:24 → 3SCARD 02:41
PROVIDERS: ADMIT Internal Medicine; ATTEND Internal Medicine
DX: I26.99 Other pulmonary embolism without acute cor pulmonale (principal); J96.01 Acute respiratory failure with hypoxia; I82.431 Acute embolism and thrombosis of right popliteal vein; I82.502 Chronic embolism and thrombosis of unspecified deep veins of left lower extremity; Z20.822 Contact with and (suspected) exposure to COVID-19; M54.5 Low back pain; G89.29 Other chronic pain; E66.9 Obesity, unspecified; K21.9 Gastro-esophageal reflux disease without esophagitis; E78.5 Hyperlipidemia, unspecified; E03.9 Hypothyroidism, unspecified; G25.81 Restless legs syndrome; G47.33 Obstructive sleep apnea (adult) (pediatric); I11.9 Hypertensive heart disease without heart failure; I27.20 Pulmonary hypertension, unspecified; M19.90 Unspecified osteoarthritis, unspecified site; N40.0 Benign prostatic hyperplasia without lower urinary tract symptoms; G62.9 Polyneuropathy, unspecified; I44.0 Atrioventricular block, first degree; I45.10 Unspecified right bundle-branch block; I25.10 Atherosclerotic heart disease of native coronary artery without angina pectoris; Z96.643 Presence of artificial hip joint, bilateral; Z79.82 Long term (current) use of aspirin; Z79.890 Hormone replacement therapy; Z79.899 Other long term (current) drug therapy; Z86.711 Personal history of pulmonary embolism; Z79.1 Long term (current) use of non-steroidal anti-inflammatories (NSAID); Z79.01 Long term (current) use of anticoagulants; Z89.012 Acquired absence of left thumb
CPT/HCPCS: 80053; 83735; 84100; 84484; 85025; 85610; 85730; 87635; 93005; 93306; 93970; 99285

== ENCOUNTER → 2021-04-26 | Outpatient (CLI) | payer MEDICARE, OTHER ==
--- NOTE | 2021-04-26 12:38 | MR ---
EXAMINATION TYPE: MR lumbar spine wo con DATE OF EXAM: 04/26/2021 COMPARISON: NONE HISTORY: Herniated lumbar disc, spinal stenosis, spondylolisthesis, and pain. TECHNIQUE: Multiplanar, multisequence imaging of the lumbar spine is performed without IV contrast. FINDINGS: Sagittal images of the lumbar spine show vertebral body heights and alignment to appear sat isfactory. Multilevel disc desiccation is present. [id number] disc space narrowing with heterog eneous Modic type I and type II endplate changes at L5-S1 level. Posterior annular tear. The conus m edullaris is normal in position and signal ending mid L1 level. There is a large hemangioma involving L1 vertebra. Heterogeneous Modic type II endplate changes at the S2-S3 level. Axial images beginning labeled T11-T12 level which shows broad-based posterior disc protrusion efface s the anterior thecal sac and mild facet arthropathy and ligament flavum hypertrophy effacing posteri or lateral thecal sac on image 32. Axial images at T12-L1 level show focal right paracentral disc protrusion mildly effacing the anterio r thecal sac on image 28. Patent bilateral neural foramina. Axial images at L1-L2 level appear within normal limits. Axial images at the L2-L3 level show mild broad disc bulge with central disc protrusion component eff acing the anterior thecal sac. There are patent bilateral neural foramina. Axial images at L3-L4 level appear within normal limits. Axial images L4-L5 level show mild/moderate facet arthropathy effacing posterior lateral thecal sac. There is moderate broad disc bulge mildly effacing the anterior thecal sac. There is mild bilateral i nferior neural foraminal narrowing. Axial images at L5-S1 level show mild/moderate facet arthropathy bilaterally. There is focal central disc protrusion minimally effacing anterior thecal sac. There is mild/moderate left-sided inferior ne ural foraminal narrowing. Right-sided neural foramen is patent. There is partial visualization of T2 hyperintense lesion lower pole left kidney felt to reflect thin- walled exophytic cyst. A exophytic lesion lower pole right kidney has less T2 hyperintensity and incr eased T1 hypointensity, suspect proteinaceous cyst. Advise renal ultrasound follow-up to confirm due to nonsimple cyst. IMPRESSION: Multilevel degenerative changes in the lumbar spine as detailed above. Nonsimple right re nal cyst partially imaged. Follow-up advised.
== END | disposition home or self-care (01) ==
LOC: RADMRIMAIN 10:22
PROVIDERS: ATTEND Orthopaedic Surgery Orthopaedic Surgery of the Spine
DX: M51.26 Other intervertebral disc displacement, lumbar region (principal); M51.36 Other intervertebral disc degeneration, lumbar region; M47.816 Spondylosis without myelopathy or radiculopathy, lumbar region
CPT/HCPCS: 72148

== ENCOUNTER → 2021-07-06 | Outpatient (CLI) | payer MEDICARE, OTHER ==
--- NOTE | 2021-07-06 14:09 | XR ---
EXAMINATION TYPE: XR chest 2V DATE OF EXAM: 07/06/2021 COMPARISON: 08/28/2019 INDICATION: History of pulmonary emboli TECHNIQUE: Single frontal view of the chest is obtained. FINDINGS: The heart size is normal. The pulmonary vasculature is normal. The lungs are clear. Some focal eventration of the right diaphragm is present. Otherwise, the diaphragms suggesting COPD. IMPRESSION: 1. No acute pulmonary process. 2. COPD
== END | disposition home or self-care (01) ==
LOC: RADXRMAIN 13:44
PROVIDERS: ATTEND Family Medicine
DX: J44.9 Chronic obstructive pulmonary disease, unspecified (principal); Z86.711 Personal history of pulmonary embolism
CPT/HCPCS: 71046

== ENCOUNTER → 2022-09-11 | Outpatient (CLI) | payer MEDICARE, OTHER ==
[2022-09-11 15:51] LABS: Partial Thromboplastin Time 23.7 sec (22.0-30.0); Prothrombin Time 10.8 sec (9.0-12.0)
[2022-09-11 22:24] LABS: Appearance,Urine Cloudy (Clear); Bilirubin,Urine Moderate (Negative); Blood,Urine Negative (Negative); Color,Urine Dark Yellow (Yellow); Ketones,Urine Trace mg/dL (Negative); Nitrite,Urine Negative (Negative); Specific Gravity,Urine 1.029 (1.001-1.030)
[2022-09-11 22:45] LABS: African American GFR (CKD) 98.5 (60.0-200.0); Albumin 3.7 g/dL (3.8-4.9); Albumin/Globulin Ratio 1.95 (1.60-3.17); Anion Gap 9.7 mmol/L (10.00-18.00); BUN/Creat Ratio 14.78 Ratio (12.00-20.00); Blood Urea Nitrogen 13.3 mg/dL (9.0-27.0); Calcium 9.2 mg/dL (8.7-10.3); Carbon Dioxide 25.3 mmol/L (20.0-27.5); Globulin 1.9 g/dL (1.6-3.3); Potassium 3.6 mmol/L (3.5-5.5); Total Bilirubin 0.4 mg/dL (0.30-1.20); Total Protein 5.6 g/dL (6.2-8.2)
[2022-09-11 23:04] LABS: Bacteria,Urine None Seen /HPF (None Seen); Mucus,Urine Present /LPF (None Seen)
[2022-09-11 23:24] LABS: HCT 45.5 % (39.6-50.0); HGB 14.6 g/dL (13.0-17.0); MCH 29.8 pg (27.0-32.0); MCHC 32.1 g/dL (32.0-37.0); MCV 92.9 fL (80.0-97.0); Mean Platelet Volume 13.4 fL (9.5-12.2); NRBC Per 100 WBC 0 /100 WBCS (0.0-0.0); Platelet Count 147 X 10*3/uL (140-440); RDW 14.8 % (11.5-14.5); WBC 6.47 X 10*3/uL (4.50-10.00)
== END | disposition home or self-care (01) ==
LOC: LABPAT 13:43
PROVIDERS: ATTEND Orthopaedic Surgery Hand Surgery
DX: Z01.818 Encounter for other preprocedural examination (principal); M75.41 Impingement syndrome of right shoulder; I45.10 Unspecified right bundle-branch block; I44.4 Left anterior fascicular block; I45.2 Bifascicular block; I49.1 Atrial premature depolarization; R94.31 Abnormal electrocardiogram [ECG] [EKG]
CPT/HCPCS: 80053; 81001; 85027; 85610; 85730; 87070; 93005

== ENCOUNTER → 2022-12-08 | Outpatient (CLI) | payer MEDICARE, OTHER ==
[2022-12-08 12:44] LABS: INR 1.3 (<1.2); Partial Thromboplastin Time 29.2 sec (22.0-30.0); Prothrombin Time 13.6 sec (9.0-12.0)
[2022-12-08 15:57] LABS: Basophils # (A) 0.04 X 10*3/uL (0.00-0.10); Basophils % (A) 0.5 %; Eosinophils # (A) 0.13 X 10*3/uL (0.04-0.35); Eosinophils % (A) 1.7 %; HCT 43.6 % (39.6-50.0); HGB 14.2 d/dL (12.0-15.0); Lymphocytes # (A) 1.19 X 10*3/uL (0.90-5.00); Lymphocytes % (A) 15.5 %; MCH 30.1 pg (27.0-32.0); MCHC 32.6 d/dL (32.0-37.0); MCV 92.6 FL (80.0-97.0); Mean Platelet Volume 12.6 FL (9.5-12.2); Monocytes # (A) 0.59 X 10*3/uL (0.20-1.00); Monocytes % (A) 7.7 %; NRBC Per 100 WBC 0 X 10*3/uL (0.00-0.01); Neutrophils # (A) 5.69 X 10*3/uL (1.80-7.70); Neutrophils % (A) 74.2 %; Platelet Count 157 X 10*3/uL (140-440); RBC 4.71 X 10*6/uL (4.40-5.60); WBC 7.67 X 10*3/uL (4.50-10.00)
[2022-12-08 21:22] LABS: ALT 21 U/L (10-49); AST 22 U/L (14-35); Albumin 3.4 d/dL (3.8-4.9); Alkaline Phosphatase 57 U/L (41-126); BUN/Creat Ratio 17.75 Ratio (12.00-20.00); Blood Urea Nitrogen 14.2 mg/dL (9.0-27.0); Calcium 9.3 mg/dL (8.7-10.3); Carbon Dioxide 22.9 mmol/L (21.6-31.8); Chloride 113 mmol/L (96-109); Glucose 99 mg/dL (70-110); Potassium 4.1 mmol/L (3.5-5.5); Sodium 145 mmol/L (135-145); Total Bilirubin 0.3 mg/dL (0.3-1.2); Total Protein 5.4 d/dL (6.2-8.2)
== END | disposition home or self-care (01) ==
LOC: LABWHC1 11:24
PROVIDERS: ATTEND Family Medicine
DX: Z01.812 Encounter for preprocedural laboratory examination (principal)
CPT/HCPCS: 36415; 80053; 85025; 85610; 85730

== ENCOUNTER 2023-02-23 09:18 | Day surgery (SDC) | payer MEDICARE, OTHER ==
[2023-02-22 10:06] VITALS: BMI 34.4
[2023-02-23] MEDS: LACTATED RINGERS 1,000 ML IV SCH ×2 (09:44→09:55)
[2023-02-23 10:03] VITALS: TEMP 97.2
[2023-02-23] MEDS ORDERED: PROPOFOL 10 MG/ML 20 ML VIAL IV ONE (10:28)
[2023-02-23] MEDS ORDERED: LIDOCAINE 2% INJ 20 MG/ML (2 ML VIAL) ONE (10:28)
--- NOTE | 2023-02-23 10:45 | P.PCN ---
Date of Procedure: 02/23/23 Procedure(s) Performed: BRIEF HISTORY: Patient is a 72-year-old, pleasant, white male scheduled for an upper endoscopy as a part of evaluation of epigastric fullness, nausea and progressive weight loss of 30 pounds in the last 3 months duration.. PROCEDURE PERFORMED: Esophagogastroduodenoscopy with biopsy. PREOPERATIVE DIAGNOSIS: Epigastric fullness, nausea and progressive weight loss of 30 pounds. IV sedation per anesthesia. PROCEDURE: After informed consent was obtained, the patient was brought into the endoscopy unit. IV sedation was administered by Anesthesia under continuous monitoring. Initially the Olympus GIF-140 video endoscope was inserted into the mouth. Esophagus intubated without any difficulty. It was gradually advanced into the stomach and duodenum and carefully examined. The bulb and the second part of the duodenum appeared normal. Biopsies were done from the duodenum to rule out celiac disease. The scope at this time was withdrawn to the stomach, adequately insufflated with air, and upon careful examination, mucosa of the antrum, had mild linear areas of erythema/diffuse gastritis and biopsies were done from this area. Mucosa of the body, cardia and the fundus appeared normal. The scope was then withdrawn into the esophagus. The GE junction was located at 41 cm from the incisors. The esophagus appeared normal. There were no erosions or ulcerations seen and the patient tolerated the procedure well. IMPRESSION: 1. Mild diffuse antral gastritis. 2. No evidence of esophagitis or peptic ulcer disease or gastric outlet obstruction. RECOMMENDATIONS: The findings of this examination were discussed with the patient as well as a his family. He was advised to follow with the biopsy results. Follow with Dr. Mir to evaluate further for progressive weight loss.
[2023-02-23 11:07] VITALS: BP 123/78; PULSE 62; RESP 20
== END 2023-02-23 11:35 ==
LOC: ORWHC2ENDO 09:18
PROVIDERS: ATTEND Internal Medicine Gastroenterology
DX: K29.50 Unspecified chronic gastritis without bleeding (principal); K29.80 Duodenitis without bleeding; K21.9 Gastro-esophageal reflux disease without esophagitis; D72.820 Lymphocytosis (symptomatic); I10 Essential (primary) hypertension; E78.5 Hyperlipidemia, unspecified; E07.9 Disorder of thyroid, unspecified; G47.33 Obstructive sleep apnea (adult) (pediatric); G62.9 Polyneuropathy, unspecified; I48.91 Unspecified atrial fibrillation; N40.0 Benign prostatic hyperplasia without lower urinary tract symptoms; Z79.01 Long term (current) use of anticoagulants; Z79.890 Hormone replacement therapy; Z79.899 Other long term (current) drug therapy; Z98.890 Other specified postprocedural states
CPT/HCPCS: 88305; 88342; 43239; J2704; J2001

== ENCOUNTER → 2023-07-20 | Outpatient (CLI) | payer MEDICARE, OTHER ==
--- NOTE | 2023-07-21 18:02 | MR ---
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 COMPARISON: 04/26/[address] 07/28/2018 TECHNIQUE: Multiplanar multi-sequence imaging was performed without contrast. Post contrast imaging was performed. Post IV contrast subtraction images were also submitted for review. IV Contrast: 10 cc Gadavist FINDINGS: LOWER CHEST: The heart is mildly enlarged for size. ABDOMEN Liver: No evidence for hepatic steatosis or cirrhosis. Gallbladder and Bile ducts: No evidence for ductal dilation, or biliary stricture or evidence of chol edocholithiasis. The gallbladder is within normal limits. Pancreas: No ductal dilation. No evidence for solid mass. Spleen: Normal for size. Adrenal glands: Unremarkable. Kidneys: Right: Multiple high T2 and low T2 signal cysts are seen throughout the parenchyma. The largest measu ring up to 6.1 x 3.8 cm which is high T2 low T1 signal. The largest intrinsic 1 signal cyst measuring up to 5.4 cm. No abnormal postcontrast enhancement which is confirmed on subtraction imaging. No samira picious solid renal neoplasms. No hydronephrosis. Left: Multiple high T2 and low T2 signal cysts are seen throughout the parenchyma. The largest measur ing up to 10.5 x 9.2 cm cm which is high T2 low T1 signal. The largest intrinsic 1 signal cyst measur ing up to 2.2 cm. No abnormal postcontrast enhancement which is confirmed on subtraction imaging. No suspicious solid renal neoplasms. No hydronephrosis. Stomach and Bowel: No evidence for bowel wall thickening or evidence for obstruction.. Peritoneum: No evidence of pneumoperitoneum or free fluid. Vasculature: No aortic aneurysm. Musculoskeletal: The osseous structures appear intact. Lymph Nodes: No gross evidence for lymphadenopathy. Abdominal wall: There are stimulator device noted in the left buttock with a total wire noted. IMPRESSION: Bilateral Bosniak type I and type II equivalent renal cysts. No solid renal neoplasms identified.
== END | disposition home or self-care (01) ==
LOC: RADMRIMAIN 07-07 12:03
PROVIDERS: ATTEND Urology
DX: Z53.9 Procedure and treatment not carried out, unspecified reason (principal)
CPT/HCPCS: 74183; A9585

== ENCOUNTER → 2023-09-08 | Outpatient (CLI) | payer MEDICARE, OTHER ==
--- NOTE | 2023-09-12 15:32 | MR ---
EXAMINATION TYPE: MR pancreas wo/w con DATE OF EXAM: 09/08/2023 12:15 PM CLINICAL INDICATION:Male, 73 years old with history of R43.0 ANOSMIA; PHH, Weight loss, gallbladder r emoval COMPARISON: MR 07/20/2023 TECHNIQUE: Multiplanar multi-sequence imaging was performed without contrast. Post contrast imaging was performed. Post IV contrast subtraction images were also submitted for review. IV Contrast: 10 cc Gadobutrol FINDINGS: LOWER CHEST: No gross irregularity. ABDOMEN Liver: No evidence for hepatic steatosis or cirrhosis. Gallbladder and Bile ducts: No evidence for ductal dilation, or biliary stricture or evidence of chol edocholithiasis. The gallbladder appears surgically absent. Pancreas: No ductal dilation. No evidence for solid mass. Pancreatic tail cystic lesion measuring up to 18 mm poorly visualized due to patient restricted parameters. Postcontrast imaging in this region is not definitively demonstrate postcontrast enhancement however evaluation is again limited due to p atient's restricted parameters. Spleen: Normal for size. Adrenal glands: Unremarkable. Kidneys: Similar findings to the last MRI. Right: Similar scattered high T2 and low T2 signal cysts are seen throughout the parenchyma. The larg est measuring up to 6.1 x 3.8 cm which is high T2 low T1 signal. The largest intrinsic T1 signal cyst measuring up to 5.4 cm. No abnormal postcontrast enhancement which is confirmed on subtraction imagi ng. No suspicious solid renal neoplasms. No hydronephrosis. Left: Similar scattered high T2 and low T2 signal cysts are seen throughout the parenchyma. The large st measuring up to 10.5 x 9.2 cm which is high T2 /low T1 signal. The largest intrinsic T1 signal cys t measuring up to 2.2 cm. No abnormal postcontrast enhancement which is confirmed on subtraction imag ing. No suspicious solid renal neoplasms. No hydronephrosis. Stomach and Bowel: No evidence for bowel wall thickening or evidence for obstruction. Retroperitoneum/Peritoneum: No evidence of pneumoperitoneum or free fluid. Vasculature: No aortic aneurysm. Musculoskeletal: The osseous structures appear intact. L1 vertebral body height T2 signal lesion like ly representing vertebral body hemangioma in the absence of risk factors. This demonstrates low signa l on fat saturated T1-weighted imaging Lymph Nodes: No gross evidence for lymphadenopathy. Abdominal wall: Unremarkable. IMPRESSION: Limited evaluation due to patient's has neuro stimulator with restrictive parameters causing decrease in image quality and increasing scan time. 1. The pancreas is poorly visualized as a result of restricted parameters. There is pancreatic tail cystic lesion which could represent intraductal papillary mucinous neoplasm versus other cystic neopl asms versus sequela prior pancreatitis. Follow-up in one year is recommended pancreatic mass protocol with IV contrast. 2. Similar Bilateral Bosniak type I and type II equivalent renal cysts. No solid renal neoplasms juanita ntified.
== END | disposition home or self-care (01) ==
LOC: RADMRIMAIN 10:35
PROVIDERS: ATTEND Internal Medicine Gastroenterology
DX: N28.1 Cyst of kidney, acquired (principal); K86.2 Cyst of pancreas; R19.8 Other specified symptoms and signs involving the digestive system and abdomen; R43.0 Anosmia; R63.4 Abnormal weight loss; Z90.49 Acquired absence of other specified parts of digestive tract
CPT/HCPCS: 74183; A9585

== ENCOUNTER 2023-10-19 07:41 | Day surgery (SDC) | payer MEDICARE, OTHER ==
[2023-10-17 16:54] VITALS: BMI 32.6
[~2023-10-19 07:41] MED LIST changes: -LACTATED RINGERS 1,000 ML IV SCH; +LIDOCAINE 1% (10MG/ML) FOR IV START INTRADERMA PRN
[2023-10-19] MEDS: LACTATED RINGERS 1,000 ML IV SCH (07:58)
[2023-10-19 08:12] VITALS: RESP 16; TEMP 97.1
[2023-10-19] MEDS ORDERED: PROPOFOL 10 MG/ML 20 ML VIAL IV ONE (08:40)
[2023-10-19] MEDS ORDERED: LIDOCAINE 2% (PF) 20 MG/ML 5 ML VIAL ONE (08:40)
--- NOTE | 2023-10-19 09:06 | P.PCN ---
Date of Procedure: 10/19/23 Procedure(s) Performed: Brief history: Patient is a pleasant 63-year-old white male scheduled for an elective upper endoscopy as well as colonoscopy as a part of evaluation of epigastric pain, early satiety and progressive weight loss of almost 30 pounds in the last 1 year duration. He had extensive workup that was negative. Recent CT of the abdomen and MRI of the pancreas was negative. Gastric emptying scan was negative. Upper endoscopy in February 2023 was unremarkable. Because of the persistent symptoms and progressively close he scheduled for an upper endoscopy as well as colonoscopy to evaluate further. Procedure performed: Esophagogastroduodenoscopy with biopsy Colonoscopy Preoperative diagnosis: Epigastric pain, early satiety, abdominal discomfort and progressive weight loss of 40 pounds in the last 1 year duration. Anesthesia: [facility] Procedure: After informed consent was obtained from the patient was brought into the endoscopy unit and IV sedation was administered by anesthesia under continuous monitoring. Initially upper endoscopy was done. The Olympus GF 160 video endoscope was inserted inserted into the mouth and esophagus intubated without any difficulty and was gradually advanced into the stomach and duodenum and carefully examined. The bulb and second part of the duodenum appeared normal. Biopsies were done from the duodenum to evaluate for celiac disease. The scope was then withdrawn into the stomach adequately insufflated with air and upon careful examination the antrum diffuse gastritis and biopsies were done from this area. Mucosa of the body, cardia and fundus appeared normal. The scope was then withdrawn into the esophagus. The GE junction was located at 40 cm to the incisors. It appeared regular with no erythema erosions or ulcerations. Rest of the esophagus appeared normal. Patient tolerated the procedure well. At this time the patient continued to remain sedation. Initial digital rectal examination was normal. Olympus CF 160 video colonoscope was then inserted into the rectum and gradually advanced to the cecum without any difficulty. Careful examination was performed as the scope was gradually being withdrawn. The prep was excellent. The cecum, ascending colon, transverse colon, descending colon, sigmoid colon and rectum appeared normal. Retroflexion was performed in the rectum and grade 2 internal were noted. His diverticulosis seen. Patient tolerated the procedure well. Impression: 1. Upper endoscopy revealed mild diffuse antral gastritis but no evidence of esophagitis or peptic ulcer disease 2. Colonoscopy revealed scattered diffuse diverticulosis but no evidence of colorectal neoplasia small internal hemorrhoids. Recommendations: Findings of this examination were discussed with the patient as well as his family. He was advised to follow-up with the biopsy results. He will be seen in the office in 3 to 4 weeks.
[2023-10-19 09:42] VITALS: BP 170/83; PULSE 72
== END 2023-10-19 10:05 | disposition home or self-care (01) ==
LOC: ORWHC2ENDO 07:41
PROVIDERS: ATTEND Internal Medicine Gastroenterology
DX: K29.50 Unspecified chronic gastritis without bleeding (principal); B96.81 Helicobacter pylori [H. pylori] as the cause of diseases classified elsewhere; K57.30 Diverticulosis of large intestine without perforation or abscess without bleeding; I48.91 Unspecified atrial fibrillation; I10 Essential (primary) hypertension; E78.5 Hyperlipidemia, unspecified; G47.33 Obstructive sleep apnea (adult) (pediatric); M19.90 Unspecified osteoarthritis, unspecified site; E03.9 Hypothyroidism, unspecified; K21.9 Gastro-esophageal reflux disease without esophagitis; Z79.01 Long term (current) use of anticoagulants; Z79.899 Other long term (current) drug therapy
CPT/HCPCS: 88305; 45378; 43239; J2704; J2001

== ENCOUNTER → 2023-11-29 | Outpatient (CLI) | payer MEDICARE, OTHER ==
[2023-11-29 16:10] LABS: African American GFR (CKD) >90 (>60 ml/min/1.73 sqM); Blood Urea Nitrogen 22 mg/dL (9-20); Non-African American GFR(CKD) 90 (>60 ml/min/1.73 sqM)
--- NOTE | 2023-12-03 16:15 | CT ---
EXAMINATION TYPE: CT angio abdomen pelvis CT DLP: 1641.9 mGycm, Automated exposure control for dose reduction was used. DATE OF EXAM: 11/29/2023 5:38 PM COMPARISON: MRI 07/20/2023, pancreas 09/08/2023 CLINICAL INDICATION:Male, 73 years old with history of R10.13 EPIGASTRIC PAIN; PHH, 55 lb weightloss over 8 months, severe abdominal pain TECHNIQUE: Multiple thin slice sub-millimeter images were obtained after administration of contrast. 3-D reconstructed images and maximum intensity projection images were obtained. CT angio abdomen pel vis CT Contrast: Contrast used:100 mL of Isovue 370 without and with IV Contrast, Oral contrast used: without Oral Contrast None FINDINGS: CTA Abdomen and pelvis: The abdominal aorta does not demonstrate aneurysmal dilatation. Mild atheros clerotic plaque is identified within the abdominal aorta. The origins of the superior mesenteric art janell, renal arteries, inferior mesenteric artery, and celiac axis are patent. The iliac vessels are n ormal in morphology there is one right and 3 left renal arteries. LOWER CHEST: The heart is mildly enlarged for size. No evidence of focal consolidation, pneumothorax or pleural effusion. LIVER: Unremarkable GALLBLADDER AND BILE DUCTS: Gallbladder is surgically absent with mild intrahepatic and extra hepatic biliary dilatation likely physiologic and a postcholecystectomy change. No evidence of choledocholit hiasis. PANCREAS: Unremarkable. SPLEEN: Unremarkable. ADRENAL GLANDS: Unremarkable. KIDNEYS AND URETERS: Bilateral simple appearing renal cysts. There is right indeterminate renal cyst measuring 55 Hounsfield units measuring 16 mm and right posterior proteinaceous/hemorrhagic cyst stefania uring 44 mm. Nonobstructing bilateral renal calculi measuring up to 4 mm on the left and 2 mm on the right. PELVIS BLADDER: Unremarkable REPRODUCTIVE: Prostate is enlarged in size measuring 5.6 cm in transverse dimension. ABDOMEN & PELVIS STOMACH AND BOWEL: Second portion duodenal diverticulum. No evidence of bowel obstruction. Scattered colonic diverticula. The appendix is normal. PERITONEUM: No evidence of pneumoperitoneum or free fluid. VASCULATURE: No evidence of aortic aneurysm. MUSCULOSKELETAL: No acute osseous abnormalities, sacral neurostimulator present. LYMPH NODES: No gross evidence for lymphadenopathy. SOFT TISSUE/ABDOMINAL WALL: Fat-containing umbilical hernia. IMPRESSION: 1. No evidence for vascular occlusion. 2. Mild atherosclerotic disease of the arterial vasculature. No evidence for aneurysm or dissection. 3. No evidence for acute abdominal process to explain the patient's pain. 4. No evidence for lymphadenopathy or mass. 5. Bilateral renal cysts some of which appear simple, others are more indeterminate and lastly there is at least one proteinaceous/hemorrhagic cyst. Findings similar to 07/20/2023 MRI. 6. Colonic diverticulosis. 7. Bilateral obstructing renal calculi. 8. Prostatomegaly, correlate serum PSA. 9. Cholecystectomy with physiologic dilation of the biliary system similar to prior.
== END | disposition home or self-care (01) ==
LOC: RADCTMAIN 15:13
PROVIDERS: ATTEND Internal Medicine Gastroenterology
DX: N28.1 Cyst of kidney, acquired (principal); K57.30 Diverticulosis of large intestine without perforation or abscess without bleeding; N20.0 Calculus of kidney; N40.0 Benign prostatic hyperplasia without lower urinary tract symptoms; I70.90 Unspecified atherosclerosis
CPT/HCPCS: 82565; 84520; 36415; 74174; Q9967

== ENCOUNTER → 2024-01-30 | Outpatient (CLI) | payer MEDICARE, OTHER ==
--- NOTE | 2024-02-26 20:21 | MR ---
Site ID synapse default Patient Leonid Carmona L ID [id number] Age/Gender: 73Y, M Order # N/A Procedure MR kidney wo/w con Date 01/30/2024 3:56:03 PM EXAMINATION TYPE: MR kidney wo/w con DATE OF EXAM: 02/11/2024 12:35 AM INDICATION: Patient age: Male; 73 year old; Reason for study: Left renal mass COMPARISON: CT abdomen and pelvis 11/29/2023, MR pancreas 09/08/2023, 08/09/23 TECHNIQUE: Multiplanar multi-sequence imaging was performed without and with IV contrast. The patien t was given 10 ccs of Gadavist intravenously and dynamic imaging was performed. Post IV contrast subt raction images were also submitted for review. FINDINGS: Motion degraded exam. LOWER CHEST: The heart is mildly enlarged for size. ABDOMEN: Liver: No evidence for hepatic steatosis or cirrhosis. Gallbladder and Bile ducts: No evidence for ductal dilation, or biliary stricture or evidence of chol edocholithiasis. The gallbladder is surgically absent. Pancreas: No ductal dilation. T2 hyperintense 1.6 cm lesion within the distal pancreatic body (series 901, image 25). Overall stable size from prior MRI. There appears to be peripheral nodular enhanceme nt (series 1101, image 559). Spleen: Normal for size. Adrenal glands: Unremarkable. Kidneys: Right: Multiple high T2 and low T2 signal cysts are seen throughout the parenchyma. The largest measu ring up to 5.6 x 4.3, previously (6.1 x 3.8 cm) which is high T2 low T1 signal and demonstrates thin wall with no enhancement and consistent with a simple cyst (series 301, image 31). The largest intrin sic T1 signal cyst measuring up to 4.6 cm. (Series 1001, image 89) Previously 5.4. Demonstrates enhan cement of the wall laterally without mural nodule. Approximately 9 T1 hyperintense cysts identified w ithout mural nodularity or septations. None of these demonstrate concerning enhancement. No abnormal postcontrast enhancement which is confirmed on subtraction imaging. No suspicious solid renal neoplas ms. No hydronephrosis. Left: Multiple high T2 and low T2 signal cysts are seen throughout the parenchyma. The largest measur ing up to 9.1 cm which is high T2 low T1 signal. This demonstrates a few T1 intrinsic foci without en hancement. The largest intrinsic T1 signal cyst measuring up to 2.2 cm. No abnormal postcontrast enha ncement which is confirmed on subtraction imaging. Approximately 9 T1 intrinsic hyperintense lesions. None of these lesions demonstrate definitive septations and are stable. No suspicious solid renal ne oplasms. No hydronephrosis. Stomach and Bowel: No evidence for bowel wall thickening or evidence for obstruction. Periampullary d uodenal diverticulum. Peritoneum: No evidence of pneumoperitoneum or free fluid. Vasculature: No aortic aneurysm. Musculoskeletal: The osseous structures appear intact. Benign vertebral hemangioma involving the L1 v ertebral body. Lymph Nodes: No gross evidence for lymphadenopathy. Abdominal wall: There are stimulator device noted in the left buttock with a total wire noted. IMPRESSION: 1. Relatively stable bilateral Bosniak type I and type II equivalent renal cysts. No enhancing solid renal neoplasms identified. 2. Indeterminate pancreatic 1.6 cm body cystic lesion with enhancement identified. Etiologies includ e neuroendocrine tumor versus IPMN versus cystadenoma versus other. Consider endoscopic ultrasound fo r further evaluation.
== END | disposition home or self-care (01) ==
LOC: RADMRIMAIN 16:24
PROVIDERS: ATTEND Urology
DX: D41.02 Neoplasm of uncertain behavior of left kidney (principal); N28.1 Cyst of kidney, acquired; N28.89 Other specified disorders of kidney and ureter
CPT/HCPCS: 74183; A9585

== ENCOUNTER 2024-03-24 09:33 | Emergency (ER) | payer MEDICARE, OTHER ==
[2024-03-24 09:47] VITALS: PULSE 69
--- NOTE | 2024-03-24 10:33 | ED ---
Back Pain HPI - General Chief Complaint: Back Pain/Injury Stated Complaint: Lower back pain Time Seen by Provider: 03/24/24 10:30 Source: patient, family, RN notes reviewed Mode of arrival: ambulatory Limitations: no limitations - History of Present Illness Initial Comments: 73-year-old male presented to ER with a chief complaint of lumbar back pain. He states this is chronic in nature and has been worked up years ago by orthopedic spine and neuro information technology specialist. He states on Sunday morning he had an exacerbation/tightness of pain causing decreased motion and painful ambulation. He was seen in [facility] and received IM morphine and steroids which improved pain. Patient was sent home with Gage and prednisone. He states after pain medication wore off he had had an increase in pain seems to have come back with "a vengeance". He denies any new injuries or traumas. Denies any radiation of pain, saddle paresthesias, bowel or bladder incontinence, fevers or chills. Patient states he does typically ambulate with a cane but this has been difficult due to his back pain. - Related Data Home Medications Medication Instructions Recorded Confirmed Pramipexole Di-HCl [Mirapex] 0.5 mg PO HS 07/19/15 10/17/23 Fenofibrate Nanocrystallized 160 mg PO QAM 05/17/16 10/17/23 [Triglide] Levothyroxine Sodium [Synthroid] 75 mcg PO QAM 10/11/17 10/17/23 Celecoxib [CeleBREX] 200 mg PO BID 07/28/18 10/17/23 Tamsulosin HCl [Flomax] 0.4 mg PO DAILY 01/06/21 10/17/23 amLODIPine [Norvasc] 10 mg PO DAILY 01/06/21 10/17/23 Rivaroxaban [Xarelto] 20 mg PO DAILY 12/15/22 10/17/23 Losartan Potassium 100 mg PO DAILY 10/17/23 10/17/23 Pantoprazole [Protonix] 40 mg PO BID 10/17/23 10/17/23 Previous Rx's Medication Instructions Recorded Cyclobenzaprine [Flexeril] 5 mg PO TID PRN #15 tablet 03/24/24 Allergies Allergy/AdvReac Type Severity Reaction Status Date / Time No Known Allergies Allergy Verified 03/24/24 09:47 Review of Systems ROS Statement: Those systems with pertinent positive or pertinent negative responses have been documented in the HPI. ROS Other: All systems not noted in ROS Statement are negative. Past Medical History Past Medical History: Atrial Fibrillation, Chest Pain / Angina, GERD/Reflux, Hyperlipidemia, Hypertension, Osteoarthritis (OA), Pneumonia, Pulmonary Embolus (PE), Sleep Apnea/CPAP/BIPAP, Thyroid Disorder Additional Past Medical History / Comment(s): chronic lower backpain, DJD, neuropathy bilateral legs, diverticulosis,. PE (diagnosed 07/28/2018), restless leg syndrome, no cpap used, HAVING PROBLEMS WITH FOOD-FOOD MAKES GIVES HIM N/V/D History of Any Multi-Drug Resistant Organisms: None Reported Past Surgical History: Adenoidectomy, Breast Surgery, Cholecystectomy, Heart Catheterization, Joint Replacement, Orthopedic Surgery, Tonsillectomy Additional Past Surgical History / Comment(s): L breast benign lumpectomy, 2 lumpectomy left leg, R shoulder surgery -supraspinatus, bilateral knees unicompartmental replacements, colonoscopy, vasectomy with reversal.left thumb partial amputaion, orchiectomy (04/2016) , EGD 02/2023 Past Anesthesia/Blood Transfusion Reactions: No Reported Reaction, Unable to Obtain Additional Past Anesthesia/Blood Transfusion Reaction / Comment(s): adopted-no family hx Past Psychological History: No Psychological Hx Reported Smoking Status: Never smoker Past Alcohol Use History: None Reported Past Drug Use History: None Reported - Past Family History Father Family Medical History: No Reported History Additional Family Medical History / Comment(s): Pt adopted and does not know family history. General Exam Limitations: no limitations General appearance: alert, in no apparent distress Neck exam: Present: normal inspection. Absent: tenderness, meningismus, lymphadenopathy Respiratory exam: Present: normal lung sounds bilaterally. Absent: respiratory distress, wheezes, rales, rhonchi, stridor Cardiovascular Exam: Present: regular rate, normal rhythm, normal heart sounds. Absent: systolic murmur, diastolic murmur, rubs, gallop, clicks Extremities exam: Present: pedal edema (2+ bilateral pretibial pitting edema.) Back exam: Present: normal inspection, tenderness (L1-L3) Neurological exam: Present: alert, oriented X3, CN II-XII intact Skin exam: Present: warm, dry, intact, normal color. Absent: rash Course Vital Signs 03/24/24 03/24/24 09:43 11:42 Temperature 97.7 F 98.0 F Pulse Rate 69 69 Respiratory 20 18 Rate Blood Pressure 156/112 171/78 O2 Sat by Pulse 98 98 Oximetry Medical Decision Making - Medical Decision Making Was pt. sent in by a medical professional or institution (, MARY, CEMENT PRODUCTION PLANT OPERATOR, urgent care, hospital, or longterm...) When possible be specific @ -No Did you speak to anyone other than the patient for history (EMS, parent, family, police, friend...)? What history was obtained from this source @ -No Did you review nursing and triage notes (agree or disagree)? Why? @ -I reviewed and agree with nursing and triage notes Were old charts reviewed (outside hosp., previous admission, EMS record, old EKG, old radiological studies, urgent care reports/EKG's, longterm records)? Report findings @ -No old charts were reviewed Differential Diagnosis (chest pain, altered mental status, abdominal pain women, abdominal pain men, vaginal bleeding, weakness, fever, dyspnea, syncope, headache, dizziness, GI bleed, back pain, seizure, CVA, palpatations, mental health, musculoskeletal)? @ -Differential Back Pain: Strain, zoster, cauda equina syndrome, epidural abscess, vertebral osteomyelitis, discitis, fracture, subluxation, disc herniation, DJD, spinal stenosis, dissection, AAA, pancreatitis, peptic ulcer disease, pyelonephritis, kidney stone, this is not meant to be an all-inclusive list. EKG interpreted by me (3pts min.). @ -None done X-rays interpreted by me (1pt min.). @ -Lumbar spine x-ray showing a superior endplate deformity of L4. CT interpreted by me (1pt min.). @ -None done U/S interpreted by me (1pt. min.). @ -None done What testing was considered but not performed or refused? (CT, X-rays, U/S, labs)? Why? @ -None What meds were considered but not given or refused? Why? @ -None Did you discuss the management of the patient with other professionals (professionals i.e. , MARY, CEMENT PRODUCTION PLANT OPERATOR, lab, RT, psych nurse, social media campaign manager, microbiology technologist, teacher, licensing officer, rn case manager)? Give summary @ -No Was smoking cessation discussed for >3mins.? @ -No Was critical care preformed (if so, how long)? @ -No Were there social determinants of health that impacted care today? How? (Homelessness, low income, unemployed, alcoholism, drug addiction, transportation, low edu. Level, literacy, decrease access to med. care, usp, rehab)? @ -No Was there de-escalation of care discussed even if they declined (Discuss DNR or withdrawal of care, Hospice)? DNR status @ -No What co-morbidities impacted this encounter? (DM, HTN, Smoking, COPD, CAD, Cancer, CVA, ARF, Chemo, Hep., AIDS, mental health diagnosis, sleep apnea, morbid obesity)? @ -Chronic back pain Was patient admitted / discharged? Hospital course, mention meds given and route, prescriptions, significant lab abnormalities, going to OR and other pertinent info. @ -Discharge. 73-year-old male presented to ER with a chief complaint of back pain. History and physical exam completed. Vitals within normal limits. Patient in no signs of acute distress and nontoxic-appearing. Exam remarkable for tenderness to lumbar vertebrae. Bilateral lower extremities neurovascular intact. Patient does have pitting edema but states this is chronic in nature. He denies any shortness of breath or chest pain. No red flag back pain symptoms to get a cauda equina syndrome. X-rays obtained showing a superior endplate deformity at L4. Patient received p.o. Flexeril and IM Dilaudid for pain control in the ER, with improvement. Upon reevaluation, patient resting comfortably in exam room in no signs of acute distress. Patient reports this L4 deformity is known. Flexeril will be prescribed. Advised him to not take this medication with Gage as they may have interactions. Has advised close follow- up with orthopedic information technology specialist. Referrals were given. Strict return parameters discussed. Patient discharged stable condition. Patient verbally expressed understanding agreement care plan. Case discussed with ED attending, Dr. Diehl. Undiagnosed new problem with uncertain prognosis? @ -No Drug Therapy requiring intensive monitoring for toxicity (Heparin, Nitro, Insulin, Cardizem)? @ -No Were any procedures done? @ -No Diagnosis/symptom? @ -Chronic back pain/superior endplate deformity of L4 Acute, or Chronic, or Acute on Chronic? @ -Acute Uncomplicated (without systemic symptoms) or Complicated (systemic symptoms)? @ -Uncomplicated Side effects of treatment? @ -No Exacerbation, Progression, or Severe Exacerbation? @ -No Poses a threat to life or bodily function? How? (Chest pain, USA, PA, pneumonia, PE, COPD, DKA, ARF, appy, cholecystitis, CVA, Diverticulitis, Homicidal, Suicidal, threat to staff... and all critical care pts) @ -No - Radiology Data Radiology results: report reviewed, image reviewed Disposition Clinical Impression: Chronic back pain, Compression fracture of L4 vertebra Disposition: HOME SELF-CARE Condition: Stable Instructions (If sedation given, give patient instructions): Acute Low Back Pain (ED) Additional Instructions: Follow-up with orthopedics. Do not take Flexeril and Gage together as these may make you drowsy. Return to the ER for any new or worsening concerns. Prescriptions: Cyclobenzaprine [Flexeril] 5 mg PO TID PRN #15 tablet PRN Reason: Muscle Spasm Is patient prescribed a controlled substance at d/c from ED?: No Referrals: Nicolás Mir MD [Primary Care Provider] - 1-2 days Chantell Stern DO [Doctor of Osteopathic Medicine] - 1-2 days Time of Disposition: 11:21
[2024-03-24] MEDS: HYDROmorphone 1 MG/ML 1 ML SYRINGE IM STA (10:45)
[2024-03-24] MEDS: CYCLOBENZAPRINE 5 MG TAB PO STA (10:46)
--- NOTE | 2024-03-24 11:04 | XR ---
EXAMINATION TYPE: XR lumbar spine 2 or 3V DATE OF EXAM: 03/24/2024 CLINICAL HISTORY: pain TECHNIQUE: Three views of the lumbar spine are submitted. COMPARISON: None. FINDINGS: There are 5 lumbar type vertebral bodies identified. The lumbar spine shows satisfactory alignment w ithout evidence of acute fracture or dislocation. Vertebral body heights are within normal limits. Loss of height superior endplate of L4 is of uncertain age and/or etiology. The overlying soft tissu e appears unremarkable. IMPRESSION: Loss of height superior endplate of L4 is of uncertain age and/or etiology. [facility], , 03/24/2024 11:01 AM
[2024-03-24 11:43] VITALS: BP 171/78; RESP 18; TEMP 98
== END 2024-03-24 11:43 | disposition home or self-care (01) ==
LOC: EC 09:33
CPT/HCPCS: 72100; 96372; 99283

== ENCOUNTER → 2024-04-24 | Outpatient (CLI) | payer MEDICARE, OTHER ==
--- NOTE | 2024-04-30 08:49 | MR ---
EXAMINATION TYPE: MR lumbar spine wo con DATE OF EXAM: 04/24/2024 4:18 PM COMPARISON: 04/26/2021. 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 IV Contrast: mL (None, if empty) FINDINGS: Alignment: The lumbar vertebral bodies have preserved heights and alignment. Cord: The conus medullaris and the distal spinal cord appear unremarkable with regards to their signa l intensity and morphology. Bones/Discs: Mild degeneration changes throughout the spine with osteophyte formation and facet joint arthropathy. Multilevel disc desiccation is present. Mild bony edema on the superior endplate of L4 subtle curvilinear low signal cortical buckling . T12-L1: No evidence of significant spinal canal stenosis or neural foraminal stenosis. L1-L2: No evidence of significant spinal canal stenosis or neural foraminal stenosis. L2-L3: No evidence of significant spinal canal stenosis or neural foraminal stenosis. L3-L4: No evidence of significant spinal canal stenosis. Facet joint arthropathy mild bilateral neura l foraminal stenosis. L4-L5: Disc bulge and facet joint arthropathy result in mild spinal canal and moderate bilateral neur al foraminal stenosis. L5-S1: The disc has a rounded posterior morphology without significant spinal canal stenosis. Facet j oint arthropathy with mild right and mild to moderate left neural foraminal stenosis. No significant spinal canal or neural foraminal stenosis in the remainder of the visualized levels. Other findings: Simple appearing renal cysts. IMPRESSION: 1. No definitive evidence of disc herniation or significant spinal canal stenosis. 2. Mild moderate disc degeneration with associated osteoarthritic changes. 3. New from prior, L4 compression fracture/Schmorl's node with 25% height loss. No retropulsion. No significant spinal canal or neural foraminal stenosis. [facility], , 04/30/2024 8:47 AM
== END | disposition home or self-care (01) ==
LOC: RADMRIMAIN 15:22
PROVIDERS: ATTEND Orthopaedic Surgery Orthopaedic Surgery of the Spine
DX: S32.040A Wedge compression fracture of fourth lumbar vertebra, initial encounter for closed fracture (principal); M51.360 Other intervertebral disc degeneration, lumbar region with discogenic back pain only; M47.816 Spondylosis without myelopathy or radiculopathy, lumbar region; R26.2 Difficulty in walking, not elsewhere classified; N28.1 Cyst of kidney, acquired
CPT/HCPCS: 72148

== ENCOUNTER 2024-04-30 07:32 | Day surgery (SDC) | payer MEDICARE, OTHER ==
[2024-04-25 09:12] VITALS: BMI 30.2
[~2024-04-30 07:32] MED LIST changes: -LIDOCAINE 1% (10MG/ML) FOR IV START INTRADERMA PRN; +TETRACAINE 0.5% OPHTH (PF) DROPS 4 ML BTL OP PRN
[2024-04-30] MEDS: IV FLUID CONTINUATION 1,000 ML IV ONE (07:57)
[2024-04-30] MEDS: LACTATED RINGERS 1,000 ML IV SCH (07:58)
[2024-04-30] MEDS: PHENYLEPHRINE 2.5% OPHTH DRP 2ML OP PRN (08:03)
[2024-04-30 08:06] VITALS: RESP 16; TEMP 97.8
[2024-04-30] MEDS: CYCLOPENTOLATE 1% OPHTH SOLN 2 ML BTL OP PRN (08:06)
[2024-04-30] MEDS ORDERED: MIDAZOLAM 2 MG/2 ML VIAL ONE (08:56)
[2024-04-30] MEDS: EPINEPHrine (PF) 0.3 ML in BALANCED SALT IRRIG SOLN COMB2 500 ML IRRIGATION ONE (09:02)
[2024-04-30] MEDS: BALANCED SALT IRRIG SOLN COMB2 15 ML IRRIG.SOLN INTRAOCULA ONE (09:07)
[2024-04-30] MEDS: HYALURONATE SODIUM INTRAOCULAR 1 EACH SYRINGE (12MG/ML) INTRAOCULA ONE (09:07)
[2024-04-30] MEDS: LIDOCAINE 1% (PF) 10MG/ML VIAL SQ ONE (09:08)
[2024-04-30] MEDS: EPINEPHrine (PF) 1 MG/ML AMP SQ ONE (09:08)
[2024-04-30] MEDS: TIMOLOL 0.5% OPHTH DROPS 5 ML BTL OP PRN (09:09)
[2024-04-30] MEDS: MOXIFLOXACIN HCL 0.5% DROPS 3 ML BTL OP PRN (09:09)
--- NOTE | 2024-04-30 09:33 | P.OP ---
Date of Procedure: 04/30/24 Preoperative Diagnosis: NS & CS & PSC & Flomax Postoperative Diagnosis: same Procedure(s) Performed: PIOL, OS Implants: [id number] 8.00 Anesthesia: MAC Surgeon: Jaime Alarcon Pathology: none sent Condition: stable Disposition: same day Indications for Procedure: blurry vision Operative Findings: no complications
[2024-04-30 10:00] VITALS: BP 158/98; PULSE 55
--- NOTE | 2024-05-01 09:59 | OP ---
OPERATIVE REPORT DATE OF SERVICE : 04/30/2024 PROCEDURE PERFORMED: Phacoemulsification of cataract and intraocular lens implant of the left eye. PREOPERATIVE DIAGNOSIS: Nuclear sclerosis, cortical sclerosis, posterior subcapsular cataract as well as exposure to Flomax. POSTOPERATIVE DIAGNOSIS: Nuclear sclerosis, cortical sclerosis, posterior subcapsular cataract as well as exposure to Flomax with intraoperative floppy iris. ANESTHESIA: Topical. ESTIMATED BLOOD LOSS: None. SPECIMENS TAKEN: None. DESCRIPTION OF PROCEDURE: After obtaining the appropriate consent, the patient was brought to the operating room. There, he was placed under cardiac monitoring, prepped and draped in the usual sterile manner. He was approached from his left temporal side, and at the 5 o'clock position, an MVR blade was used to create a paracentesis port. Through this opening, 1% Xylocaine MPF with 1:1000 epinephrine MPF and balanced salt solution in a ratio of 1:2:1 was injected into the anterior chamber to improve dilation. This was followed by stabilization of the anterior chamber with Amvisc. At the 3 o'clock position, a 2.5 mm keratome was used to create a self-sealing corneal flap incision due to the lack of response to the med mix to dilate the pupil. A 7 mm Malyugin ring was then inserted on the pupillary sphincter without difficulty. This was followed by beginning at continuous tear capsulorrhexis with a cystotome, which was completed using the Utrata forceps. Hydrodissection and hydrodelineation of the lens were accomplished with balanced salt solution. Phacoemulsification of the lens utilizing phaco chop was accomplished in 13.15 seconds at 11.3% power, additional med mix was instilled into the anterior chamber. This was followed by removal of the remaining cortical material from the capsular bag along with careful polishing of the posterior capsule in capsule vacuum mode. Additional Amvisc was then used to stabilize the capsular bag, and a Bausch and Lomb MX60E 8 diopter posterior chamber intraocular lens was inserted into the capsular bag without difficulty. The Malyugin ring was disinserted and removed from the anterior chamber of the eye. This was followed by removal of all remaining viscoelastic from the in and around the intraocular lens as well as the anterior chamber. The eye was then brought to normal intraocular pressure through the paracentesis port with balanced salt solution and all wounds were confirmed watertight. He then received 2 drops of 0.5% timolol, followed by 2 drops of 0.5% moxifloxacin was then lightly patched and shielded in the usual manner. There were no complications from the procedure. He tolerated the procedure well and was returned to outpatient recovery in good condition. RUI / DHEERAJ: [id number] /
== END 2024-04-30 10:19 | disposition home or self-care (01) ==
LOC: OR 07:32
PROVIDERS: ATTEND Ophthalmology
DX: H25.12 Age-related nuclear cataract, left eye (principal); I10 Essential (primary) hypertension; E78.5 Hyperlipidemia, unspecified; I48.91 Unspecified atrial fibrillation; M54.50 Low back pain, unspecified; K57.30 Diverticulosis of large intestine without perforation or abscess without bleeding; Z79.890 Hormone replacement therapy; Z79.899 Other long term (current) drug therapy
CPT/HCPCS: 66982; C1780; J2250; J0171; J2003

== ENCOUNTER 2024-05-07 08:19 | Day surgery (SDC) | payer MEDICARE, OTHER ==
[2024-05-05 10:36] VITALS: BMI 30.2
[~2024-05-07 08:19] MED LIST changes: +LIDOCAINE 1% (10MG/ML) FOR IV START INTRADERMA PRN
[2024-05-07] MEDS: IV FLUID CONTINUATION 1,000 ML IV ONE (08:44)
[2024-05-07] MEDS: PHENYLEPHRINE 2.5% OPHTH DRP 2ML OP PRN (08:48)
[2024-05-07] MEDS: CYCLOPENTOLATE 1% OPHTH SOLN 2 ML BTL OP PRN (08:51)
[2024-05-07] MEDS: LACTATED RINGERS 1,000 ML IV SCH (08:57)
[2024-05-07 09:04] VITALS: TEMP 97.3
[2024-05-07] MEDS ORDERED: fentaNYL (PF) 50 MCG/ML 2 ML AMP ONE (09:13)
[2024-05-07] MEDS ORDERED: MIDAZOLAM 2 MG/2 ML VIAL ONE (09:13)
[2024-05-07] MEDS: EPINEPHrine (PF) 0.3 ML in BALANCED SALT IRRIG SOLN COMB2 500 ML IRRIGATION ONE (09:29)
[2024-05-07] MEDS: BALANCED SALT IRRIG SOLN COMB2 15 ML IRRIG.SOLN INTRAOCULA ONE (09:32)
[2024-05-07] MEDS: HYALURONATE SODIUM INTRAOCULAR 1 EACH SYRINGE (12MG/ML) INTRAOCULA ONE (09:32)
[2024-05-07] MEDS: TIMOLOL 0.5% OPHTH DROPS 5 ML BTL OP PRN (09:32)
[2024-05-07] MEDS: LIDOCAINE 1% (PF) 10MG/ML VIAL MISCELLANE ONE (09:32)
[2024-05-07] MEDS: MOXIFLOXACIN HCL 0.5% DROPS 3 ML BTL OP PRN (09:32)
[2024-05-07] MEDS: EPINEPHrine (PF) 1 MG/ML AMP SQ ONE (09:33)
--- NOTE | 2024-05-07 09:51 | P.OP ---
Date of Procedure: 05/07/24 Preoperative Diagnosis: NS & CS & PSC Postoperative Diagnosis: same Procedure(s) Performed: PIOL, OD Implants: [id number] 12.00 Anesthesia: MAC Surgeon: Jaime Alarcon Pathology: none sent Condition: stable Disposition: same day Operative Findings: blurry vision Description of Procedure: no complications
[2024-05-07 10:22] VITALS: BP 171/99; PULSE 60; RESP 16
--- NOTE | 2024-05-07 19:13 | OP ---
OPERATIVE REPORT DATE OF SERVICE : 05/07/2024 PROCEDURE: Phacoemulsification of cataract and intraocular lens implant of the right eye. PREOPERATIVE DIAGNOSIS: Nuclear sclerosis, cortical sclerosis, posterior subcapsular cataract. POSTOPERATIVE DIAGNOSIS: Nuclear sclerosis, cortical sclerosis, posterior subcapsular cataract with intraoperative floppy iris. ANESTHESIA: Topical. ESTIMATED BLOOD LOSS: None. SPECIMEN TAKEN: None. NARRATIVE: After obtaining the appropriate consent, the patient was brought to the operating room. There, he was placed under cardiac monitoring and prepped and draped in the usual sterile manner. He was approached from the right temporal side, and at the 11 o'clock position, an MVR blade was used to create a paracentesis port. Through this opening, 1% Xylocaine MPF with 1:1000 epinephrine MPF and balanced salt solution in a ratio of 1:2:1 was injected into the anterior chamber. This was followed by stabilization of the anterior chamber with Amvisc. At the 9 o'clock position, a 2.5 mm keratome was used to create a self-sealing corneal flap incision. Through this temporal incision, a 7 mm Malyugin ring was inserted on the iris sphincter due to the lack of appropriate dilation. This was followed by introduction of the cystotome to begin a continuous tear capsulorrhexis, which was then completed using the Utrata forceps. Hydrodissection and hydrodelineation of the lens were accomplished with balanced salt solution. Phacoemulsification of the lens utilizing phaco chop was accomplished in 15.12 seconds at 12.4% power. Additional med mix was instilled into the anterior chamber. This was followed by removal of the remaining cortical material under irrigation and aspiration as well as careful polishing of the posterior capsule in capsule vacuum mode. Amvisc was then used to stabilize the capsular bag, and a Bausch and Lomb MX60E 12 diopter posterior chamber intraocular lens was then inserted into the capsular bag without difficulty. The remaining viscoelastic was then removed from in and around the intraocular lens. The incisions were confirmed watertight. The patient then received 2 drops of 0.5% timolol, followed by 2 drops of 0.5% moxifloxacin, which was then lightly patched and shielded in the usual manner. There were no complications from the procedure. He tolerated the procedure well and was returned to outpatient recovery in good condition. MMODL / IJN: [id number] /
== END 2024-05-07 10:48 | disposition home or self-care (01) ==
LOC: OR 08:19
PROVIDERS: ATTEND Ophthalmology
DX: H25.811 Combined forms of age-related cataract, right eye (principal); H21.81 Floppy iris syndrome; H35.3121 Nonexudative age-related macular degeneration, left eye, early dry stage; H35.413 Lattice degeneration of retina, bilateral; H44.22 Degenerative myopia, left eye; H35.433 Paving stone degeneration of retina, bilateral; I48.91 Unspecified atrial fibrillation; I10 Essential (primary) hypertension; I11.9 Hypertensive heart disease without heart failure; M19.90 Unspecified osteoarthritis, unspecified site; G25.81 Restless legs syndrome; E78.5 Hyperlipidemia, unspecified; G47.33 Obstructive sleep apnea (adult) (pediatric); G62.9 Polyneuropathy, unspecified; Z86.711 Personal history of pulmonary embolism; Z79.01 Long term (current) use of anticoagulants; Z79.899 Other long term (current) drug therapy; Z96.653 Presence of artificial knee joint, bilateral; Z96.1 Presence of intraocular lens; Z98.52 Vasectomy status; Z98.890 Other specified postprocedural states
CPT/HCPCS: 66982; C1780; J2250; J0171; J3010; J2003

== ENCOUNTER → 2024-12-23 | Outpatient (CLI) | payer MEDICARE, OTHER | END | disposition home or self-care (01) | LOC: RADNMMAIN 06:49 | PROVIDERS: ATTEND Internal Medicine Gastroenterology | DX: Z53.9 Procedure and treatment not carried out, unspecified reason (principal) ==